=== PATIENT | male | born 1945 | race Caucasian/White ===

== ENCOUNTER 2017-09-02 10:06 | Observation (INO) | payer MEDICARE, OTHER ==
[2017-09-02] MEDS ORDERED: Ondansetron 4 MG/2 ML SDV IVPUSH ONE (10:36)
[2017-09-02] MEDS ORDERED: Sodium Chloride 0.9% 1,000 ML IV STA (10:36)
--- NOTE | 2017-09-02 10:42 | EDM.PDOC ---
ED HPI GENERAL MEDICAL PROBLEM - General Chief Complaint: General Stated Complaint: FEVER AND DIZZINESS Time Seen by Provider: 09/02/17 10:10 Source of Information: Reports: Patient History Limitations: Reports: No Limitations - History of Present Illness INITIAL COMMENTS - FREE TEXT/NARRATIVE: HISTORY AND PHYSICAL: History of present illness: Patient is a 72-year-old male who presents to the emergency room with complaints of dizziness, nausea, sweats. Reports last night he started to feel nauseous and had an episode of emesis. Woke up this morning and started to feel "cold sweats" and vomited again and then became dizzy. Describes the dizziness as the room spinning when he is moving his head. When he is sitting still the dizziness subsides. Patient is alert and orientated and neurologically intact. Patient reports that he went to [employer] yesterday for sinus congestion. He was prescribed Augmentin and Phenergan with codeine which she started yesterday. Patient denies any chest pain, shortness of breath, headache, blurred vision, or abdominal pain. Denies any recent head injury, falls, or trauma. Denies any near syncopal events. Has a past medical history of diabetes type 2 which he states is well- controlled and hypertension. Review of systems: As per history of present illness and below otherwise all systems reviewed and negative. Past medical history: As per history of present illness and as reviewed below otherwise noncontributory. Surgical history: As per history of present illness and as reviewed below otherwise noncontributory. Social history: No reported history of drug or alcohol abuse. Family history: As per history of present illness and as reviewed below otherwise noncontributory. Physical exam: General: On toxic-appearing 72-year-old male. Able to speak in full sentences without shortness of breath. Alert and oriented. HEENT: Atraumatic, normocephalic, pupils reactive, negative for conjunctival pallor or scleral icterus, tympanic membranes normal bilaterally, mucous membranes moist, throat clear, neck supple, nontender, trachea midline. No lymphadenopathy. Lungs: Faint expiratory wheezing noted to posterior lower lobes otherwise clear , breath sounds equal bilaterally, chest nontender. Heart: S1S2, regular rate and rhythm. Abdomen: Soft, obese, nondistended, nontender. Negative for masses. Negative for costovertebral tenderness. Pelvis: Stable nontender. Genitourinary: Deferred. Rectal: Deferred. Extremities: Atraumatic, moves all per self, steady on his feet, negative for cords or calf pain. Neurovascular unremarkable. Neuro: Awake, alert, oriented. Cranial nerves II through XII unremarkable. Cerebellum unremarkable. Motor and sensory unremarkable throughout. Exam nonfocal. 1040: Current blood pressure is 200/106, patient is currently taking Lostartan which he states he is compliant with. Due to patient complaints and elevated blood pressure and will obtain a head CT at this time. All other vital signs were reviewed by me. 1152: Current blood pressure is 169/82. Patient reports that he feels "somewhat better". Currently awaiting on head CT and chest x-ray results. 1210: Patient is asleep and oxygen saturation is 88% on room air. When he is awoken he will bring his O2 up to 92-94%. Patient states he still does not feel well. Dr. chi was consult at on this case. He is agreeable to admit this patient. Patient is aware and is agreeable to plan of care. Denies any further questions at this time. Diagnostics: CBC, CMP, troponin, EKG, head CT without contrast, 1 view chest, orthostatic vital signs Therapeutics: IV fluid, Zofran Rocephin and azithromycin Impression: Hypoxia with infiltrate Plan: Observation admission Definitive disposition and diagnosis as appropriate pending reevaluation and review of above. Onset: Today Location: Reports: Head - Related Data Allergies Allergy/AdvReac Type Severity Reaction Status Date / Time No Known Allergies Allergy Verified 09/02/17 10:28 Home Meds: Home Meds Fish Oil/Borage/Flax/Om3,6,9#1 [[place] 3-6-9 1,200 mg Softgel] 2 cap PO BID 03/28 [History] RX: Losartan Potassium 1 tab PO DAILY 03/28/16 [History] metFORMIN HCl [Metformin HCl] 1 tab PO BID 03/28/16 [History] Amoxicillin/Clavulanate K [Augmentin 875 MG/125 MG] 1 tab PO Q12HR 09/02/17 [ History] Past Medical History - Past Health History Medical/Surgical History: Denies Medical/Surgical History HEENT History: Reports: Impaired Vision Cardiovascular History: Reports: Hypertension Genitourinary History: Reports: Prostate Disorder Endocrine/Metabolic History: Reports: Diabetes, Type II Oncologic (Cancer) History: Reports: Prostate - Infectious Disease History Infectious Disease History: Reports: None - Past Surgical History Cardiovascular Surgical History: Reports: None Male Surgical History: Reports: Prostatectomy Social & Family History - Family History Family Medical History: Noncontributory - Tobacco Use Smoking Status *Q: Never Smoker Second Hand Smoke Exposure: Yes - Caffeine Use Caffeine Use: Reports: Coffee Caffeine Use Comment: 2 cups daily - Alcohol Use Days Per Week of Alcohol Use: 0 - Recreational Drug Use Recreational Drug Use: No ED ROS GENERAL - Review of Systems Review Of Systems: ROS reveals no pertinent complaints other than HPI. ED EXAM, GENERAL - Physical Exam Exam: See Below (See dictation) EKG INTERPRETATION EKG Date: 09/02/17 Time: 11:31 Rhythm: NSR Rate (Beats/Min): 66 Comparison: NA - No Prior EKG EKG Interpretation Comments: EKG reviewed by me and Dr. Luong Course - Vital Signs Last Recorded V/S: Last Vital Signs Temp 36.2 C 09/02/17 12:59 Pulse 92 09/02/17 13:01 Resp 15 09/02/17 13:01 BP 169/87 H 09/02/17 13:01 Pulse Ox 73 L 09/02/17 13:01 Orthostatic Blood Pressure [ 177/83 Standing] Orthostatic Blood Pressure [ 183/86 Sitting] Orthostatic Blood Pressure [ 191/83 Supine] - Orders/Labs/Meds Orders: Active Orders 24 hr Category Date Time Status EKG Documentation Completion [RC] STAT Care 09/02/17 10:36 Active Orthostatic Vital Signs [RC] ASDIRECTED Care 09/02/17 12:08 Active RT Aerosol Therapy [RC] ASDIRECTED Care 09/02/17 12:23 Active Chest 1V Frontal [CR] Stat Exams 09/02/17 10:36 Taken Head wo Cont [CT] Stat Exams 09/02/17 10:36 Taken Medication Orders Acetaminophen (Tylenol) 650 mg PO Q4H PRN PRN Reason: Pain (Mild 1-3)/fever Enoxaparin Sodium (Lovenox) 40 mg SUBCUT DAILY CANDICE Sodium Chloride (Normal Saline) 1,000 mls @ 100 mls/hr IV ASDIRECTED CANDICE Last Admin: 09/02/17 16:05 Dose: 100 mls/hr Losartan Potassium (Cozaar) 100 mg PO DAILY CANDICE Ondansetron HCl (Zofran) 4 mg IVPUSH Q4H PRN PRN Reason: Nausea Labs: Laboratory Tests 09/02/17 09/02/17 09/02/17 Range/Units 11:07 11:07 11:07 WBC 12.48 H (4.0-11.0) K/uL RBC 4.90 (4.50-5.90) M/uL Hgb 14.4 (13.0-17.0) g/dL Hct 43.1 (38.0-50.0) % MCV 88.0 (80.0-98.0) fL MCH 29.4 (27.0-32.0) pg MCHC 33.4 (31.0-37.0) g/dL RDW Std Deviation 44.9 (28.0-62.0) fl RDW Coeff of Isael 14 (11.0-15.0) % Plt Count 315 (150-400) K/uL MPV 9.40 (7.40-12.00) fL Neut % (Auto) 85.2 H (48.0-80.0) % Lymph % (Auto) 9.8 L (16.0-40.0) % [place] % (Auto) 3.7 (0.0-15.0) % Eos % (Auto) 1.1 (0.0-7.0) % Baso % (Auto) 0.2 (0.0-1.5) % Neut # (Auto) 10.6 H (1.4-5.7) K/uL Lymph # (Auto) 1.2 (0.6-2.4) K/uL [place] # (Auto) 0.5 (0.0-0.8) K/uL Eos # (Auto) 0.1 (0.0-0.7) K/uL Baso # (Auto) 0.0 (0.0-0.1) K/uL Nucleated RBC % 0.0 /100WBC Nucleated RBCs # 0 K/uL Sodium 141 (136-146) mmol/L Potassium 3.8 (3.5-5.1) mmol/L Chloride 107 (98-110) mmol/L Carbon Dioxide 22 (21-31) mmol/L BUN 18 (6.0-23.0) mg/dL Creatinine 0.9 (0.6-1.5) mg/dL Est Cr Clr Drug Dosing TNP Estimated GFR (MDRD) > 60.0 ml/min Glucose 159 H (60-110) mg/dL Calcium 9.1 (8.8-10.8) mg/dL Total Bilirubin 0.4 (0.1-1.5) mg/dL AST 22 (5-40) IU/L ALT 29 (8-54) IU/L Alkaline Phosphatase 46 (40-150) Troponin I < 0.10 (0.0-0.29) NG/ML Total Protein 7.1 (6.0-8.0) g/dL Albumin 4.0 (3.4-4.8) g/dL Globulin 3.1 (2.0-3.5) g/dL Albumin/Globulin Ratio 1.3 (1.3-2.8) Meds: Medications Generic Name Dose Route Start Last Admin Trade Name Freq PRN Reason Stop Dose Admin Acetaminophen 650 mg 09/02/17 15:39 Tylenol PO Q4H PRN Pain (Mild 1-3)/fever Enoxaparin Sodium 40 mg 09/03/17 09:00 Lovenox SUBCUT DAILY CANDICE Sodium Chloride 1,000 mls @ 100 mls/hr 09/02/17 16:00 09/02/17 16:05 Normal Saline IV 100 mls/hr ASDIRECTED CANDICE Administration Losartan Potassium 100 mg 09/03/17 09:00 Cozaar PO DAILY CANDICE Ondansetron HCl 4 mg 09/02/17 15:39 Zofran IVPUSH Q4H PRN Nausea Discontinued Medications Generic Name Dose Route Start Last Admin Trade Name Freq PRN Reason Stop Dose Admin Albuterol/Ipratropium 3 ml 09/02/17 12:22 09/02/17 12:43 Duoneb 3.0-0.5 Mg/3 Ml NEB 09/02/17 12:23 3 ml ONETIME ONE Administration Azithromycin 500 mg 09/02/17 12:28 09/02/17 12:49 Zithromax PO 09/02/17 12:29 500 mg ONETIME ONE Administration Azithromycin 250 mg 09/03/17 15:45 Zithromax PO Q24H CANDICE Sodium Chloride 1,000 mls @ 999 mls/hr 09/02/17 10:36 09/02/17 11:05 Normal Saline IV 09/02/17 11:36 999 mls/hr NOW STA Administration Sodium Chloride 1,000 mls @ 150 mls/hr 09/02/17 12:00 09/02/17 11:58 Normal Saline IV 150 mls/hr ASDIRECTED CANDICE Administration Ceftriaxone Sodium/Dextrose 1 50 mls @ 100 mls/hr 09/02/17 12:28 09/02/17 12: 49 gm/ Premix IV 09/02/17 12:57 100 mls/hr ONETIME ONE Administration Meclizine HCl 25 mg 09/02/17 11:51 09/02/17 11:57 Antivert PO 09/02/17 11:52 25 mg ONETIME ONE Administration Methylprednisolone Sodium Succinate 125 mg 09/02/17 12:22 09/02/17 12:50 Solu-Medrol IVPUSH 09/02/17 12:23 125 mg ONETIME ONE Administration Ondansetron HCl 4 mg 09/02/17 10:36 09/02/17 11:02 Zofran IVPUSH 09/02/17 10:37 4 mg ONETIME ONE Administration Departure - Departure Time of Disposition: 16:10 Disposition: Refer to Observation Clinical Impression: Hypoxia - Discharge Information - My Orders Last 24 Hours: My Active Orders 09/02/17 10:36 EKG Documentation Completion [RC] STAT Chest 1V Frontal [CR] Stat Head wo Cont [CT] Stat 09/02/17 12:08 Orthostatic Vital Signs [RC] ASDIRECTED 09/02/17 12:23 RT Aerosol Therapy [RC] ASDIRECTED - Assessment/Plan Last 24 Hours: My Active Orders 09/02/17 10:36 EKG Documentation Completion [RC] STAT Chest 1V Frontal [CR] Stat Head wo Cont [CT] Stat 09/02/17 12:08 Orthostatic Vital Signs [RC] ASDIRECTED 09/02/17 12:23 RT Aerosol Therapy [RC] ASDIRECTED
[2017-09-02 11:37] LABS: CHLORIDE,CL 107 mmol/L (98-110); SODIUM,NA 141 mmol/L (136-146)
[2017-09-02] MEDS ORDERED: Meclizine 25 MG Tab PO ONE (11:51)
[2017-09-02] MEDS ORDERED: Sodium Chloride 0.9% 1,000 ML IV SCH (12:00)
[2017-09-02] MEDS ORDERED: methylPREDNISolone Sodium Succinate 125 MG/2 ML SDV IVPUSH ONE (12:22)
[2017-09-02] MEDS ORDERED: Albuterol/Ipratropium 3.0-0.5 MG/3 ML Neb Soln NEB ONE (12:22)
[2017-09-02] MEDS ORDERED: cefTRIAXone 1 GM in Premix Bag 1 BAG IV ONE (12:28)
[2017-09-02] MEDS ORDERED: Azithromycin 250 MG Tab PO ONE (12:28)
--- NOTE | 2017-09-02 15:24 | PCM.HP ---
<Baluch,Ridge - Last Filed: 09/02/17 15:47> H&P History of Present Illness - General Date of Service: 09/02/17 Admit Problem/Dx: Admission Diagnosis/Problem Admission Diagnosis/Problem Hypoxia Source of Information: Patient History Limitations: Reports: No Limitations - History of Present Illness Initial Comments - Free Text/Narative: 72 year old male admitted for Dizziness & CAP. He states that he has been coughing for about 5-6 days now. Cough is productive with yellow colored spuutum. He went to [employer] [facility] yesterday and was prescribed amoxicillin 875 mg yesterday. He took the first dose in the morning. Then at night he started feeling nauseous and vomited. He vomited the second tab of amoxicillin. This morning the nausea continued. He took his amoxicillin and vomited it out. He then developed dizziness and decide to come to the ED. In the ED he was found to be hypoxic with BP 200/106. He was given O2, started on fluids and dizziness improved. He states now he is still feeling dizzy but it is much improved. His hypoxia has resolved. He denies any fever, chills, sob, rader, chest pain, vision change, numbness, tingling. He is not a smoker and does not have any history of COPD. He takes Losartan for HTN and Metformin for DM. ED Course: -CBC, CMP, troponin, EKG, head CT without contrast, 1 view chest, orthostatic vital signs -IV fluid, Zofran - Related Data Allergies/Adverse Reactions: Allergies Allergy/AdvReac Type Severity Reaction Status Date / Time No Known Allergies Allergy Verified 09/02/17 10:28 Home Medications: Home Meds Fish Oil/Borage/Flax/Om3,6,9#1 [[place] 3-6-9 1,200 mg Softgel] 2 cap PO BID 03/28 [History] Losartan Potassium 1 tab PO DAILY 03/28/16 [History] metFORMIN HCl [Metformin HCl] 1 tab PO BID 03/28/16 [History] Amoxicillin/Clavulanate K [Augmentin 875 MG/125 MG] 1 tab PO Q12HR 09/02/17 [ History] Past Medical History - Past Health History Medical/Surgical History: Denies Medical/Surgical History HEENT History: Reports: Impaired Vision Cardiovascular History: Reports: Hypertension Genitourinary History: Reports: Prostate Disorder Endocrine/Metabolic History: Reports: Diabetes, Type II Oncologic (Cancer) History: Reports: Prostate - Infectious Disease History Infectious Disease History: Reports: None - Past Surgical History HEENT Surgical History: Reports: None Cardiovascular Surgical History: Reports: None Male Surgical History: Reports: Prostatectomy Social & Family History - Family History Family Medical History: Noncontributory Cardiac: Reports: Hypertension Endocrine/Metabolic: Reports: Diabetes, type II - Tobacco Use Smoking Status *Q: Never Smoker Second Hand Smoke Exposure: No - Caffeine Use Caffeine Use: Reports: Coffee Caffeine Use Comment: 2 cups daily - Alcohol Use Days Per Week of Alcohol Use: 0 - Recreational Drug Use Recreational Drug Use: No H&P Review of Systems - Review of Systems: Review Of Systems: See Below General: Reports: No Symptoms HEENT: Reports: No Symptoms Pulmonary: Reports: No Symptoms Cardiovascular: Reports: No Symptoms Gastrointestinal: Reports: No Symptoms Genitourinary: Reports: No Symptoms Musculoskeletal: Reports: No Symptoms Skin: Reports: No Symptoms Psychiatric: Reports: No Symptoms Neurological: Reports: Dizziness Hematologic/Lymphatic: Reports: No Symptoms Immunologic: Reports: No Symptoms Exam - Exam Exam: See Below - Vital Signs Vital Signs: Last Vital Signs Temp 36.2 C 09/02/17 12:59 Pulse 92 09/02/17 13:01 Resp 15 09/02/17 13:01 BP 169/87 H 09/02/17 13:01 Pulse Ox 73 L 09/02/17 13:01 Weight: 130 kg - Exam General: Alert, Oriented, Cooperative HEENT: Conjunctiva Clear, EACs Clear, EOMI, Mucosa Moist & Ernest, Nares Patent, Normal Nasal Septum, Posterior Pharynx Clear, Pupils Equal, Pupils Reactive Neck: Supple, Trachea Midline Lungs: Normal Respiratory Effort, Other (mildly diminished breath sounds at right mid lung and right base ). No: Crackles, Rales, Rhonchi, Wheezing Cardiovascular: Regular Rate, Regular Rhythm GI/Abdominal Exam: Soft, Non-Tender Extremities: Normal Inspection, Non-Tender, No Pedal Edema, Normal Capillary Refill Peripheral Pulses: 2+: Radial (L), Radial (R) Skin: Warm, Dry, Intact Neurological: Cranial Nerves Intact, Reflexes Equal Bilateral Neuro Extensive - Mental Status: Alert, Oriented x3 Psychiatric: Alert, Normal Affect, Normal Mood - Patient Data Result Diagrams: 09/02/17 11:07 09/02/17 11:07 *Q Meaningful Use (ADM) - VTE *Q VTE Criteria *Q: - Stroke *Q Stroke Criteria *Q: - AMI *Q AMI Criteria *Q: Problem List Initiated/Reviewed/Updated: Yes Orders Last 24hrs: Medication Orders Sodium Chloride (Normal Saline) 1,000 mls @ 150 mls/hr IV ASDIRECTED [facility] Last Admin: 09/02/17 11:58 Dose: 150 mls/hr Assessment/Plan Comment:: Assessment: 72 yo male with history of DM and HTN admitted for CAP and Dizziness. He was hypoxic but is breathing comfortably on RA now. He will be admitted to observation. CAP: Start Ceftriaxone IV and Azithromycin PO. Obtain sputum & blood cultures if fever develops. Leukocytosis: as per above. monitor Dizziness: likely secondary to dehydration. start IV NS. Nausea and Vomiting: start Zofran 4mg IV PRN DM: hold home metformin for today. monitor glucose HTN: resume home Losartan <Duke Bajwa - Last Filed: 09/02/17 16:57> H&P History of Present Illness - General Admit Problem/Dx: Admission Diagnosis/Problem Admission Diagnosis/Problem Hypoxia Exam - Vital Signs Vital Signs: Last Vital Signs Temp 36.2 C 09/02/17 12:59 Pulse 92 09/02/17 13:01 Resp 15 09/02/17 13:01 BP 169/87 H 09/02/17 13:01 Pulse Ox 73 L 09/02/17 13:01 - Patient Data Lab Results Last 24 hrs: Laboratory Results - last 24 hr 09/02/17 Range/Units 15:58 POC Glucose 170 H (60-110) mg/dL Result Diagrams: 09/02/17 11:07 09/02/17 11:07 *Q Meaningful Use (ADM) - VTE *Q VTE Criteria *Q: - Stroke *Q Stroke Criteria *Q: - AMI *Q AMI Criteria *Q: Orders Last 24hrs: Active Orders 24 hr Category Date Time Status Patient Status [ADT] Routine ADT 09/02/17 15:39 Active Antiembolic Devices [RC] PER UNIT ROUTINE Care 09/02/17 15:43 Active Blood Glucose Check, Bedside [RC] BIDMEALS Care 09/02/17 15:39 Active May Shower [RC] ASDIRECTED Care 09/02/17 15:39 Active Oxygen Therapy [RC] PRN Care 09/02/17 15:39 Active Up With Assistance [RC] ASDIRECTED Care 09/02/17 15:39 Active VTE/DVT Education [RC] PER UNIT ROUTINE Care 09/02/17 15:39 Active Vital Signs [RC] Q4H Care 09/02/17 15:39 Active [place] [employer] Diet [DIET] Diet 09/02/17 Dinner Active BASIC METABOLIC PANEL,BMP [CHEM] AM Lab 09/03/17 05:11 Ordered BASIC METABOLIC PANEL,BMP [CHEM] AM Lab 09/04/17 05:11 Ordered BASIC METABOLIC PANEL,BMP [CHEM] AM Lab 09/05/17 05:11 Ordered CBC WITH AUTO DIFF [HEME] AM Lab 09/03/17 05:11 Ordered CBC WITH AUTO DIFF [HEME] AM Lab 09/04/17 05:11 Ordered CBC WITH AUTO DIFF [HEME] AM Lab 09/05/17 05:11 Ordered Acetaminophen [Tylenol] Med 09/02/17 15:39 Active 650 mg PO Q4H PRN Enoxaparin [Lovenox] Med 09/03/17 09:00 Active 40 mg SUBCUT DAILY Losartan [Cozaar] Med 09/03/17 09:00 Active 100 mg PO DAILY Ondansetron [Zofran] Med 09/02/17 15:39 Active 4 mg IVPUSH Q4H PRN Sodium Chloride 0.9% [Normal Saline] 1,000 ml Med 09/02/17 16:00 Active IV ASDIRECTED Sequential Compression Device [OM.PC] Per Unit Routine Oth 09/02/17 15:42 Ordered Resuscitation Status Routine Resus Stat 09/02/17 15:39 Ordered Medication Orders Acetaminophen (Tylenol) 650 mg PO Q4H PRN PRN Reason: Pain (Mild 1-3)/fever Enoxaparin Sodium (Lovenox) 40 mg SUBCUT DAILY CANDICE Sodium Chloride (Normal Saline) 1,000 mls @ 100 mls/hr IV ASDIRECTED CANDICE Last Admin: 09/02/17 16:05 Dose: 100 mls/hr Losartan Potassium (Cozaar) 100 mg PO DAILY CANDICE Ondansetron HCl (Zofran) 4 mg IVPUSH Q4H PRN PRN Reason: Nausea - Free Text/Narrative Note: I have interviewed, and examined this patient and his data. I have discussed his care with Dr. Horton and I agree with his plans.
[2017-09-02] MEDS ORDERED: Ondansetron 4 MG/2 ML SDV IVPUSH PRN (15:39)
[2017-09-02] MEDS ORDERED: Acetaminophen 325 MG Tab PO PRN (15:39)
[2017-09-02] MEDS: Sodium Chloride 0.9% 1,000 ML IV SCH ×2 (16:05→20:00)
[2017-09-03] MEDS: Sodium Chloride 0.9% 1,000 ML IV SCH (05:25)
[2017-09-03 06:40] LABS: CHLORIDE,CL 109 mmol/L (98-110); SODIUM,NA 139 mmol/L (136-146)
[2017-09-03 08:47] VITALS: BP 147/66
[2017-09-03] MEDS ORDERED: Losartan 50 MG Tab PO SCH (09:00)
[2017-09-03] MEDS ORDERED: Enoxaparin 40 MG/0.4 ML Syringe SUBCUT SCH (09:00)
[2017-09-03] MEDS ORDERED: Benzonatate 100 MG Cap PO ONE (10:32)
[2017-09-03] MEDS ORDERED: Levofloxacin 250 MG Tab PO ONE (10:33)
--- NOTE | 2017-09-03 10:35 | PCM.DCSUM1 ---
<Baluch,Ridge - Last Filed: 09/03/17 11:14> Discharge Summary - Hospital Course Free Text/Narrative:: 72 yo male admitted 09/02/17 due to dizziness and CAP. He was apparently also hypoxic in the ED but did not require any oxygen on the floor. He denied any fever, chills or sob. His adam was CTAB. He was started on IVF in the ED. On the floor his dizziness improved. He was treated with Ceftriaxone IV and Azithromycin PO. The following day his dizziness resolved. He was discharged home 09/03. He was given Levaquin 750 mg PO single dose prior to discharge. He had prescription for Levaquin 750 mg PO QD to start the following day and it was sent to [facility]. He is patient of Dr. Swift and f/u will be arranged with him. - Discharge Data Discharge Date: 09/03/17 Discharge Disposition: Home, Self-Care 01 Condition: Good - Patient Instructions Diet: Usual Diet as Tolerated Activity: As Tolerated, Rest and Relax Today Notify Provider of: Fever (only if it is not controlled with Tylenol ), Increased Pain, Swelling and Redness, Drainage, Nausea and/or Vomiting Other/Special Instructions: 1. Your antibiotics were sent to [facility]. You should start taking them tomorrow 09/04/17. 2. Please call Dr. Swift's office tomorrow morning to schedule yourself a follow-up appointment. 3. Keep youself hydrating by drinking lots of fluids - Discharge Plan Prescriptions/Med Rec: Benzonatate [Tessalon Perles] 100 mg PO TID PRN #30 cap PRN Reason: cough Levofloxacin [Levaquin] 750 mg PO DAILY 4 Days #4 tablet Home Medications: Home Meds Fish Oil/Borage/Flax/Om3,6,9#1 [Waves 3-6-9 1,200 mg Softgel] 2 cap PO BID 03/28 [History] Losartan Potassium 1 tab PO DAILY 03/28/16 [History] metFORMIN HCl [Metformin HCl] 1 tab PO BID 03/28/16 [History] Benzonatate [Tessalon Perles] 100 mg PO TID PRN #30 cap 09/03/17 [Rx] Levofloxacin [Levaquin] 750 mg PO DAILY 4 Days #4 tablet 09/03/17 [Rx] Patient Handouts: Levofloxacin tablets, Benzonatate capsules, Community- Acquired Pneumonia, Adult, [id number] Referrals: Jesús Swift DO [Primary Care Provider] - - Patient Data Vitals - Most Recent: Last Vital Signs Temp 36.9 C 09/03/17 08:00 Pulse 72 09/03/17 08:00 Resp 18 09/03/17 08:00 BP 147/66 H 09/03/17 08:49 Pulse Ox 97 09/03/17 08:00 Weight - Most Recent: 130 kg I&O - Last 24 hours: Intake & Output 09/02/17 09/03/17 09/03/17 22:59 06:59 14:59 Intake Total 240 2132 Output Total 300 1500 Balance -60 632 Lab Results - Last 24 hrs: Laboratory Results - last 24 hr 09/02/17 09/03/17 09/03/17 Range/Units 15:58 05:50 05:50 WBC 21.57 H (4.0-11.0) K/uL RBC 4.59 (4.50-5.90) M/uL Hgb 13.6 (13.0-17.0) g/dL Hct 40.6 (38.0-50.0) % MCV 88.5 (80.0-98.0) fL MCH 29.6 (27.0-32.0) pg MCHC 33.5 (31.0-37.0) g/dL RDW Std Deviation 42.6 (28.0-62.0) fl RDW Coeff of Isael 14 (11.0-15.0) % Plt Count 376 (150-400) K/uL MPV 9.90 (7.40-12.00) fL Neut % (Auto) 90.7 H (48.0-80.0) % Lymph % (Auto) 5.2 L (16.0-40.0) % Meagher % (Auto) 3.7 (0.0-15.0) % Eos % (Auto) 0.0 (0.0-7.0) % Baso % (Auto) 0.4 (0.0-1.5) % Neut # (Auto) 19.6 H (1.4-5.7) K/uL Lymph # (Auto) 1.1 (0.6-2.4) K/uL Meagher # (Auto) 0.8 (0.0-0.8) K/uL Eos # (Auto) 0.0 (0.0-0.7) K/uL Baso # (Auto) 0.1 (0.0-0.1) K/uL Sodium 139 (136-146) mmol/L Potassium 4.7 (3.5-5.1) mmol/L Chloride 109 (98-110) mmol/L Carbon Dioxide 18 L (21-31) mmol/L BUN 21 (6.0-23.0) mg/dL Creatinine 0.9 (0.6-1.5) mg/dL Est Cr Clr Drug Dosing 80.18 mL/min Estimated GFR (MDRD) > 60.0 ml/min Glucose 185 H (60-110) mg/dL POC Glucose 170 H (60-110) mg/dL Calcium 8.6 L (8.8-10.8) mg/dL // Range/Units 06:10 WBC (4.0-11.0) K/uL RBC (4.50-5.90) M/uL Hgb (13.0-17.0) g/dL Hct (38.0-50.0) % MCV (80.0-98.0) fL MCH (27.0-32.0) pg MCHC (31.0-37.0) g/dL RDW Std Deviation (28.0-62.0) fl RDW Coeff of Isael (11.0-15.0) % Plt Count (150-400) K/uL MPV (7.40-12.00) fL Neut % (Auto) (48.0-80.0) % Lymph % (Auto) (16.0-40.0) % Meagher % (Auto) (0.0-15.0) % Eos % (Auto) (0.0-7.0) % Baso % (Auto) (0.0-1.5) % Neut # (Auto) (1.4-5.7) K/uL Lymph # (Auto) (0.6-2.4) K/uL Meagher # (Auto) (0.0-0.8) K/uL Eos # (Auto) (0.0-0.7) K/uL Baso # (Auto) (0.0-0.1) K/uL Sodium (136-146) mmol/L Potassium (3.5-5.1) mmol/L Chloride (98-110) mmol/L Carbon Dioxide (21-31) mmol/L BUN (6.0-23.0) mg/dL Creatinine (0.6-1.5) mg/dL Est Cr Clr Drug Dosing mL/min Estimated GFR (MDRD) ml/min Glucose (60-110) mg/dL POC Glucose 159 H (60-110) mg/dL Calcium (8.8-10.8) mg/dL Med Orders - Current: Current Medications Acetaminophen (Tylenol) 650 mg PO Q4H PRN PRN Reason: Pain (Mild 1-3)/fever Last Admin: 09/02/17 20:13 Dose: 650 mg Benzonatate (Tessalon Perles) 100 mg PO ONETIME ONE Stop: 09/03/17 10:33 Enoxaparin Sodium (Lovenox) 40 mg SUBCUT DAILY [facility] Last Admin: 09/03/17 08:48 Dose: 40 mg Sodium Chloride (Normal Saline) 1,000 mls @ 100 mls/hr IV ASDIRECTED [facility] Last Admin: 09/03/17 05:25 Dose: 100 mls/hr Levofloxacin (Levaquin) 750 mg PO ONETIME ONE Stop: 09/03/17 10:34 Losartan Potassium (Cozaar) 100 mg PO DAILY [facility] Last Admin: 09/03/17 08:49 Dose: 100 mg Ondansetron HCl (Zofran) 4 mg IVPUSH Q4H PRN PRN Reason: Nausea Discontinued Medications Albuterol/Ipratropium (Duoneb 3.0-0.5 Mg/3 Ml) 3 ml NEB ONETIME ONE Stop: 09/02/17 12:23 Last Admin: 09/02/17 12:43 Dose: 3 ml Azithromycin (Zithromax) 500 mg PO ONETIME ONE Stop: 09/02/17 12:29 Last Admin: 09/02/17 12:49 Dose: 500 mg Azithromycin (Zithromax) 250 mg PO Q24H [facility] Sodium Chloride (Normal Saline) 1,000 mls @ 999 mls/hr IV NOW STA Stop: 09/02/17 11:36 Last Admin: 09/02/17 11:05 Dose: 999 mls/hr Sodium Chloride (Normal Saline) 1,000 mls @ 150 mls/hr IV ASDIRECTED [facility] Last Admin: 09/02/17 11:58 Dose: 150 mls/hr Ceftriaxone Sodium/Dextrose 1 (gm/ Premix) 50 mls @ 100 mls/hr IV ONETIME ONE Stop: 09/02/17 12:57 Last Admin: 09/02/17 12:49 Dose: 100 mls/hr Meclizine HCl (Antivert) 25 mg PO ONETIME ONE Stop: 09/02/17 11:52 Last Admin: 09/02/17 11:57 Dose: 25 mg Methylprednisolone Sodium Succinate (Solu-Medrol) 125 mg IVPUSH ONETIME ONE Stop: 09/02/17 12:23 Last Admin: 09/02/17 12:50 Dose: 125 mg Ondansetron HCl (Zofran) 4 mg IVPUSH ONETIME ONE Stop: 09/02/17 10:37 Last Admin: 09/02/17 11:02 Dose: 4 mg *Q Meaningful Use (DIS) - VTE *Q VTE Criteria *Q: - Stroke *Q Stroke Criteria *Q: - AMI *Q AMI Criteria *Q: <Duke Bajwa - Last Filed: 09/03/17 12:33> - Patient Data Vitals - Most Recent: Last Vital Signs Temp 36.9 C 09/03/17 08:00 Pulse 72 09/03/17 08:00 Resp 18 09/03/17 08:00 BP 147/66 H 09/03/17 08:49 Pulse Ox 97 09/03/17 08:00 I&O - Last 24 hours: Intake & Output 09/02/17 09/03/17 09/03/17 22:59 06:59 14:59 Intake Total 240 2132 1440 Output Total 300 1500 950 Balance -60 632 490 Lab Results - Last 24 hrs: Laboratory Results - last 24 hr 09/02/17 09/03/17 09/03/17 Range/Units 15:58 05:50 05:50 WBC 21.57 H (4.0-11.0) K/uL RBC 4.59 (4.50-5.90) M/uL Hgb 13.6 (13.0-17.0) g/dL Hct 40.6 (38.0-50.0) % MCV 88.5 (80.0-98.0) fL MCH 29.6 (27.0-32.0) pg MCHC 33.5 (31.0-37.0) g/dL RDW Std Deviation 42.6 (28.0-62.0) fl RDW Coeff of Isael 14 (11.0-15.0) % Plt Count 376 (150-400) K/uL MPV 9.90 (7.40-12.00) fL Neut % (Auto) 90.7 H (48.0-80.0) % Lymph % (Auto) 5.2 L (16.0-40.0) % Meagher % (Auto) 3.7 (0.0-15.0) % Eos % (Auto) 0.0 (0.0-7.0) % Baso % (Auto) 0.4 (0.0-1.5) % Neut # (Auto) 19.6 H (1.4-5.7) K/uL Lymph # (Auto) 1.1 (0.6-2.4) K/uL Meagher # (Auto) 0.8 (0.0-0.8) K/uL Eos # (Auto) 0.0 (0.0-0.7) K/uL Baso # (Auto) 0.1 (0.0-0.1) K/uL Sodium 139 (136-146) mmol/L Potassium 4.7 (3.5-5.1) mmol/L Chloride 109 (98-110) mmol/L Carbon Dioxide 18 L (21-31) mmol/L BUN 21 (6.0-23.0) mg/dL Creatinine 0.9 (0.6-1.5) mg/dL Est Cr Clr Drug Dosing 80.18 mL/min Estimated GFR (MDRD) > 60.0 ml/min Glucose 185 H (60-110) mg/dL POC Glucose 170 H (60-110) mg/dL Calcium 8.6 L (8.8-10.8) mg/dL 09/03/17 Range/Units 06:10 WBC (4.0-11.0) K/uL RBC (4.50-5.90) M/uL Hgb (13.0-17.0) g/dL Hct (38.0-50.0) % MCV (80.0-98.0) fL MCH (27.0-32.0) pg MCHC (31.0-37.0) g/dL RDW Std Deviation (28.0-62.0) fl RDW Coeff of Isael (11.0-15.0) % Plt Count (150-400) K/uL MPV (7.40-12.00) fL Neut % (Auto) (48.0-80.0) % Lymph % (Auto) (16.0-40.0) % Meagher % (Auto) (0.0-15.0) % Eos % (Auto) (0.0-7.0) % Baso % (Auto) (0.0-1.5) % Neut # (Auto) (1.4-5.7) K/uL Lymph # (Auto) (0.6-2.4) K/uL Meagher # (Auto) (0.0-0.8) K/uL Eos # (Auto) (0.0-0.7) K/uL Baso # (Auto) (0.0-0.1) K/uL Sodium (136-146) mmol/L Potassium (3.5-5.1) mmol/L Chloride (98-110) mmol/L Carbon Dioxide (21-31) mmol/L BUN (6.0-23.0) mg/dL Creatinine (0.6-1.5) mg/dL Est Cr Clr Drug Dosing mL/min Estimated GFR (MDRD) ml/min Glucose (60-110) mg/dL POC Glucose 159 H (60-110) mg/dL Calcium (8.8-10.8) mg/dL Med Orders - Current: Current Medications Acetaminophen (Tylenol) 650 mg PO Q4H PRN PRN Reason: Pain (Mild 1-3)/fever Last Admin: 09/02/17 20:13 Dose: 650 mg Enoxaparin Sodium (Lovenox) 40 mg SUBCUT DAILY [facility] Last Admin: 09/03/17 08:48 Dose: 40 mg Sodium Chloride (Normal Saline) 1,000 mls @ 100 mls/hr IV ASDIRECTED [facility] Last Admin: 09/03/17 05:25 Dose: 100 mls/hr Losartan Potassium (Cozaar) 100 mg PO DAILY [facility] Last Admin: 09/03/17 08:49 Dose: 100 mg Ondansetron HCl (Zofran) 4 mg IVPUSH Q4H PRN PRN Reason: Nausea Discontinued Medications Albuterol/Ipratropium (Duoneb 3.0-0.5 Mg/3 Ml) 3 ml NEB ONETIME ONE Stop: 09/02/17 12:23 Last Admin: 09/02/17 12:43 Dose: 3 ml Azithromycin (Zithromax) 500 mg PO ONETIME ONE Stop: 09/02/17 12:29 Last Admin: 09/02/17 12:49 Dose: 500 mg Azithromycin (Zithromax) 250 mg PO Q24H [facility] Benzonatate (Tessalon Perles) 100 mg PO ONETIME ONE Stop: 09/03/17 10:33 Last Admin: 09/03/17 10:58 Dose: 100 mg Sodium Chloride (Normal Saline) 1,000 mls @ 999 mls/hr IV NOW STA Stop: 09/02/17 11:36 Last Admin: 09/02/17 11:05 Dose: 999 mls/hr Sodium Chloride (Normal Saline) 1,000 mls @ 150 mls/hr IV ASDIRECTED [facility] Last Admin: 09/02/17 11:58 Dose: 150 mls/hr Ceftriaxone Sodium/Dextrose 1 (gm/ Premix) 50 mls @ 100 mls/hr IV ONETIME ONE Stop: 09/02/17 12:57 Last Admin: 09/02/17 12:49 Dose: 100 mls/hr Levofloxacin (Levaquin) 750 mg PO ONETIME ONE Stop: 09/03/17 10:34 Last Admin: 09/03/17 10:58 Dose: 750 mg Meclizine HCl (Antivert) 25 mg PO ONETIME ONE Stop: 09/02/17 11:52 Last Admin: 09/02/17 11:57 Dose: 25 mg Methylprednisolone Sodium Succinate (Solu-Medrol) 125 mg IVPUSH ONETIME ONE Stop: 09/02/17 12:23 Last Admin: 09/02/17 12:50 Dose: 125 mg Ondansetron HCl (Zofran) 4 mg IVPUSH ONETIME ONE Stop: 09/02/17 10:37 Last Admin: 09/02/17 11:02 Dose: 4 mg *Q Meaningful Use (DIS) - VTE *Q VTE Criteria *Q: - Stroke *Q Stroke Criteria *Q: - AMI *Q AMI Criteria *Q: - Free Text/Narrative Note: Dr. Bajwa writes: I have examined this patient this morning and he feels greatly improved and desires to be discharged. I have discussed him with Dr. Horton and I agree with Dr. Horton's note, assessments and plan.
[2017-09-03] MEDS ORDERED: Azithromycin 250 MG Tab PO SCH (15:45)
--- NOTE | 2017-09-04 11:05 | CR ---
EXAM DATE: 09/02/17 PATIENT'S AGE: 72 Patient: MISHA MAHAN Facility: [place], [place] Site . Site : 1945 Study: XRay Chest [id number] 11:19:35 AM Ordering Physician: Doctor Hill Final Report: INDICATION: Dizziness. Technique: AP portable chest x-ray. Comparison: 04/05/2014. Findings: Heart size normal. Mediastinum mildly prominent which may be related to tortuous or ectatic thoracic aorta. No focal infiltrate or consolidation either lung. Minimal atelectasis left lung base. Pulmonary vascularity in the central right lung and perihilar region is mildly increased and this is stable. Chest otherwise unremarkable. Dictated by Patel Pulido MD @ Sep 02 2017 11:49AM (Electronic Signature) Report Signed by Proxy. GLENDA
--- NOTE | 2017-09-04 11:06 | CT ---
EXAM DATE: 09/02/17 PATIENT'S AGE: 72 Patient: MISHA MAHAN Facility: [place], [place] Site Site : 47 Study: CT Head [id number] 11:34:59 AM Ordering Physician: MIKE OLIVEIRA Final Report: INDICATION: Dizziness. Nausea, vomiting, and cough. Technique: CT head without IV contrast. Findings: No intracranial hemorrhage, edema, or mass effect. Mild cerebral and cerebellar atrophy. Remainder negative. Impression: No acute intracranial disease. Findings as above. Please note that all CT scans at this facility use dose modulation, iterative reconstruction, and/or weight-based dosing when appropriate to reduce radiation dose to as low as reasonably achievable. Dictated by Patel Pulido MD @ Sep 02 2017 11:52AM (Electronic Signature) Report Signed by Proxy. MTDD
== END 2017-09-03 11:20 | disposition home or self-care (01) ==
LOC: MW.ED 10:06 → MW.MS 12:25
PROVIDERS: ADMIT Family Medicine; ATTEND Family Medicine
DX: J18.9 Pneumonia, unspecified organism (principal); R09.02 Hypoxemia; R42 Dizziness and giddiness; I10 Essential (primary) hypertension; E11.9 Type 2 diabetes mellitus without complications; Z85.46 Personal history of malignant neoplasm of prostate; Z79.84 Long term (current) use of oral hypoglycemic drugs; Z79.899 Other long term (current) drug therapy; Z90.79 Acquired absence of other genital organ(s)
CPT/HCPCS: 36415; 70450; 71010; 80048; 80053; 82962; 84484; 85025; 93005; 94640; 96361; 96365; 96372; 96375; 99285; A9270; G0378; J0696; J1650; J2405; J2930; J7040; 99284

== ENCOUNTER 2017-10-31 13:38 | Observation (INO) | payer MEDICARE, OTHER ==
--- NOTE | 2017-10-31 13:46 | EDM.PDOC ---
ED HPI GENERAL MEDICAL PROBLEM - General Stated Complaint: CHEST PAIN Time Seen by Provider: 10/31/17 13:41 Source of Information: Reports: Patient History Limitations: Reports: No Limitations - History of Present Illness INITIAL COMMENTS - FREE TEXT/NARRATIVE: HISTORY AND PHYSICAL: Chest pain History of present illness: Patient is a 72-year-old male who presents to the emergency room today with complaints of left-sided chest pain since yesterday afternoon. He states that he was resting when the pain started, and does not radiate anywhere such as the jaw, shoulder or down the arm. He did report some intermittent nausea which since has resolved. Resting makes it better. Physical activity makes the pain worse. It is not reproducible with palpation. Reports he checks his blood pressure at home and was concerned as his readings have been 200/100, has been taking his medications appropriately. Current blood pressure is 200/93. Does take antihypertensive daily. Denies any shortness of breath, diaphoresis, headache, change in vision, abdominal pain, or diarrhea. No previous history of smoking. Patient has a history of diabetes type 2, hypertension, prostatectomy. Was recently admitted on 09/02/2017 for dizziness and community-acquired pneumonia and was discharged with antibiotics. Review of systems: As per history of present illness and below otherwise all systems reviewed and negative. Past medical history: As per history of present illness and as reviewed below otherwise noncontributory. Surgical history: As per history of present illness and as reviewed below otherwise noncontributory. Social history: No reported history of drug or alcohol abuse. Family history: As per history of present illness and as reviewed below otherwise noncontributory. Physical exam: Gen.: Nontoxic appearing 72-year-old male. Alert and oriented. Able to speak in full sentences without shortness of breath. HEENT: Atraumatic, normocephalic, pupils reactive, negative for conjunctival pallor or scleral icterus, mucous membranes moist, throat clear, neck supple, no lymphadenopathy, nontender, trachea midline. Lungs: Clear to auscultation, breath sounds equal bilaterally, chest nontender. Heart: S1S2, regular rate and rhythm with no overt murmurs. Abdomen: Soft, obese, nondistended, nontender. Negative for masses or hepatosplenomegaly. Negative for costovertebral tenderness. Pelvis: Stable nontender. Genitourinary: Deferred. Rectal: Deferred. Extremities: Atraumatic, moves all extremities per self, negative for cords or calf pain. Neurovascular unremarkable. Neuro: Awake, alert, oriented. Cranial nerves II through XII unremarkable. Cerebellum unremarkable. Motor and sensory unremarkable throughout. Exam nonfocal. Upon arrival the patient's chest pain was 8 out of 10, which now has come down to 5 out of 10 since being triaged. I discussed the diagnostics that would be performed while he is here in the emergency room. I did inform the patient to expect to be offered admission if all his labs return normal. Patient voices understanding and is agreeable to plan of care. 1400- patient received 2 out of the 3 doses of nitroglycerin. Currently chest pain-free. Blood pressure has improved somewhat, still being monitored. 1435- chest x-ray is within normal limits, no evidence of a pneumonia. 1445- lab results are all within normal limits. Dr. Guevara paged at this time. 1450- Dr. Guevara agreed to keep the patient for observation for chest pain rule out PR. He requested metoprolol orally to be given in the emergency room. Diagnostics: CBC, CMP, troponin, EKG, one view chest x-ray Therapeutics: patient monitor, aspirin Impression: Chest pain rule out PR Plan: Observation admission to [facility] on telemetry Definitive disposition and diagnosis as appropriate pending reevaluation and review of above. Onset Date: 10/30/17 Location: Reports: Chest Improves with: Reports: Rest chest Pain Score (Numeric/FACES): 8 - Related Data Allergies Allergy/AdvReac Type Severity Reaction Status Date / Time No Known Allergies Allergy Verified 10/31/17 13:47 Home Meds: Home Meds Losartan Potassium 1 tab PO DAILY 03/28/16 [History] metFORMIN HCl [Metformin HCl] 1 tab PO BID 03/28/16 [History] Past Medical History - Past Health History Medical/Surgical History: Denies Medical/Surgical History HEENT History: Reports: Impaired Vision Cardiovascular History: Reports: Hypertension Genitourinary History: Reports: Prostate Disorder Endocrine/Metabolic History: Reports: Diabetes, Type II Oncologic (Cancer) History: Reports: Prostate - Infectious Disease History Infectious Disease History: Reports: None - Past Surgical History Cardiovascular Surgical History: Reports: None Male Surgical History: Reports: Prostatectomy Social & Family History - Family History Family Medical History: Noncontributory Cardiac: Reports: Hypertension Endocrine/Metabolic: Reports: Diabetes, type II - Tobacco Use Smoking Status *Q: Never Smoker Second Hand Smoke Exposure: Yes - Caffeine Use Caffeine Use: Reports: Coffee Caffeine Use Comment: 2 cups daily - Alcohol Use Days Per Week of Alcohol Use: 0 - Recreational Drug Use Recreational Drug Use: No ED ROS GENERAL - Review of Systems Review Of Systems: ROS reveals no pertinent complaints other than HPI. ED EXAM, GENERAL - Physical Exam Exam: See Below (See Dictation) Course - Vital Signs Last Recorded V/S: Last Vital Signs Temp 97.6 F 10/31/17 13:38 Pulse 92 10/31/17 14:20 Resp 20 10/31/17 14:11 BP 173/106 H 10/31/17 14:20 Pulse Ox 94 L 10/31/17 14:11 - Orders/Labs/Meds Orders: Active Orders 24 hr Category Date Time Status Admission Status [Patient Status] [ADT] Stat ADT 10/31/17 14:53 Active EKG Documentation Completion [RC] STAT Care 10/31/17 13:42 Active Nitroglycerin [Nitrostat] Med 10/31/17 13:53 Active 0.4 mg SL Q5M PRN Sodium Chloride 0.9% [Saline Flush] Med 10/31/17 13:54 Active 10 ml FLUSH ASDIRECTED PRN Sodium Chloride 0.9% [Saline Flush] Med 10/31/17 13:54 Active 2.5 ml FLUSH ASDIRECTED PRN Saline Lock Insert [OM.PC] Stat Oth 10/31/17 13:54 Ordered Medication Orders Nitroglycerin (Nitrostat) 0.4 mg SL Q5M PRN PRN Reason: Chest Pain Last Admin: 10/31/17 14:06 Dose: 0.4 mg Admin: 10/31/17 13:58 Dose: 0.4 mg Sodium Chloride (Saline Flush) 10 ml FLUSH ASDIRECTED PRN PRN Reason: Keep Vein Open Sodium Chloride (Saline Flush) 2.5 ml FLUSH ASDIRECTED PRN PRN Reason: Keep Vein Open Labs: Laboratory Tests 10/31/17 10/31/17 Range/Units 13:57 13:57 WBC 12.36 H (4.0-11.0) K/uL RBC 4.78 (4.50-5.90) M/uL Hgb 14.2 (13.0-17.0) g/dL Hct 42.4 (38.0-50.0) % MCV 88.7 (80.0-98.0) fL MCH 29.7 (27.0-32.0) pg MCHC 33.5 (31.0-37.0) g/dL RDW Std Deviation 46.2 (28.0-62.0) fl RDW Coeff of Isael 14 (11.0-15.0) % Plt Count 353 (150-400) K/uL MPV 9.30 (7.40-12.00) fL Neut % (Auto) 77.0 (48.0-80.0) % Lymph % (Auto) 14.4 L (16.0-40.0) % [place] % (Auto) 6.6 (0.0-15.0) % Eos % (Auto) 1.8 (0.0-7.0) % Baso % (Auto) 0.2 (0.0-1.5) % Neut # (Auto) 9.5 H (1.4-5.7) K/uL Lymph # (Auto) 1.8 (0.6-2.4) K/uL [place] # (Auto) 0.8 (0.0-0.8) K/uL Eos # (Auto) 0.2 (0.0-0.7) K/uL Baso # (Auto) 0.0 (0.0-0.1) K/uL Nucleated RBC % 0.0 /100WBC Nucleated RBCs # 0 K/uL Sodium 140 (136-146) mmol/L Potassium 3.7 (3.5-5.1) mmol/L Chloride 106 (98-110) mmol/L Carbon Dioxide 22 (21-31) mmol/L BUN 17 (6.0-23.0) mg/dL Creatinine 0.9 (0.6-1.5) mg/dL Est Cr Clr Drug Dosing 80.18 mL/min Estimated GFR (MDRD) > 60.0 ml/min Glucose 125 H (60-110) mg/dL Calcium 9.5 (8.8-10.8) mg/dL Total Bilirubin 0.4 (0.1-1.5) mg/dL AST 23 (5-40) IU/L ALT 33 (8-54) IU/L Alkaline Phosphatase 49 (40-150) Troponin I < 0.10 (0.0-0.29) NG/ML Total Protein 7.3 (6.0-8.0) g/dL Albumin 4.1 (3.4-4.8) g/dL Globulin 3.2 (2.0-3.5) g/dL Albumin/Globulin Ratio 1.3 (1.3-2.8) Meds: Medications Generic Name Dose Route Start Last Admin Trade Name Freq PRN Reason Stop Dose Admin Nitroglycerin 0.4 mg 10/31/17 13:53 10/31/17 14:06 Nitrostat SL 0.4 mg Q5M PRN Administration Chest Pain Sodium Chloride 10 ml 10/31/17 13:54 Saline Flush FLUSH ASDIRECTED PRN Keep Vein Open Sodium Chloride 2.5 ml 10/31/17 13:54 Saline Flush FLUSH ASDIRECTED PRN Keep Vein Open Discontinued Medications Generic Name Dose Route Start Last Admin Trade Name Freq PRN Reason Stop Dose Admin Aspirin 324 mg 10/31/17 13:53 10/31/17 13:56 Aspirin PO 10/31/17 13:54 324 mg ONETIME ONE Administration Aspirin Confirm 10/31/17 13:54 10/31/17 14:06 Aspirin Administered 10/31/17 13:55 Not Given Dose 324 mg .ROUTE .STK-MED ONE Metoprolol Succinate 50 mg 10/31/17 14:52 Toprol Xl PO 10/31/17 14:53 ONETIME ONE Nitroglycerin Confirm 10/31/17 13:55 10/31/17 14:07 Nitrostat Administered 10/31/17 13:56 Not Given Dose 0.4 mg .ROUTE .STK-MED ONE Departure - Departure Time of Disposition: 14:53 Disposition: Refer to Observation Clinical Impression: Chest pain, rule out acute myocardial infarction Referrals: Jesús Swift DO [Primary Care Provider] - - My Orders Last 24 Hours: My Active Orders 10/31/17 13:42 EKG Documentation Completion [RC] STAT 10/31/17 13:53 Nitroglycerin [Nitrostat] 0.4 mg SL Q5M PRN 10/31/17 13:54 Sodium Chloride 0.9% [Saline Flush] 10 ml FLUSH ASDIRECTED PRN Sodium Chloride 0.9% [Saline Flush] 2.5 ml FLUSH ASDIRECTED PRN Saline Lock Insert [OM.PC] Stat 10/31/17 14:53 Admission Status [Patient Status] [ADT] Stat - Assessment/Plan Last 24 Hours: My Active Orders 10/31/17 13:42 EKG Documentation Completion [RC] STAT 10/31/17 13:53 Nitroglycerin [Nitrostat] 0.4 mg SL Q5M PRN 10/31/17 13:54 Sodium Chloride 0.9% [Saline Flush] 10 ml FLUSH ASDIRECTED PRN Sodium Chloride 0.9% [Saline Flush] 2.5 ml FLUSH ASDIRECTED PRN Saline Lock Insert [OM.PC] Stat 10/31/17 14:53 Admission Status [Patient Status] [ADT] Stat
[2017-10-31] MEDS ORDERED: Aspirin 81 MG Tab.Chew PO ONE (13:53)
[2017-10-31] MEDS ORDERED: Sodium Chloride 0.9% 2.5 ML Syringe FLUSH PRN (13:54)
[2017-10-31] MEDS ORDERED: Aspirin 81 MG Tab.Chew ONE (13:54)
[2017-10-31] MEDS ORDERED: Sodium Chloride 0.9% 10 ML Syringe FLUSH PRN (13:54)
[2017-10-31] MEDS ORDERED: Nitroglycerin 0.4 MG Tab.SL ONE (13:55)
[2017-10-31] MEDS: Nitroglycerin 0.4 MG Tab.SL SL PRN ×2 (13:58→14:06)
--- NOTE | 2017-10-31 14:23 | CR ---
EXAMINATION: Portable chest radiograph. HISTORY: Chest pain. FINDINGS: The trachea is midline. The cardiomediastinal silhouette is within normal limits. No pulmonary infilt rates, effusions or pneumothorax. Osseous structures appear unremarkable. IMPRESSION: No acute cardiopulmonary process.
[2017-10-31 14:30] LABS: CHLORIDE,CL 106 mmol/L (98-110); SODIUM,NA 140 mmol/L (136-146)
[2017-10-31] MEDS ORDERED: Metoprolol Succinate 50 MG Tab.ER PO ONE (14:52)
[2017-10-31] MEDS: Insulin Aspart 100 Units/ML 3 ML Pen SUBCUT SCH (17:58)
--- NOTE | 2017-10-31 21:04 | PCM.HP ---
H&P History of Present Illness - History of Present Illness Initial Comments - Free Text/Narative: 72 yo male with pmh of hyertenison and diabetes who presents with several day history of chest pain. He reports the chest pain as substernal. It is not associated with dizziness, shortness of breath or diaphoresis. Resting improves his chest pain. He has been taking losartan for his hypertenison but he has noted his blood pressure in the 200s/100s at home. He has been taking aspirin twice daily at home. IN the ED he was note to have a no signs of ischemia on EKG and negative troponin. His chest pain largely resolved with taking Rolaids prior to presentation and his chest pain disappeared after received nitro. He was also given metoprol 50mg oral for his high blood pressure. chest Pain Score (Numeric/FACES): 8 - Related Data Allergies/Adverse Reactions: Allergies Allergy/AdvReac Type Severity Reaction Status Date / Time No Known Allergies Allergy Verified 10/31/17 13:47 Home Medications: Home Meds Losartan Potassium 100 mg PO DAILY 03/28/16 [History] metFORMIN HCl [Metformin HCl] 1 tab PO BID 03/28/16 [History] Aspirin [Halfprin] 81 mg PO DAILY #30 tab.ec 11/01/17 [Rx] Metoprolol Succinate 50 mg PO DAILY #30 tab.er.24h 11/01/17 [Rx] Nitroglycerin [IJP: Nitroglycerin] 0.4 mg SL Q5M PRN #6 tablet, sublingual 11/01 [Rx] Pravastatin [Pravachol] 20 mg PO BEDTIME #30 tablet 11/01/17 [Rx] Past Medical History - Past Health History Medical/Surgical History: Denies Medical/Surgical History HEENT History: Reports: Impaired Vision Cardiovascular History: Reports: Hypertension Genitourinary History: Reports: Prostate Disorder Endocrine/Metabolic History: Reports: Diabetes, Type II Oncologic (Cancer) History: Reports: Prostate - Infectious Disease History Infectious Disease History: Reports: None - Past Surgical History Cardiovascular Surgical History: Reports: None Male Surgical History: Reports: Prostatectomy Social & Family History - Family History Family Medical History: Noncontributory Cardiac: Reports: Hypertension Endocrine/Metabolic: Reports: Diabetes, type II - Tobacco Use Smoking Status *Q: Never Smoker Second Hand Smoke Exposure: No - Caffeine Use Caffeine Use: Reports: Coffee Caffeine Use Comment: 2 cups daily - Alcohol Use Days Per Week of Alcohol Use: 0 - Recreational Drug Use Recreational Drug Use: No H&P Review of Systems - Review of Systems: Review Of Systems: ROS reveals no pertinent complaints other than HPI. Exam - Exam Exam: See Below - Vital Signs Vital Signs: Last Vital Signs Temp 36.2 C 10/31/17 16:39 Pulse 62 10/31/17 16:39 Resp 16 10/31/17 16:39 BP 166/71 H 10/31/17 16:39 Pulse Ox 97 10/31/17 16:39 Weight: 133.356 kg - Exam General: Alert, Oriented HEENT: Mucosa Moist & [place] Lungs: Clear to Auscultation, Normal Respiratory Effort Cardiovascular: Regular Rate, Regular Rhythm GI/Abdominal Exam: Normal Bowel Sounds, Soft, Non-Tender Extremities: Non-Tender, No Pedal Edema Skin: Warm, Dry, Intact - Patient Data Lab Results Last 24 hrs: Laboratory Results - last 24 hr 10/31/17 Range/Units 17:14 POC Glucose 101 (60-110) mg/dL Result Diagrams: 11/01/17 02:03 11/01/17 02:03 *Q Meaningful Use (ADM) - VTE *Q VTE Criteria *Q: - Stroke *Q Stroke Criteria *Q: - AMI *Q AMI Criteria *Q: Problem List Initiated/Reviewed/Updated: Yes Orders Last 24hrs: Active Orders 24 hr Category Date Time Status Telemetry Monitoring [Cardiac Monitoring] [RC] . Care 10/31/17 15:32 Active DIRECTED [employer] [employer] Diet [DIET] Diet 10/31/17 Dinner Active TROPONIN I [CHEM] Q6H Lab 10/31/17 20:34 Received TROPONIN I [CHEM] Q6H Lab 11/01/17 01:57 Ordered Insulin Aspart [NovoLOG] Med 10/31/17 17:00 Active See Protocol SUBCUT TIDAC Losartan [Cozaar] Med 11/01/17 09:00 Active 100 mg PO DAILY Medication Orders Insulin Aspart (Novolog) 0 unit SUBCUT TIDAC [facility] PRN Reason: Protocol Last Admin: 10/31/17 17:58 Dose: Not Given Losartan Potassium (Cozaar) 100 mg PO DAILY [facility] Nitroglycerin (Nitrostat) 0.4 mg SL Q5M PRN PRN Reason: Chest Pain Last Admin: 10/31/17 14:06 Dose: 0.4 mg Admin: 10/31/17 13:58 Dose: 0.4 mg Sodium Chloride (Saline Flush) 10 ml FLUSH ASDIRECTED PRN PRN Reason: Keep Vein Open Last Admin: 10/31/17 14:19 Dose: 10 ml Sodium Chloride (Saline Flush) 2.5 ml FLUSH ASDIRECTED PRN PRN Reason: Keep Vein Open Last Admin: 10/31/17 14:20 Dose: 2.5 ml Assessment/Plan Comment:: 72 yo male who presented with chest pain.
[2017-11-01] MEDS: Insulin Aspart 100 Units/ML 3 ML Pen SUBCUT SCH (06:47)
[2017-11-01 08:43] LABS: CHLORIDE,CL 103 mmol/L (98-110); SODIUM,NA 141 mmol/L (136-146)
[2017-11-01] MEDS ORDERED: Losartan 50 MG Tab PO SCH (09:00)
[2017-11-01] MEDS ORDERED: Metoprolol Succinate 25 MG Tab.ER PO SCH (09:00)
[2017-11-01] MEDS ORDERED: Aspirin 81 MG Tab.EC PO SCH (09:00)
[2017-11-01 09:13] VITALS: BP 178/85
--- NOTE | 2017-11-01 10:34 | PCM.DCSUM1 ---
<Sachi Sow - Last Filed: 11/03/17 09:38> Discharge Summary - Hospital Course Free Text/Narrative:: 72 yo male with history of DM, HTN, hyperlipidemia admitted for rule out ACS. He was compliaining of left sided chest pain that is persistent for past 3 days. He states he overate over the weekend which exacerbated his chest pain. He did have cadiac stress stress test in [place] 3-4 years ago which was normal. He stropped taking crestor due to mylagias for a few months. EKG did not reveal any acute ST changes. CXR negative. His troponins x 3 negative. His cbc, bmp unremarkable. He was placed on nitro patch. His chest pain resolved. His lipid panel revealed TG 231, CH 292, LDL 210, HDL 36. He was discharged in stable condition with aspirin 81 mg po qd, continue metoprolol succinate 50 mg QD, nitro s/l prn for chest pain, metformin 1000 bid.. I added pravastatin 20 mg qd which would least likely cause mylagia. He is to establish PCP and script for cardiac stress test given as outpatient. He is also to follow up with our moderate needs teacher Dr. Rogers. He had agreed since he is going to be living her and visiting [place] as needed. - Discharge Data Discharge Date: 11/01/17 Discharge Disposition: Home, Self-Care 01 Condition: Good - Patient Instructions Diet: Heart Healthy Diet, Diabetic Diet Activity: As Tolerated Driving: Do Not Drive Notify Provider of: Fever, Increased Pain, Swelling and Redness, Drainage, Nausea and/or Vomiting - Discharge Plan Prescriptions/Med Rec: Aspirin [Halfprin] 81 mg PO DAILY #30 tab.ec Metoprolol Succinate 50 mg PO DAILY #30 tab.er.24h Nitroglycerin [IJP: Nitroglycerin] 0.4 mg SL Q5M PRN #6 tablet, sublingual PRN Reason: Chest Pain Pravastatin [Pravachol] 20 mg PO BEDTIME #30 tablet Home Medications: Home Meds Losartan Potassium 100 mg PO DAILY 03/28/16 [History] metFORMIN HCl [Metformin HCl] 1 tab PO BID 03/28/16 [History] Aspirin [Halfprin] 81 mg PO DAILY #30 tab.ec 11/01/17 [Rx] Metoprolol Succinate 50 mg PO DAILY #30 tab.er.24h 11/01/17 [Rx] Nitroglycerin [IJP: Nitroglycerin] 0.4 mg SL Q5M PRN #6 tablet, sublingual 11/01 [Rx] Pravastatin [Pravachol] 20 mg PO BEDTIME #30 tablet 11/01/17 [Rx] Patient Handouts: Pravastatin tablets, Metoprolol extended-release tablets, Nonspecific Chest Pain, [id number], Nitroglycerin sublingual tablets, Aspirin , ASA oral tablets Referrals: Jesús Swift DO [Primary Care Provider] - 11/07/17 11:30 am Haim Ramirez MD [Physician] - 11/07/17 3:30 pm - General Info Date of Service: 11/01/17 Functional Status: Reports: Pain Controlled, Tolerating Diet, Ambulating, Urinating - Review of Systems General: Reports: No Symptoms HEENT: Reports: No Symptoms Pulmonary: Reports: No Symptoms Cardiovascular: Reports: No Symptoms Gastrointestinal: Reports: No Symptoms Genitourinary: Reports: No Symptoms Musculoskeletal: Reports: No Symptoms Skin: Reports: No Symptoms Neurological: Reports: No Symptoms Psychiatric: Reports: No Symptoms - Patient Data Vitals - Most Recent: Last Vital Signs Temp 97.3 F 11/01/17 08:00 Pulse 66 11/01/17 09:00 Resp 16 11/01/17 08:00 BP 178/85 H 11/01/17 09:00 Pulse Ox 93 L 11/01/17 09:00 Weight - Most Recent: 133.356 kg I&O - Last 24 hours: Intake & Output 10/31/17 11/01/17 11/01/17 22:59 06:59 14:59 Intake Total 500 Output Total 975 Balance -475 Lab Results - Last 24 hrs: Laboratory Results - last 24 hr 10/31/17 10/31/17 10/31/17 Range/Units 17:14 20:34 20:55 WBC (4.0-11.0) K/uL RBC (4.50-5.90) M/uL Hgb (13.0-17.0) g/dL Hct (38.0-50.0) % MCV (80.0-98.0) fL MCH (27.0-32.0) pg MCHC (31.0-37.0) g/dL RDW Std Deviation (28.0-62.0) fl RDW Coeff of Isael (11.0-15.0) % Plt Count (150-400) K/uL MPV (7.40-12.00) fL Neut % (Auto) (48.0-80.0) % Lymph % (Auto) (16.0-40.0) % Burt % (Auto) (0.0-15.0) % Eos % (Auto) (0.0-7.0) % Baso % (Auto) (0.0-1.5) % Neut # (Auto) (1.4-5.7) K/uL Lymph # (Auto) (0.6-2.4) K/uL Burt # (Auto) (0.0-0.8) K/uL Eos # (Auto) (0.0-0.7) K/uL Baso # (Auto) (0.0-0.1) K/uL Nucleated RBC % /100WBC Nucleated RBCs # K/uL Sodium (136-146) mmol/L Potassium (3.5-5.1) mmol/L Chloride (98-110) mmol/L Carbon Dioxide (21-31) mmol/L BUN (6.0-23.0) mg/dL Creatinine (0.6-1.5) mg/dL Est Cr Clr Drug Dosing mL/min Estimated GFR (MDRD) ml/min Glucose (60-110) mg/dL POC Glucose 101 124 H (60-110) mg/dL Calcium (8.8-10.8) mg/dL Magnesium (1.5-2.3) mEq/L Troponin I 0.14 (0.0-0.29) NG/ML Triglycerides (10-190) mg/dL Cholesterol (131-240) mg/dL LDL Cholesterol, Calc (60-180) mg/dL VLDL Cholesterol (5-55) mg/dL HDL Cholesterol (40-80) mg/dL Cholesterol/HDL Ratio (3.3-6.0) 11/01/17 11/01/17 11/01/17 Range/Units 02:03 02:03 02:03 WBC 10.82 (4.0-11.0) K/uL RBC 4.59 (4.50-5.90) M/uL Hgb 13.7 (13.0-17.0) g/dL Hct 41.1 (38.0-50.0) % MCV 89.5 (80.0-98.0) fL MCH 29.8 (27.0-32.0) pg MCHC 33.3 (31.0-37.0) g/dL RDW Std Deviation 46.1 (28.0-62.0) fl RDW Coeff of Isael 14 (11.0-15.0) % Plt Count 351 (150-400) K/uL MPV 9.60 (7.40-12.00) fL Neut % (Auto) 70.7 (48.0-80.0) % Lymph % (Auto) 18.0 (16.0-40.0) % Burt % (Auto) 8.4 (0.0-15.0) % Eos % (Auto) 2.5 (0.0-7.0) % Baso % (Auto) 0.4 (0.0-1.5) % Neut # (Auto) 7.7 H (1.4-5.7) K/uL Lymph # (Auto) 2.0 (0.6-2.4) K/uL Burt # (Auto) 0.9 H (0.0-0.8) K/uL Eos # (Auto) 0.3 (0.0-0.7) K/uL Baso # (Auto) 0.0 (0.0-0.1) K/uL Nucleated RBC % 0.0 /100WBC Nucleated RBCs # 0 K/uL Sodium 141 (136-146) mmol/L Potassium 3.9 (3.5-5.1) mmol/L Chloride 103 (98-110) mmol/L Carbon Dioxide 28 (21-31) mmol/L BUN 18 (6.0-23.0) mg/dL Creatinine 1.0 (0.6-1.5) mg/dL Est Cr Clr Drug Dosing 71.87 mL/min Estimated GFR (MDRD) > 60.0 ml/min Glucose 139 H (60-110) mg/dL POC Glucose (60-110) mg/dL Calcium 9.6 (8.8-10.8) mg/dL Magnesium 1.7 (1.5-2.3) mEq/L Troponin I 0.12 (0.0-0.29) NG/ML Triglycerides (10-190) mg/dL Cholesterol (131-240) mg/dL LDL Cholesterol, Calc (60-180) mg/dL VLDL Cholesterol (5-55) mg/dL HDL Cholesterol (40-80) mg/dL Cholesterol/HDL Ratio (3.3-6.0) 11/01/17 Range/Units 02:03 WBC (4.0-11.0) K/uL RBC (4.50-5.90) M/uL Hgb (13.0-17.0) g/dL Hct (38.0-50.0) % MCV (80.0-98.0) fL MCH (27.0-32.0) pg MCHC (31.0-37.0) g/dL RDW Std Deviation (28.0-62.0) fl RDW Coeff of Isael (11.0-15.0) % Plt Count (150-400) K/uL MPV (7.40-12.00) fL Neut % (Auto) (48.0-80.0) % Lymph % (Auto) (16.0-40.0) % Burt % (Auto) (0.0-15.0) % Eos % (Auto) (0.0-7.0) % Baso % (Auto) (0.0-1.5) % Neut # (Auto) (1.4-5.7) K/uL Lymph # (Auto) (0.6-2.4) K/uL Burt # (Auto) (0.0-0.8) K/uL Eos # (Auto) (0.0-0.7) K/uL Baso # (Auto) (0.0-0.1) K/uL Nucleated RBC % /100WBC Nucleated RBCs # K/uL Sodium (136-146) mmol/L Potassium (3.5-5.1) mmol/L Chloride (98-110) mmol/L Carbon Dioxide (21-31) mmol/L BUN (6.0-23.0) mg/dL Creatinine (0.6-1.5) mg/dL Est Cr Clr Drug Dosing mL/min Estimated GFR (MDRD) ml/min Glucose (60-110) mg/dL POC Glucose (60-110) mg/dL Calcium (8.8-10.8) mg/dL Magnesium (1.5-2.3) mEq/L Troponin I (0.0-0.29) NG/ML Triglycerides 231 H (10-190) mg/dL Cholesterol 292 H (131-240) mg/dL LDL Cholesterol, Calc 210 H (60-180) mg/dL VLDL Cholesterol 46 (5-55) mg/dL HDL Cholesterol 36 L (40-80) mg/dL Cholesterol/HDL Ratio 8.1 H (3.3-6.0) Med Orders - Current: Current Medications Aspirin (Halfprin) 81 mg PO DAILY [facility] Last Admin: 11/01/17 08:41 Dose: 81 mg Insulin Aspart (Novolog) 0 unit SUBCUT TIDAC [facility] PRN Reason: Protocol Last Admin: 11/01/17 06:47 Dose: Not Given Losartan Potassium (Cozaar) 100 mg PO DAILY [facility] Last Admin: 11/01/17 08:08 Dose: 100 mg Nitroglycerin (Nitrostat) 0.4 mg SL Q5M PRN PRN Reason: Chest Pain Last Admin: 10/31/17 14:06 Dose: 0.4 mg Sodium Chloride (Saline Flush) 10 ml FLUSH ASDIRECTED PRN PRN Reason: Keep Vein Open Last Admin: 10/31/17 14:19 Dose: 10 ml Sodium Chloride (Saline Flush) 2.5 ml FLUSH ASDIRECTED PRN PRN Reason: Keep Vein Open Last Admin: 10/31/17 14:20 Dose: 2.5 ml Discontinued Medications Aspirin (Aspirin) 324 mg PO ONETIME ONE Stop: 10/31/17 13:54 Last Admin: 10/31/17 13:56 Dose: 324 mg Aspirin (Aspirin) Confirm Administered Dose 324 mg .ROUTE .STK-MED ONE Stop: 10/31/17 13:55 Last Admin: 10/31/17 14:06 Dose: Not Given Metoprolol Succinate (Toprol Xl) 50 mg PO ONETIME ONE Stop: 10/31/17 14:53 Last Admin: 10/31/17 15:23 Dose: 50 mg Metoprolol Succinate (Toprol Xl) 25 mg PO DAILY [facility] Nitroglycerin (Nitrostat) Confirm Administered Dose 0.4 mg .ROUTE .STK-MED ONE Stop: 10/31/17 13:56 Last Admin: 10/31/17 14:07 Dose: Not Given - Exam General: Reports: Alert, Oriented HEENT: Reports: Pupils Equal, EOMI Neck: Reports: Supple, Trachea Midline Lungs: Reports: Clear to Auscultation, Normal Respiratory Effort Cardiovascular: Reports: Regular Rate, Regular Rhythm GI/Abdominal Exam: Normal Bowel Sounds, Soft Back Exam: Reports: Normal Inspection, Full Range of Motion Extremities: Normal Inspection Skin: Reports: Warm, Dry, Intact Neurological: Reports: No New Focal Deficit Psy/Mental Status: Reports: Alert, Normal Affect, Normal Mood *Q Meaningful Use (DIS) - VTE *Q VTE Criteria *Q: - Stroke *Q Stroke Criteria *Q: - AMI *Q AMI Criteria *Q: <Carlos Guevara - Last Filed: 11/07/17 16:29> - Patient Data Vitals - Most Recent: Last Vital Signs Temp 36.3 C 11/01/17 08:00 Pulse 66 11/01/17 09:00 Resp 16 11/01/17 08:00 BP 178/85 H 11/01/17 09:00 Pulse Ox 93 L 11/01/17 09:00 Med Orders - Current: Current Medications Discontinued Medications Aspirin (Aspirin) 324 mg PO ONETIME ONE Stop: 10/31/17 13:54 Last Admin: 10/31/17 13:56 Dose: 324 mg Aspirin (Aspirin) Confirm Administered Dose 324 mg .ROUTE .STK-MED ONE Stop: 10/31/17 13:55 Last Admin: 10/31/17 14:06 Dose: Not Given Aspirin (Halfprin) 81 mg PO DAILY [facility] Last Admin: 11/01/17 08:41 Dose: 81 mg Insulin Aspart (Novolog) 0 unit SUBCUT TIDAC [facility] PRN Reason: Protocol Last Admin: 11/01/17 06:47 Dose: Not Given Losartan Potassium (Cozaar) 100 mg PO DAILY [facility] Last Admin: 11/01/17 08:08 Dose: 100 mg Metoprolol Succinate (Toprol Xl) 50 mg PO ONETIME ONE Stop: 10/31/17 14:53 Last Admin: 10/31/17 15:23 Dose: 50 mg Metoprolol Succinate (Toprol Xl) 25 mg PO DAILY [facility] Nitroglycerin (Nitrostat) 0.4 mg SL Q5M PRN PRN Reason: Chest Pain Last Admin: 10/31/17 14:06 Dose: 0.4 mg Nitroglycerin (Nitrostat) Confirm Administered Dose 0.4 mg .ROUTE .STK-MED ONE Stop: 10/31/17 13:56 Last Admin: 10/31/17 14:07 Dose: Not Given Sodium Chloride (Saline Flush) 10 ml FLUSH ASDIRECTED PRN PRN Reason: Keep Vein Open Last Admin: 10/31/17 14:19 Dose: 10 ml Sodium Chloride (Saline Flush) 2.5 ml FLUSH ASDIRECTED PRN PRN Reason: Keep Vein Open Last Admin: 10/31/17 14:20 Dose: 2.5 ml *Q Meaningful Use (DIS) - VTE *Q VTE Criteria *Q: - Stroke *Q Stroke Criteria *Q: - AMI *Q AMI Criteria *Q: - Free Text/Narrative Note: I have examined the patient. I have discussed treatment plan with the resident. I agree with the assessment and plan in the following resident's note.
== END 2017-11-01 12:45 | disposition home or self-care (01) ==
LOC: MW.ED 13:38 → MW.MS 15:13
PROVIDERS: ADMIT Internal Medicine; ATTEND Internal Medicine
DX: R07.9 Chest pain, unspecified (principal); E11.9 Type 2 diabetes mellitus without complications; I10 Essential (primary) hypertension; Z79.899 Other long term (current) drug therapy; Z79.84 Long term (current) use of oral hypoglycemic drugs; Z79.82 Long term (current) use of aspirin
CPT/HCPCS: 36415; 71010; 80048; 80053; 80061; 82962; 83735; 84484; 85025; 93005; 99285; A9270; G0378

== ENCOUNTER 2017-12-09 05:39 | Observation (INO) | payer MEDICARE, OTHER ==
[2017-12-09] MEDS ORDERED: Morphine 2 MG/ML Syringe IVPUSH ONE (05:57)
[2017-12-09] MEDS ORDERED: Pantoprazole 40 MG Vial IVPUSH ONE (05:57)
[2017-12-09] MEDS ORDERED: Ondansetron 4 MG/2 ML SDV IVPUSH ONE (05:57)
[2017-12-09] MEDS ORDERED: Sodium Chloride 0.9% 1,000 ML IV ONE (06:00)
[2017-12-09 06:46] LABS: CHLORIDE,CL 106 mmol/L (98-110); SODIUM,NA 137 mmol/L (136-146)
--- NOTE | 2017-12-09 07:57 | EDM.PDOC ---
ED HPI GENERAL MEDICAL PROBLEM - General Chief Complaint: Abdominal Pain Stated Complaint: THROWING UP BLOOD Time Seen by Provider: 12/09/17 07:57 Source of Information: Reports: Patient - History of Present Illness INITIAL COMMENTS - FREE TEXT/NARRATIVE: HISTORY AND PHYSICAL: History of present illness: [Patient presents with right lower quadrant pain which began last night as well as some episodic vomiting, is concerned as there appeared to be blood in his vomitus as well as his urine He rates pain 3 out of 10 at current this had some morphine 2 mg which is controlled pain He does continue to complain of some mild nausea but has not vomited here in the emergency room no fever chills sweats no chest pain shortness breath headache dizziness or palpitation no bowel symptoms ] Review of systems: As per history of present illness and below otherwise all systems reviewed and negative. Past medical history: As per history of present illness and as reviewed below otherwise noncontributory. Surgical history: As per history of present illness and as reviewed below otherwise noncontributory. Social history: No reported history of drug or alcohol abuse. Family history: As per history of present illness and as reviewed below otherwise noncontributory. Physical exam: HEENT: Atraumatic, normocephalic, pupils reactive, negative for conjunctival pallor or scleral icterus, mucous membranes moist, throat clear, neck supple, nontender, trachea midline. Lungs: Clear to auscultation, breath sounds equal bilaterally, chest nontender. Heart: S1S2, regular, negative for clicks, rubs, or JVD. Abdomen: Soft, nondistended, tender in the right lower quadrant no guarding or rebound. Negative for masses or hepatosplenomegaly. Negative for costovertebral tenderness. Pelvis: Stable nontender. Genitourinary: Deferred. Rectal: Deferred. Extremities: Atraumatic, negative for cords or calf pain. Neurovascular unremarkable. Neuro: Awake, alert, oriented. Cranial nerves II through XII unremarkable. Cerebellum unremarkable. Motor and sensory unremarkable throughout. Exam nonfocal. Diagnostics: [CBC CMP UA with culture blood cultures 2 CT abdomen pelvis Chest 1 view ] Therapeutics: [Tobramycin [address] Morgan Morphine 2 mg IV Zofran 8 mg IV Normal saline bolus Normal saline to run at 125 Flomax Solu-Medrol ] Impression: [3 mm stone right UVJ UTI Chronic history of baseline] Definitive disposition and diagnosis as appropriate pending reevaluation and review of above. Abdomen Pain Score (Numeric/FACES): 5 - Related Data Allergies Allergy/AdvReac Type Severity Reaction Status Date / Time No Known Allergies Allergy Verified 12/09/17 05:52 Home Meds: Home Meds Losartan Potassium 100 mg PO DAILY 03/28/16 [History] metFORMIN HCl [Metformin HCl] 1 tab PO BID 03/28/16 [History] Aspirin [Halfprin] 81 mg PO DAILY #30 tab.ec 11/01/17 [Rx] Metoprolol Succinate 50 mg PO DAILY #30 tab.er.24h 11/01/17 [Rx] Nitroglycerin [IJP: Nitroglycerin] 0.4 mg SL Q5M PRN #6 tablet, sublingual 11/01 [Rx] Pravastatin [Pravachol] 20 mg PO BEDTIME #30 tablet 11/01/17 [Rx] Carvedilol [Coreg] 6.25 mg PO BID 12/09/17 [History] Diltiazem HCl [Cartia Xt] 120 mg PO DAILY 12/09/17 [History] LORazepam 1 mg PO Q6HR PRN 12/09/17 [History] Ticagrelor [Brilinta] 90 mg PO BID 12/09/17 [History] Past Medical History - Past Health History Medical/Surgical History: Denies Medical/Surgical History HEENT History: Reports: Impaired Vision Cardiovascular History: Reports: Hypertension, Stents Respiratory History: Reports: None Gastrointestinal History: Reports: None Genitourinary History: Reports: Prostate Disorder Musculoskeletal History: Reports: None Neurological History: Reports: None Psychiatric History: Reports: Anxiety Endocrine/Metabolic History: Reports: Diabetes, Type II Hematologic History: Reports: None Immunologic History: Reports: None Oncologic (Cancer) History: Reports: Prostate Dermatologic History: Reports: None - Infectious Disease History Infectious Disease History: Reports: Chicken Pox, Measles, Mumps - Past Surgical History Cardiovascular Surgical History: Reports: None Male Surgical History: Reports: Prostatectomy Social & Family History - Family History Family Medical History: Noncontributory Cardiac: Reports: Hypertension Endocrine/Metabolic: Reports: Diabetes, type II - Tobacco Use Smoking Status *Q: Never Smoker Second Hand Smoke Exposure: No - Caffeine Use Caffeine Use: Reports: None Caffeine Use Comment: 2 cups daily - Alcohol Use Days Per Week of Alcohol Use: 0 - Recreational Drug Use Recreational Drug Use: No ED ROS GENERAL - Review of Systems Review Of Systems: ROS reveals no pertinent complaints other than HPI. ED EXAM, GENERAL - Physical Exam Exam: See Below Course - Vital Signs Last Recorded V/S: Last Vital Signs Temp 96.8 F 12/09/17 05:52 Pulse 53 L 12/09/17 05:52 Resp 18 12/09/17 05:52 BP 138/51 L 12/09/17 05:52 Pulse Ox 96 12/09/17 05:52 - Orders/Labs/Meds Orders: Active Orders 24 hr Category Date Time Status EKG Documentation Completion [RC] STAT Care 12/09/17 05:57 Active Abdomen Pelvis wo Cont [CT] Stat Exams 12/09/17 05:57 Taken Chest 1V Frontal [CR] Stat Exams 12/09/17 05:57 Taken CULTURE BLOOD [BC] Stat Lab 12/09/17 07:51 Ordered CULTURE BLOOD [BC] Stat Lab 12/09/17 07:51 Ordered CULTURE URINE [RM] Stat Lab 12/09/17 07:55 Uncollected Sodium Chloride 0.9% [Normal Saline] 1,000 ml Med 12/09/17 06:00 Active IV STAT Tobramycin [Nebcin] 120 mg Med 12/09/17 07:55 Ordered Sodium Chloride 0.9% [Normal Saline] 100 ml IV NOW Blood Culture x2 Reflex Set [OM.PC] Stat Oth 12/09/17 07:51 Ordered Medication Orders Sodium Chloride (Normal Saline) 1,000 mls @ 125 mls/hr IV STAT ONE Stop: 12/09/17 13:59 Last Admin: 12/09/17 06:16 Dose: 125 mls/hr Tobramycin 120 mg/ Sodium (Chloride) 103 mls @ 103 mls/hr IV NOW STA Stop: 12/09/17 07:56 Labs: Laboratory Tests 12/09/17 12/09/17 12/09/17 Range/Units 06:00 06:18 06:18 WBC 16.69 H (4.0-11.0) K/uL RBC 4.61 (4.50-5.90) M/uL Hgb 13.5 (13.0-17.0) g/dL Hct 40.3 (38.0-50.0) % MCV 87.4 (80.0-98.0) fL MCH 29.3 (27.0-32.0) pg MCHC 33.5 (31.0-37.0) g/dL RDW Std Deviation 43.9 (28.0-62.0) fl RDW Coeff of Isael 14 (11.0-15.0) % Plt Count 351 (150-400) K/uL MPV 9.50 (7.40-12.00) fL Neut % (Auto) 89.2 H (48.0-80.0) % Lymph % (Auto) 5.3 L (16.0-40.0) % [place] % (Auto) 4.6 (0.0-15.0) % Eos % (Auto) 0.7 (0.0-7.0) % Baso % (Auto) 0.2 (0.0-1.5) % Neut # (Auto) 14.9 H (1.4-5.7) K/uL Lymph # (Auto) 0.9 (0.6-2.4) K/uL [facility] # (Auto) 0.8 (0.0-0.8) K/uL Eos # (Auto) 0.1 (0.0-0.7) K/uL Baso # (Auto) 0.0 (0.0-0.1) K/uL Nucleated RBC % 0.0 /100WBC Nucleated RBCs # 0 K/uL INR (0.86-1.11) Sodium 137 (136-146) mmol/L Potassium 4.3 (3.5-5.1) mmol/L Chloride 106 (98-110) mmol/L Carbon Dioxide 20 L (21-31) mmol/L BUN 18 (6.0-23.0) mg/dL Creatinine 1.1 (0.6-1.5) mg/dL Est Cr Clr Drug Dosing 65.60 mL/min Estimated GFR (MDRD) > 60.0 ml/min Glucose 149 H (60-110) mg/dL Calcium 10.0 (8.8-10.8) mg/dL Total Bilirubin 0.4 (0.1-1.5) mg/dL AST 18 (5-40) IU/L ALT 20 (8-54) IU/L Alkaline Phosphatase 44 (40-150) CK-MB (CK-2) 1.9 (0-6.6) ng/ml Troponin I < 0.10 (0.0-0.29) NG/ML Total Protein 6.9 (6.0-8.0) g/dL Albumin 4.1 (3.4-4.8) g/dL Globulin 2.8 (2.0-3.5) g/dL Albumin/Globulin Ratio 1.5 (1.3-2.8) Urine Color YELLOW Urine Appearance SLT CLOUDY Urine pH 6.0 (5.0-8.0) Ur Specific [place] >= 1.030 (1.001-1.035) Urine Protein 100 (NEGATIVE) mg/dL Urine Glucose (UA) NEGATIVE (NEGATIVE) mg/dL Urine Ketones NEGATIVE (NEGATIVE) mg/dL Urine Occult Blood LARGE H (NEGATIVE) Urine Nitrite POSITIVE H (NEGATIVE) Urine Bilirubin NEGATIVE (NEGATIVE) Urine Urobilinogen 0.2 (<2.0) EU/dL Ur Leukocyte Esterase SMALL (NEGATIVE) Urine RBC 20-35 (0-2/HPF) Urine WBC 50-80 (0-5/HPF) Ur Epithelial Cells NOT SEEN (NONE-FEW) Amorphous Sediment FEW (NEGATIVE) Urine Bacteria 3+ H (NEGATIVE) Urine Mucus RARE (NONE-MOD) Blood Type Antibody Screen 12/09/17 12/09/17 Range/Units 06:29 06:29 WBC (4.0-11.0) K/uL RBC (4.50-5.90) M/uL Hgb (13.0-17.0) g/dL Hct (38.0-50.0) % MCV (80.0-98.0) fL MCH (27.0-32.0) pg MCHC (31.0-37.0) g/dL RDW Std Deviation (28.0-62.0) fl RDW Coeff of Isael (11.0-15.0) % Plt Count (150-400) K/uL MPV (7.40-12.00) fL Neut % (Auto) (48.0-80.0) % Lymph % (Auto) (16.0-40.0) % [place] % (Auto) (0.0-15.0) % Eos % (Auto) (0.0-7.0) % Baso % (Auto) (0.0-1.5) % Neut # (Auto) (1.4-5.7) K/uL Lymph # (Auto) (0.6-2.4) K/uL [facility] # (Auto) (0.0-0.8) K/uL Eos # (Auto) (0.0-0.7) K/uL Baso # (Auto) (0.0-0.1) K/uL Nucleated RBC % /100WBC Nucleated RBCs # K/uL INR 0.99 (0.86-1.11) Sodium (136-146) mmol/L Potassium (3.5-5.1) mmol/L Chloride (98-110) mmol/L Carbon Dioxide (21-31) mmol/L BUN (6.0-23.0) mg/dL Creatinine (0.6-1.5) mg/dL Est Cr Clr Drug Dosing mL/min Estimated GFR (MDRD) ml/min Glucose (60-110) mg/dL Calcium (8.8-10.8) mg/dL Total Bilirubin (0.1-1.5) mg/dL AST (5-40) IU/L ALT (8-54) IU/L Alkaline Phosphatase (40-150) CK-MB (CK-2) (0-6.6) ng/ml Troponin I (0.0-0.29) NG/ML Total Protein (6.0-8.0) g/dL Albumin (3.4-4.8) g/dL Globulin (2.0-3.5) g/dL Albumin/Globulin Ratio (1.3-2.8) Urine Color Urine Appearance Urine pH (5.0-8.0) Ur Specific [place] (1.001-1.035) Urine Protein (NEGATIVE) mg/dL Urine Glucose (UA) (NEGATIVE) mg/dL Urine Ketones (NEGATIVE) mg/dL Urine Occult Blood (NEGATIVE) Urine Nitrite (NEGATIVE) Urine Bilirubin (NEGATIVE) Urine Urobilinogen (<2.0) EU/dL Ur Leukocyte Esterase (NEGATIVE) Urine RBC (0-2/HPF) Urine WBC (0-5/HPF) Ur Epithelial Cells (NONE-FEW) Amorphous Sediment (NEGATIVE) Urine Bacteria (NEGATIVE) Urine Mucus (NONE-MOD) Blood Type A POSITIVE Antibody Screen NEGATIVE Meds: Medications Generic Name Dose Route Start Last Admin Trade Name Jono PRN Reason Stop Dose Admin Sodium Chloride 1,000 mls @ 125 mls/hr 12/09/17 06:00 12/09/17 06:16 Normal Saline IV 12/09/17 13:59 125 mls/hr STAT ONE Administration Tobramycin 120 mg/ Sodium 103 mls @ 103 mls/hr 12/09/17 07:55 Chloride IV 12/09/17 07:56 NOW STA Discontinued Medications Generic Name Dose Route Start Last Admin Trade Name Jono PRN Reason Stop Dose Admin Morphine Sulfate 2 mg 12/09/17 05:57 12/09/17 06:27 Morphine IVPUSH 12/09/17 05:58 2 mg ONETIME ONE Administration Ondansetron HCl 4 mg 12/09/17 05:57 12/09/17 06:25 Zofran IVPUSH 12/09/17 05:58 4 mg ONETIME ONE Administration Pantoprazole Sodium 80 mg 12/09/17 05:57 12/09/17 06:29 Protonix Iv IVPUSH 12/09/17 05:58 80 mg NOW ONE Administration Departure - Departure Time of Disposition: 08:01 Disposition: Refer to Observation Condition: Fair Clinical Impression: Ureteral stone, UTI (urinary tract infection) - Discharge Information Referrals: Haim Ramirez MD [Primary Care Provider] - Forms: ED Department Discharge - My Orders Last 24 Hours: My Active Orders 12/09/17 07:51 CULTURE BLOOD [BC] Stat CULTURE BLOOD [BC] Stat Blood Culture x2 Reflex Set [OM.PC] Stat 12/09/17 07:55 CULTURE URINE [RM] Stat Tobramycin [Nebcin] 120 mg Sodium Chloride 0.9% [Normal Saline] 100 ml IV NOW - Assessment/Plan Last 24 Hours: My Active Orders 12/09/17 07:51 CULTURE BLOOD [BC] Stat CULTURE BLOOD [BC] Stat Blood Culture x2 Reflex Set [OM.PC] Stat 12/09/17 07:55 CULTURE URINE [RM] Stat Tobramycin [Nebcin] 120 mg Sodium Chloride 0.9% [Normal Saline] 100 ml IV NOW
[2017-12-09] MEDS ORDERED: methylPREDNISolone Sodium Succinate 125 MG/2 ML SDV IVPUSH ONE (08:09)
[2017-12-09] MEDS ORDERED: Tamsulosin 0.4 MG Cap.ER PO SCH (08:30)
--- NOTE | 2017-12-09 10:50 | HP ---
DATE OF : 1945 PRIMARY CARE PHYSICIAN: WESLEY SALDIVAR MD HISTORY OF PRESENT ILLNESS: A 72-year-old presented to the emergency room earlier today with sudden onset of right flank pain yesterday. He was also having blood in his urine. Denies any fever or chills. He had a UA that was strongly suggestive of UTI. His white blood count was 16,000. His KUB was not helpful because of his size. His CT scan showed an obstructed right kidney and right ureter all the way down to the bladder. The clips from a previous prostate surgery were helpful as they scatter from the os, but in the way of being able to visualize the UVJ, but the radiologist believes there are 2 to 3 mm stones at the right UVJ. PAST MEDICAL HISTORY: Significant the patient had a cardiac stent placed 30 days ago. He is currently on Brilinta, which he took his last dose last night. He also complained that he did pass blood in his urine last night and he thought he also vomited blood. PAST SURGICAL HISTORY: Significant for having had radical prostatectomy 20 some years ago. PHYSICAL EXAMINATION: GENERAL: He is alert. He is oriented. He does not appear to be in pain. He had morphine earlier in the ER approximately 3 or 3-1/2 hours ago. HEART: Normal sinus rhythm. LUNGS: Clear. ABDOMEN: Obese. Lower midline incision. PLAN: Since he is not having any pain now and along with that the added base of information is that he thought he might have passed something earlier today when he passed his urine, even though the urine was not collected or strained. I am going to get another CT scan and a KUB to see if I can see the stones. That way, we can avoid operating on him. If he still has the obstruction, then I have a choice between treating his infection and see if he can pass the stones provided that he does not get septic or taken to the operating room to take the stones out. I will wait for the results of the CT scan to decide what my next step is. That was all explained to the patient. I am not sure how much of it he retained. AZAM / CHRIS /[id number] GLENDA
[2017-12-09] MEDS ORDERED: cefTRIAXone 2 GM in Premix Bag 1 BAG IV SCH (11:30)
[2017-12-09] MEDS ORDERED: ceFAZolin 1 GM in Premix Bag 1 BAG IV SCH (11:30)
[2017-12-09] MEDS ORDERED: Lactated Ringers 1,000 ML IV SCH (11:30)
[2017-12-09] MEDS ORDERED: Nitroglycerin 0.4 MG Tab.SL SL PRN (11:33)
[2017-12-09] MEDS ORDERED: LORazepam 1 MG Tab PO PRN (11:33)
[2017-12-09] MEDS ORDERED: Losartan 50 MG Tab PO SCH (11:45)
[2017-12-09] MEDS ORDERED: Carvedilol 6.25 MG Tab PO SCH (11:45)
[2017-12-09] MEDS ORDERED: Metoprolol Succinate 50 MG Tab.ER PO SCH (11:45)
[2017-12-09] MEDS ORDERED: Diltiazem 120 MG Cap.CD PO SCH (11:45)
[2017-12-09] MEDS ORDERED: Aspirin 81 MG Tab.EC PO SCH (11:45)
[2017-12-09 14:04] VITALS: BP 149/75
[2017-12-09] MEDS ORDERED: Lidocaine 1% 50 ML MDV ONE (15:04)
[2017-12-09] MEDS ORDERED: Bupivacaine 0.5% 30 ML SDV ONE (15:04)
[2017-12-09] MEDS ORDERED: Midazolam 1 MG/ML 2 ML SDV ONE (15:08)
[2017-12-09] MEDS ORDERED: metFORMIN 500 MG Tab PO SCH (17:00)
[2017-12-09] MEDS ORDERED: Pravastatin 40 MG Tab PO SCH (21:00)
--- NOTE | 2017-12-09 22:11 | OR ---
SURGEON: Abdulkadir Jones M.D. DATE OF PROCEDURE: 12/09/2017 PREOPERATIVE DIAGNOSIS: Right lower ureteral stone with obstruction. POSTOPERATIVE DIAGNOSIS: Right lower ureteral stone with obstruction. HISTORY: A 72-year-old, he came to the emergency room this morning with right flank pain, was found to have a UA that was strongly suggestive of UTI. A white blood count was 16,000 and an obstructive 3 mm stone in the right lower ureter with hydroureter and hydronephrosis. His complicating factors are many, one is he is on anticoagulation for a recent cardiac stent that was put in approximately a month ago. He is on Brilinta. He is on 90 mg twice a day. He is diabetic. He is hypertensive. He has a history of cardiac problems. He had a previous radical prostatectomy and he has a penile implant. Because of the anticoagulation and the recent stent, Anesthesia has determined that it would not be safe to give him general anesthesia, so I decided because of the risk of infection and the potential risk of sepsis to take him to the operating room after he was given both Rocephin and tobramycin and put a double-J stent in under local anesthesia, i.e., without actually any anesthesia or IV sedation. DESCRIPTION OF PROCEDURE: The patient was placed in dorsal lithotomy position. His vital signs were normal. He was alert. Ureteroscopy was done using the 26-[place] cystoscope, but I was not able to get the guidewire inside and up using the rigid ureteroscope to get closer to the ureteral orifice, I was able to advance a curved tip laser guide over which a 6-[place] 26 centimeter double-J stent was placed. The position was confirmed on fluoroscopy on both the proximal and the distal ends. He tolerated that well and was moved back to his room in good and stable condition. AZAM / CHRIS /[id number]
--- NOTE | 2017-12-09 23:35 | DISCH ---
DATE OF DISCHARGE: 12/09/2017 PRIMARY CARE PHYSICIAN: WESLEY SALDIVAR MD ADMISSION DIAGNOSES: He was admitted to the hospital earlier today with 1. Right flank pain. 2. Urinary tract infection. 3. Obstructive stone. HOSPITAL COURSE: He was started on tobramycin and Rocephin. He was taken to the operating room. Under local anesthesia, I placed a double-J stent in the right ureter. Upper end was in the renal pelvis and the lower end was in the bladder. Details of the operative report are separate. The patient tolerated that well. DISCHARGE MEDICATIONS: He was sent home on Cipro 500 twice a day for ten days. FOLLOWUP: I will see him again in my office in two weeks. AZAM / CHRIS /[id number]
[2017-12-10] MEDS ORDERED: BRILINTA 90 MG PO SCH (09:00)
--- NOTE | 2017-12-11 09:39 | CR ---
EXAMINATION: Pelvis HISTORY: Surgery COMPARISON: 12/09/2017 TECHNIQUE: Single view FINDINGS/IMPRESSION: There is an partially visualized right collecting system stent noted. Clips proj ect over the right aspect of the pelvis.
--- NOTE | 2017-12-11 17:01 | CR ---
EXAM DATE: 12/09/17 PATIENT'S AGE: 72 Patient: MISHA MAHAN Facility: [place], [place] Site . Site : 1945 Study: XRay Chest [id number]/20/2018 7:03:21 AM Ordering Physician: Doctor Hill Final Report: INDICATION: Cough. Hemoptysis. TECHNIQUE: Chest 1 view. COMPARISON: None FINDINGS: Cardiovascular and mediastinum: Heart size and vasculature are normal in caliber and appearance. Mediastinum is within normal limits. Lungs and pleural space: Minimal bibasilar atelectasis. No consolidation. No edema. No lung mass. No pleural effusion. No pneumothorax. Bones and soft tissues: No acute findings. IMPRESSION: Minimal bibasilar atelectasis. Dictated by Dima Demarco MD @ 12/09/2017 7:37:37 AM Dictated by: Dima Demarco MD @ 12/09/2017 07:37:43 (Electronic Signature) Report Signed by Proxy. GLENDA
--- NOTE | 2017-12-11 17:02 | CT ---
EXAM DATE: 12/09/17 PATIENT'S AGE: 72 Patient: MISHA MAHAN Facility: [place], [place] Site . Site : 1945 Study: CT Abdomen/Pelvis [id number]/20/2018 7:04:02 AM Ordering Physician: Doctor Hill Final Report: INDICATION: Generalized abdominal pain. TECHNIQUE: CT abdomen and pelvis without contrast. COMPARISON: None FINDINGS: Lower chest: No significant abnormality. Liver: Unremarkable. Spleen: Unremarkable. Pancreas: Unremarkable. Gallbladder and bile ducts: Unremarkable. Kidneys: No left renal lesion. No left hydronephrosis. No left-sided calculus. No focal right renal lesion. 5 mm calculus in the midpole of the right kidney. There are approximately 3 adjacent 2 mm calculi in the lower pole. There is moderate right hydroureter and mild right hydronephrosis. Evaluation of the distal right ureter is limited by streak artifact from prostatectomy clips. However there do appear to be 2 adjacent 3 mm calculi at the right ureterovesical junction. Adrenal glands: Bilateral adrenal thickening without suspicious lesion. GI tract: Tiny hiatal hernia. Appendix is normal. There is colonic diverticulosis without evidence of diverticulitis. Small bowel appears normal. Vascular structures: No abdominal aortic aneurysm. Lymph nodes: Unremarkable. Miscellaneous: No free air or ascites. Pelvic Organs: Sequelae of prostatectomy noted. No bladder wall thickening. Penile prosthesis noted with reservoir in the left lateral lower abdominal wall. Bones: No acute abnormality. No suspicious bone lesion. There are degenerative changes in the visualized spine. IMPRESSION: 1. Mild right hydronephrosis and moderate right hydroureter. Evaluation of the distal right ureter is limited by streak artifact from prostatectomy clips. However, there do appear to be 2 adjacent 3 mm calculi at the right uterovesical junction. 2. Right nephrolithiasis. 3. Colonic diverticulosis. Dictated by Dima Demarco MD @ 12/09/2017 7:48:08 AM Dictated by: Dima Demarco MD @ 12/09/2017 07:48:20 (Electronic Signature) Report Signed by Proxy. GLENDA
--- NOTE | 2017-12-11 17:13 | CT ---
EXAM DATE: 12/09/17 PATIENT'S AGE: 72 Patient: MISHA MAHAN Facility: [place], [place] Site . Site : 1945 Study: CT Abdomen/Pelvis [id number]/20/2018 10:48:37 AM Ordering Physician: Robert Panchal Final Report: INDICATION: Follow up renal calculus. Presumed passage of a renal calculus. TECHNIQUE: CT scan of the abdomen and pelvis without contrast. COMPARISON: Same date. Previous CT scan performed at 6:51 a.m.. FINDINGS: Again noted is hydronephrosis of the right kidney and a right hydroureter. The hydronephrosis has definitely decreased. It is difficult to visualize the distal segment of the pelvic ureter, due to extensive metallic streak artifact. The left kidney and ureter show no change. Stable appearance of the remaining abdomen and pelvis. A reservoir for an artificial penile prosthesis is noted in the left lower quadrant. Prostatectomy with multiple metallic clips pelvic sidewall. IMPRESSION: There has been interval decompression of previous right hydronephrosis suggesting relief of an obstruction. A discrete stone however it is difficult to visualize but it may be difficult to have noted a distal right ureteral stone due to the extensive amount of streak artifact present in the pelvis. There has also been a subtle decrease in the degree of perinephric edema. Stable nonobstructing stones at the lower pole and mid right kidney with no other significant change. Please note that all CT scans at this facility use dose modulation, iterative reconstruction, and/or weight-based dosing when appropriate to reduce radiation dose to as low as reasonably achievable. Dictated by Emerson Salgado MD @ Dec 09 2017 11:24AM (Electronic Signature) Report Signed by Proxy. [facility]
--- NOTE | 2017-12-11 17:14 | CR ---
EXAM DATE: 12/09/17 PATIENT'S AGE: 72 Patient: MISHA MAHAN Facility: [place], [place] Site . Site : 1945 Study: XRay Abdomen/Pelvis [id number]/20/2018 10:58:56 AM Ordering Physician: Robert Panchal Final Report: INDICATION: Kidney stone. Technique. KUB. COMPARISON: CT scan same day. IMPRESSION: No definite ureteral calculus is seen. Multiple surgical clips in the pelvis from prostatectomy as well as a penile prosthesis/penile appliance. The bowel gas pattern is nonobstructive. Small calcifications are present in the lower pole of the right kidney. Dictated by Emerson Salgado MD @ Dec 09 2017 11:12AM (Electronic Signature) Report Signed by Proxy. GLENDA
== END 2017-12-09 17:28 | disposition home or self-care (01) ==
LOC: MW.ED 05:39 → MW.MS 08:13
PROVIDERS: ADMIT Urology; ATTEND Urology
DX: N13.6 Pyonephrosis (principal); E11.9 Type 2 diabetes mellitus without complications; I10 Essential (primary) hypertension; F41.9 Anxiety disorder, unspecified; Z90.79 Acquired absence of other genital organ(s); Z96.89 Presence of other specified functional implants; Z79.899 Other long term (current) drug therapy; Z79.84 Long term (current) use of oral hypoglycemic drugs; Z79.82 Long term (current) use of aspirin; Z95.5 Presence of coronary angioplasty implant and graft
CPT/HCPCS: 36415; 52332; 71045; 74018; 74176; 76000; 80053; 81001; 82553; 82962; 84484; 85025; 85610; 86850; 86900; 86901; 87040; 87086; 87804; 93005; 96361; 96365; 96375; 99285; A9270; C1769; C2625; C9113; J0696; J2270; J2405; J2930; J3260; J7030; J7040; J7050; J7120; 87088; 87186; 99284; J2250

== ENCOUNTER 2017-12-25 17:38 | Emergency (ER) | payer MEDICARE, OTHER ==
--- NOTE | 2017-12-25 17:54 | EDM.PDOC ---
ED HPI GENERAL MEDICAL PROBLEM - General Stated Complaint: UNABLE TO URINE Time Seen by Provider: 12/25/17 17:44 - History of Present Illness INITIAL COMMENTS - FREE TEXT/NARRATIVE: HISTORY AND PHYSICAL: History of present illness: The patient is a 72-year-old male with a history of a ureteral stone on the right and a stent placed on December 09 and he was recently seen at Dr. Jones's office earlier today to have the stent removed. The patient tells me that he passed urine prior to having the stent removed at 2:30 PM and since that time he feels the urge to urinate but he cannot get much urine out. He has only some dribbles. Patient says he has had some bleeding from his penis and a scant amount which she was told by Dr. Jones will be normal and he has had no testicular pain or swelling. The patient has a history of a penile implant and has had no fever chills nausea vomiting or flank pain. The patient is most concerned because he says if he drinks water he usually has to go and urinate frequently and he has not passed any urine since 2:30p. The patient has a history of a prostatectomy. The patient was given a prescription for Cipro after he was seen in the doctor's office today which he has filled and has not started yet Patient is currently on Brillenta for anticoagulation therapy. The patient does tell me that when Dr. Morgan removed the stent he did have to use a special forceps ankle up into the penis through the urethra. He was told that he might pass some blood Review of systems: As per history of present illness and below otherwise all systems reviewed and negative. Past medical history: As per history of present illness and as reviewed below otherwise noncontributory. Surgical history: As per history of present illness and as reviewed below otherwise noncontributory. Social history: No reported history of drug or alcohol abuse. Family history: As per history of present illness and as reviewed below otherwise noncontributory. Physical exam: Gen.: Well-developed well-nourished overweight male who is nontoxic and in good that the ED without distress. HEENT: Atraumatic, normocephalic, negative for conjunctival pallor or scleral icterus, mucous membranes moist, throat clear, neck supple, nontender, trachea midline. Lungs: Clear to auscultation, breath sounds equal bilaterally, chest nontender. Heart: S1S2, regular rate and rhythm no overt murmurs. Abdomen: Soft, nondistended, nontender. There is a well-healed infra-abdominal midline scar seen Negative for masses or hepatosplenomegaly. Negative for costovertebral tenderness. Pelvis: Stable nontender. Genitourinary: Testicles are descended bilaterally and there is no overt swelling or masses in the perineal area. There is a penile implant stated and there is scant blood seen at the underwear but no chela bleeding from the urethral meatus Rectal: Deferred. Extremities: Atraumatic, negative for cords or calf pain. Neurovascular unremarkable. Neuro: Awake, alert, oriented. Cranial nerves II through XII unremarkable. Cerebellum unremarkable. Motor and sensory unremarkable throughout. Exam nonfocal. Diagnostics: ,bladder scan Therapeutics: [] Bladder scan revealed only 127 mL of urine. I reassured the patient that he does not need a Phelps catheter and that he can continue to monitor his urine and follow-up with Dr. Morgan or return here if there are problems. I've notified Dr. Morgan of this evaluation and test results at 6:17 PM. He agrees with no further workup at this time and he can see the patient in his clinic Impression: Feeling of urinary retention status post stent removal stable/bladder evaluation Definitive disposition and diagnosis as appropriate pending reevaluation and review of above. - Related Data Allergies Allergy/AdvReac Type Severity Reaction Status Date / Time No Known Allergies Allergy Verified 12/25/17 18:16 Home Meds: Home Meds Losartan Potassium 100 mg PO DAILY 03/28/16 [History] metFORMIN HCl [Metformin HCl] 1,000 mg PO BIDMEALS 03/28/16 [History] Aspirin [Halfprin] 81 mg PO DAILY #30 tab.ec 11/01/17 [Rx] Metoprolol Succinate 50 mg PO DAILY #30 tab.er.24h 11/01/17 [Rx] Nitroglycerin [IJP: Nitroglycerin] 0.4 mg SL Q5M PRN #6 tablet, sublingual 11/01 [Rx] Pravastatin [Pravachol] 20 mg PO BEDTIME #30 tablet 11/01/17 [Rx] Carvedilol [Coreg] 6.25 mg PO BID 12/09/17 [History] Diltiazem HCl [Cartia Xt] 120 mg PO DAILY 12/09/17 [History] LORazepam 1 mg PO Q6HR PRN 12/09/17 [History] Ticagrelor [Brilinta] 90 mg PO BID 12/09/17 [History] Past Medical History - Past Health History Medical/Surgical History: Denies Medical/Surgical History HEENT History: Reports: Impaired Vision Cardiovascular History: Reports: Hypertension, Stents Respiratory History: Reports: None Gastrointestinal History: Reports: None Genitourinary History: Reports: Prostate Disorder Musculoskeletal History: Reports: None Neurological History: Reports: None Psychiatric History: Reports: Anxiety Endocrine/Metabolic History: Reports: Diabetes, Type II Hematologic History: Reports: None Immunologic History: Reports: None Oncologic (Cancer) History: Reports: Prostate Dermatologic History: Reports: None - Infectious Disease History Infectious Disease History: Reports: Chicken Pox, Measles, Mumps - Past Surgical History Cardiovascular Surgical History: Reports: None Male Surgical History: Reports: Prostatectomy Social & Family History - Family History Family Medical History: Noncontributory Cardiac: Reports: Hypertension Endocrine/Metabolic: Reports: Diabetes, type II - Tobacco Use Smoking Status *Q: Never Smoker Second Hand Smoke Exposure: No - Caffeine Use Caffeine Use: Reports: None Caffeine Use Comment: 2 cups daily - Alcohol Use Days Per Week of Alcohol Use: 0 - Recreational Drug Use Recreational Drug Use: No ED ROS GENERAL - Review of Systems Review Of Systems: ROS reveals no pertinent complaints other than HPI. ED EXAM, GENERAL - Physical Exam Exam: See Below (See dictation) Course - Vital Signs Last Recorded V/S: Last Vital Signs Temp 36.9 C 12/25/17 18:02 Pulse 96 12/25/17 18:02 Resp 18 12/25/17 18:02 BP 155/79 H 12/25/17 18:02 Pulse Ox 96 12/25/17 18:02 - Orders/Labs/Meds Orders: Active Orders 24 hr Category Date Time Status Bladder Scan [RC] ONETIME Care 12/25/17 17:51 Active Departure - Departure Time of Disposition: 18:21 Disposition: Home, Self-Care 01 Condition: Good Clinical Impression: Bladder pain - Discharge Information Referrals: Abdulkadir Jones MD [Primary Care Provider] - Additional Instructions: The following information is given to patients seen in the emergency department who are being discharged to home. This information is to outline your options for follow-up care. We provide all patients seen in our emergency department with a follow-up referral. The need for follow-up, as well as the timing and circumstances, are variable depending upon the specifics of your emergency department visit. If you don't have a primary care physician on staff, we will provide you with a referral. We always advise you to contact your personal physician following an emergency department visit to inform them of the circumstance of the visit and for follow-up with them and/or the need for any referrals to a consulting specialist. The emergency department will also refer you to a specialist when appropriate. This referral assures that you have the opportunity for followup care with a specialist. All of these measure are taken in an effort to provide you with optimal care, which includes your followup. Under all circumstances we always encourage you to contact your private physician who remains a resource for coordinating your care. When calling for followup care, please make the office aware that this follow-up is from your recent emergency room visit. If for any reason you are refused follow-up, please contact the [facility] emergency department at and ask to speak to the emergency department charge nurse. [facility] [address] [place] [id number] Please monitor your urine output and your fluid intake and contact Dr. Morgan with any problems. Return to ER as needed and as discussed. Expect some bleeding after the stent removal. - My Orders Last 24 Hours: My Active Orders 12/25/17 17:51 Bladder Scan [RC] ONETIME - Assessment/Plan Last 24 Hours: My Active Orders 12/25/17 17:51 Bladder Scan [RC] ONETIME
[2017-12-25 18:15] VITALS: BP 155/79
== END 2017-12-25 18:40 | disposition home or self-care (01) ==
LOC: MW.ED 17:38
DX: R39.89 Other symptoms and signs involving the genitourinary system (principal); N13.30 Unspecified hydronephrosis; N20.1 Calculus of ureter; E11.9 Type 2 diabetes mellitus without complications; I10 Essential (primary) hypertension; Z79.899 Other long term (current) drug therapy; Z79.82 Long term (current) use of aspirin
CPT/HCPCS: 51798; 52000; 99283; 99284

== ENCOUNTER 2018-04-14 02:22 | Emergency (ER) | payer MEDICARE, OTHER ==
[2018-04-14] MEDS ORDERED: Sodium Chloride 0.9% 1,000 ML IV ONE (03:02)
[2018-04-14] MEDS ORDERED: Ketorolac 30 MG/ML SDV IVPUSH ONE (03:02)
[2018-04-14] MEDS ORDERED: Ondansetron 4 MG/2 ML SDV IVPUSH ONE (03:03)
--- NOTE | 2018-04-14 03:03 | EDM.PDOC ---
ED HPI GENERAL MEDICAL PROBLEM - General Chief Complaint: Abdominal Pain Stated Complaint: PAIN ON RIGHT SIDE Time Seen by Provider: 04/14/18 03:03 Source of Information: Reports: Patient - History of Present Illness INITIAL COMMENTS - FREE TEXT/NARRATIVE: HISTORY AND PHYSICAL: History of present illness: [Patient presents with right-sided abdominal pain that awoke him from sleep. 8 out of 10 nonradiating no fever intermittent nausea no vomiting chills sweats ] Review of systems: As per history of present illness and below otherwise all systems reviewed and negative. Past medical history: As per history of present illness and as reviewed below otherwise noncontributory. Surgical history: As per history of present illness and as reviewed below otherwise noncontributory. Social history: No reported history of drug or alcohol abuse. Family history: As per history of present illness and as reviewed below otherwise noncontributory. Physical exam: HEENT: Atraumatic, normocephalic, pupils reactive, negative for conjunctival pallor or scleral icterus, mucous membranes moist, throat clear, neck supple, nontender, trachea midline. Lungs: Clear to auscultation, breath sounds equal bilaterally, chest nontender. Heart: S1S2, regular, negative for clicks, rubs, or JVD. Abdomen: Soft, nondistended, tender on deep palpation on the right no guarding or rebound Negative for masses or hepatosplenomegaly. Negative for costovertebral tenderness. Pelvis: Stable nontender. Genitourinary: Deferred. Rectal: Deferred. Extremities: Atraumatic, negative for cords or calf pain. Neurovascular unremarkable. Neuro: Awake, alert, oriented. Cranial nerves II through XII unremarkable. Cerebellum unremarkable. Motor and sensory unremarkable throughout. Exam nonfocal. Diagnostics: [CBC CMP UA with culture troponin lipase with and without contrast abdomen pelvis CT] Therapeutics: [1 L normal saline bolus Zofran 8 mg IV Toradol 30 mg IV Flomax 0.8 mg by mouth now Solu-Medrol 125 mg IV ] filtering collection equipment provided Return stone to urology for pathology testing Follow-up with Dr. Eddie Alfonso Impression: [ 3 mm right ureteral stone ]-pain 0 out of 10 at discharge Definitive disposition and diagnosis as appropriate pending reevaluation and review of above. Right Lower Abdomen Pain Score (Numeric/FACES): 7 - Related Data Allergies Allergy/AdvReac Type Severity Reaction Status Date / Time No Known Allergies Allergy Verified 04/14/18 02:56 Home Meds: Home Meds Losartan Potassium 100 mg PO DAILY 03/28/16 [History] metFORMIN HCl [Metformin HCl] 1,000 mg PO BIDMEALS 03/28/16 [History] Aspirin [Halfprin] 81 mg PO DAILY #30 tab.ec 11/01/17 [Rx] Metoprolol Succinate 50 mg PO DAILY #30 tab.er.24h 11/01/17 [Rx] Nitroglycerin [IJP: Nitroglycerin] 0.4 mg SL Q5M PRN #6 tablet, sublingual 11/01 [Rx] Carvedilol [Coreg] 6.25 mg PO BID 12/09/17 [History] Diltiazem HCl [Cartia Xt] 120 mg PO DAILY 12/09/17 [History] LORazepam 1 mg PO Q6HR PRN 12/09/17 [History] Ticagrelor [Brilinta] 90 mg PO BID 12/09/17 [History] Past Medical History - Past Health History Medical/Surgical History: Denies Medical/Surgical History HEENT History: Reports: Impaired Vision Cardiovascular History: Reports: Hypertension, Stents Respiratory History: Reports: None Gastrointestinal History: Reports: None Genitourinary History: Reports: Prostate Disorder Musculoskeletal History: Reports: None Neurological History: Reports: None Psychiatric History: Reports: Anxiety Endocrine/Metabolic History: Reports: Diabetes, Type II Hematologic History: Reports: None Immunologic History: Reports: None Oncologic (Cancer) History: Reports: Prostate Dermatologic History: Reports: None - Infectious Disease History Infectious Disease History: Reports: Chicken Pox, Measles, Mumps - Past Surgical History Cardiovascular Surgical History: Reports: None Male Surgical History: Reports: Prostatectomy Social & Family History - Family History Family Medical History: Noncontributory Cardiac: Reports: Hypertension Endocrine/Metabolic: Reports: Diabetes, type II - Caffeine Use Caffeine Use: Reports: None Caffeine Use Comment: 2 cups daily ED ROS GENERAL - Review of Systems Review Of Systems: See Below ED EXAM, GENERAL - Physical Exam Exam: See Below Course - Vital Signs Last Recorded V/S: Last Vital Signs Temp 97.2 F 04/14/18 02:59 Pulse 64 04/14/18 02:59 Resp 20 04/14/18 02:59 BP 161/70 H 04/14/18 02:59 Pulse Ox 95 04/14/18 02:59 - Orders/Labs/Meds Orders: Active Orders 24 hr Category Date Time Status Abdomen Pelvis w Cont [CT] Stat Exams 04/14/18 03:02 Stop Req Abdomen Pelvis w wo Cont [CT] Stat Exams 04/14/18 03:03 Taken CULTURE URINE [RM] Stat Lab 04/14/18 05:34 Ordered UA W/MICROSCOPIC [URIN] Stat Lab 04/14/18 02:40 Ordered Labs: Laboratory Tests 04/14/18 04/14/18 04/14/18 Range/Units 02:40 03:25 03:25 WBC 15.10 H (4.0-11.0) K/uL RBC 4.57 (4.50-5.90) M/uL Hgb 13.2 (13.0-17.0) g/dL Hct 40.0 (38.0-50.0) % MCV 87.5 (80.0-98.0) fL MCH 28.9 (27.0-32.0) pg MCHC 33.0 (31.0-37.0) g/dL RDW Std Deviation 45.8 (28.0-62.0) fl RDW Coeff of Isael 14 (11.0-15.0) % Plt Count 347 (150-400) K/uL MPV 9.20 (7.40-12.00) fL Neut % (Auto) 84.1 H (48.0-80.0) % Lymph % (Auto) 9.3 L (16.0-40.0) % Sevier % (Auto) 4.9 (0.0-15.0) % Eos % (Auto) 1.4 (0.0-7.0) % Baso % (Auto) 0.3 (0.0-1.5) % Neut # (Auto) 12.7 H (1.4-5.7) K/uL Lymph # (Auto) 1.4 (0.6-2.4) K/uL Sevier # (Auto) 0.7 (0.0-0.8) K/uL Eos # (Auto) 0.2 (0.0-0.7) K/uL Baso # (Auto) 0.0 (0.0-0.1) K/uL Nucleated RBC % 0.0 /100WBC Nucleated RBCs # 0 K/uL Sodium 140 (136-148) mmol/L Potassium 4.0 (3.5-5.1) mmol/L Chloride 105 (98-107) mmol/L Carbon Dioxide 26.3 (21.0-32.0) mmol/L BUN 20 H (7.0-18.0) mg/dL Creatinine 1.3 (0.8-1.3) mg/dL Est Cr Clr Drug Dosing 54.71 mL/min Estimated GFR (MDRD) 54.3 ml/min Glucose 171 H (74-106) mg/dL Calcium 8.8 (8.5-10.1) mg/dL Total Bilirubin 0.2 (0.2-1.0) mg/dL AST 17 (15-37) IU/L ALT 24 (14-63) IU/L Alkaline Phosphatase 44 L (46-116) U/L Troponin I < 0.050 (0.000-0.056) ng/mL Total Protein 7.3 (6.4-8.2) g/dL Albumin 3.5 (3.4-5.0) g/dL Globulin 3.8 H (2.0-3.5) g/dL Albumin/Globulin Ratio 0.9 L (1.3-2.8) Lipase 111 (73-393) U/L Urine Color YELLOW Urine Appearance HAZY Urine pH 5.5 (5.0-8.0) Ur Specific Ivins >= 1.030 (1.001-1.035) Urine Protein 100 (NEGATIVE) mg/dL Urine Glucose (UA) NEGATIVE (NEGATIVE) mg/dL Urine Ketones NEGATIVE (NEGATIVE) mg/dL Urine Occult Blood SMALL H (NEGATIVE) Urine Nitrite NEGATIVE (NEGATIVE) Urine Bilirubin NEGATIVE (NEGATIVE) Urine Urobilinogen 0.2 (<2.0) EU/dL Ur Leukocyte Esterase NEGATIVE (NEGATIVE) Urine RBC 4-6 (0-2/HPF) Urine WBC 0-2 (0-5/HPF) Ur Epithelial Cells RARE (NONE-FEW) Urine Bacteria FEW (NEGATIVE) Meds: Medications Discontinued Medications Generic Name Dose Route Start Last Admin Trade Name Freq PRN Reason Stop Dose Admin Sodium Chloride 1,000 mls @ 999 mls/hr 04/14/18 03:02 04/14/18 03:33 Normal Saline IV 04/14/18 04:02 999 mls/hr STAT ONE Administration Ketorolac Tromethamine 30 mg 04/14/18 03:02 04/14/18 03:34 Toradol IVPUSH 04/14/18 03:03 30 mg ONETIME ONE Administration Methylprednisolone Sodium Succinate 125 mg 04/14/18 05:22 04/14/18 05:31 Solu-Medrol IVPUSH 04/14/18 05:23 125 mg ONETIME ONE Administration Ondansetron HCl 8 mg 04/14/18 03:03 04/14/18 03:33 Zofran IVPUSH 04/14/18 03:04 8 mg ONETIME ONE Administration Tamsulosin HCl 0.8 mg 04/14/18 05:21 04/14/18 05:30 Flomax PO 04/14/18 05:22 0.8 mg NOW STA Administration Departure - Departure Time of Disposition: 05:39 Disposition: Home, Self-Care 01 Condition: Good Clinical Impression: Ureteral stone - Discharge Information Referrals: PCP,None [Primary Care Provider] - Forms: ED Department Discharge Additional Instructions: Medication as prescribed Filter urine collection equipment provided Return stone to urology or primary care Return if symptoms persist or worsen or new concerning symptoms develop [facility] - Primary Care [address] [place] [address] [facility] - Urology [address] [place] [address] The following information is given to patients seen in the emergency department who are being discharged to home. This information is to outline your options for follow-up care. We provide all patients seen in our emergency department with a follow-up referral. The need for follow-up, as well as the timing and circumstances, are variable depending upon the specifics of your emergency department visit. If you don't have a primary care physician on staff, we will provide you with a referral. We always advise you to contact your personal physician following an emergency department visit to inform them of the circumstance of the visit and for follow-up with them and/or the need for any referrals to a consulting specialist. The emergency department will also refer you to a specialist when appropriate. This referral assures that you have the opportunity for follow-up care with a specialist. All of these measure are taken in an effort to provide you with optimal care, which includes your follow-up. Under all circumstances we always encourage you to contact your private physician who remains a resource for coordinating your care. When calling for follow-up care, please make the office aware that this follow-up is from your recent emergency room visit. If for any reason you are refused follow-up, please contact the [facility] emergency department at and asked to speak to the emergency department charge nurse. - My Orders Last 24 Hours: My Active Orders 04/14/18 02:40 UA W/MICROSCOPIC [URIN] Stat 04/14/18 03:02 Abdomen Pelvis w Cont [CT] Stat 04/14/18 03:03 Abdomen Pelvis w wo Cont [CT] Stat 04/14/18 05:34 CULTURE URINE [RM] Stat - Assessment/Plan Last 24 Hours: My Active Orders 04/14/18 02:40 UA W/MICROSCOPIC [URIN] Stat 04/14/18 03:02 Abdomen Pelvis w Cont [CT] Stat 04/14/18 03:03 Abdomen Pelvis w wo Cont [CT] Stat 04/14/18 05:34 CULTURE URINE [RM] Stat
[2018-04-14 04:00] LABS: CHLORIDE,CL 105 mmol/L (98-107); SODIUM,NA 140 mmol/L (136-148)
[2018-04-14] MEDS ORDERED: Tamsulosin 0.4 MG Cap.ER PO STA (05:21)
[2018-04-14] MEDS ORDERED: methylPREDNISolone Sodium Succinate 125 MG/2 ML SDV IVPUSH ONE (05:22)
[2018-04-14 05:45] VITALS: BP 205/83
--- NOTE | 2018-04-16 11:50 | CT ---
EXAM DATE: 04/14/18 PATIENT'S AGE: 73 Patient: MISHA MAHAN Facility: [place], [place] Site . Site : 1945 Study: CT Abdomen/Pelvis W/ and W/O Cont [id number]/26/2018 4:47:50 AM Ordering Physician: Ayad Mccarthy Final Report: INDICATION: Generalized abdominal pain; nausea. COMPARISON: CT abdomen and pelvis December 09, 2017. TECHNIQUE: CT abdomen and pelvis without and then with intravenous contrast; coronal and sagittal reformats. FINDINGS: No abnormal intra pulmonary nodular densities through the lung bases. No evidence of pleural effusion. Normal size cardiac silhouette without any evidence of pericardial effusion. Minimal thickening of the distal esophagus with small hiatus hernia. No focal hepatic or splenic pathology. No pancreatic pathology. Gallbladder is unremarkable. Stable nodular enlargement of both adrenal glands .no retroperitoneal lymphadenopathy. No kidneys stones or obstructive uropathy on the left side. Nonobstructing renal calculi right kidney. Hydronephrosis and hydroureter on the right with 3 mm stone at the right ureterovesical junction. No retroperitoneal lymphadenopathy. Normal appendix. No evidence of abdominal or pelvic ascites. Status post prostatectomy. Penile implant present. IMPRESSION: 1. 3 mm stone at the right ureterovesical junction causing moderate right-sided hydronephrosis and hydroureter. 2. Nonobstructing renal calculi right kidney. 3. Nodular enlargement of both adrenal glands; stable since December 09, 2017. 4. Status post prostatectomy. 5. Penile implant in place. 6. Thickening of the wall of distal esophagus with small hiatus hernia. Please note that all CT scans at this facility use dose modulation, iterative reconstruction, and/or weight-based dosing when appropriate to reduce radiation dose to as low as reasonably achievable. Dictated by Moise Huntley MD @ Apr 15 2018 9:08AM (Electronic Signature) Report Signed by Proxy. GLENDA
== END 2018-04-14 05:55 | disposition home or self-care (01) ==
LOC: MW.ED 02:22
DX: N13.2 Hydronephrosis with renal and ureteral calculous obstruction (principal); I10 Essential (primary) hypertension; E11.9 Type 2 diabetes mellitus without complications; Z79.84 Long term (current) use of oral hypoglycemic drugs; Z79.82 Long term (current) use of aspirin; Z79.899 Other long term (current) drug therapy; F41.9 Anxiety disorder, unspecified; Z95.5 Presence of coronary angioplasty implant and graft
CPT/HCPCS: 36415; 74178; 80053; 81001; 83690; 84484; 85025; 87086; 96361; 96374; 96375; 99284; A9270; J1885; J2405; J2930; J7040

== ENCOUNTER 2018-05-25 07:22 | Emergency (ER) | payer MEDICARE, OTHER ==
--- NOTE | 2018-05-25 07:35 | EDM.PDOC ---
ED HPI GENERAL MEDICAL PROBLEM - General Chief Complaint: Genitourinary Problem Stated Complaint: BLADDER PAIN Time Seen by Provider: 05/25/18 07:34 Source of Information: Reports: Patient - History of Present Illness INITIAL COMMENTS - FREE TEXT/NARRATIVE: HISTORY AND PHYSICAL: History of present illness: [Patient with history of renal stones and recently seen about a month prior with a stone the ureter, he was discharged and did pass the previous stone pirate today presents again with some right-sided discomfort 5 out of 10 nonradiating pain No fever vomiting chills sweats mild nausea ] Review of systems: As per history of present illness and below otherwise all systems reviewed and negative. Past medical history: As per history of present illness and as reviewed below otherwise noncontributory. Surgical history: As per history of present illness and as reviewed below otherwise noncontributory. Social history: No reported history of drug or alcohol abuse. Family history: As per history of present illness and as reviewed below otherwise noncontributory. Physical exam: HEENT: Atraumatic, normocephalic, pupils reactive, negative for conjunctival pallor or scleral icterus, mucous membranes moist, throat clear, neck supple, nontender, trachea midline. Lungs: Clear to auscultation, breath sounds equal bilaterally, chest nontender. Heart: S1S2, regular, negative for clicks, rubs, or JVD. Abdomen: Soft, nondistended, nontender. Negative for masses or hepatosplenomegaly. Negative for costovertebral tenderness. Pelvis: Stable nontender. Genitourinary: Deferred. Rectal: Deferred. Extremities: Atraumatic, negative for cords or calf pain. Neurovascular unremarkable. Neuro: Awake, alert, oriented. Cranial nerves II through XII unremarkable. Cerebellum unremarkable. Motor and sensory unremarkable throughout. Exam nonfocal. Diagnostics: [UA] with culture CBC CMP CT abdomen pelvis no contrast Therapeutics: [] 1 L normal saline bolus Toradol 30 mg IV Zofran 8 mg IV Flomax Solu-Medrol [place] Zofran Flomax Keflex Impression: [ 3 mm ureteral stone right UVJ] Definitive disposition and diagnosis as appropriate pending reevaluation and review of above. Lower Abdomen Pain Score (Numeric/FACES): 10 - Related Data Allergies Allergy/AdvReac Type Severity Reaction Status Date / Time No Known Allergies Allergy Verified 05/25/18 07:35 Home Meds: Home Meds Losartan Potassium 100 mg PO DAILY 03/28/16 [History] metFORMIN HCl [Metformin HCl] 1,000 mg PO BIDMEALS 03/28/16 [History] Aspirin [Halfprin] 81 mg PO DAILY #30 tab.ec 11/01/17 [Rx] Metoprolol Succinate 50 mg PO DAILY #30 tab.er.24h 11/01/17 [Rx] Nitroglycerin [IJP: Nitroglycerin] 0.4 mg SL Q5M PRN #6 tablet, sublingual 11/01 [Rx] Carvedilol [Coreg] 6.25 mg PO BID 12/09/17 [History] Diltiazem HCl [Cartia Xt] 120 mg PO DAILY 12/09/17 [History] LORazepam 1 mg PO Q6HR PRN 12/09/17 [History] Ticagrelor [Brilinta] 90 mg PO BID 12/09/17 [History] Past Medical History - Past Health History Medical/Surgical History: Denies Medical/Surgical History HEENT History: Reports: Impaired Vision Cardiovascular History: Reports: Hypertension, Stents Respiratory History: Reports: None Gastrointestinal History: Reports: None Genitourinary History: Reports: Prostate Disorder Musculoskeletal History: Reports: None Neurological History: Reports: None Psychiatric History: Reports: Anxiety Endocrine/Metabolic History: Reports: Diabetes, Type II Hematologic History: Reports: None Immunologic History: Reports: None Oncologic (Cancer) History: Reports: Prostate Dermatologic History: Reports: None - Infectious Disease History Infectious Disease History: Reports: Chicken Pox, Measles, Mumps - Past Surgical History Cardiovascular Surgical History: Reports: None Male Surgical History: Reports: Prostatectomy Social & Family History - Family History Family Medical History: Noncontributory Cardiac: Reports: Hypertension Endocrine/Metabolic: Reports: Diabetes, type II - Caffeine Use Caffeine Use: Reports: None Caffeine Use Comment: 2 cups daily ED ROS GENERAL - Review of Systems Review Of Systems: See Below ED EXAM, GENERAL - Physical Exam Exam: See Below Course - Vital Signs Last Recorded V/S: Last Vital Signs Temp 94.8 F L 05/25/18 07:36 Pulse 60 05/25/18 09:35 Resp 16 05/25/18 09:35 BP 184/81 H 05/25/18 09:35 Pulse Ox 96 05/25/18 09:35 - Orders/Labs/Meds Orders: Active Orders 24 hr Category Date Time Status Abdomen Pelvis wo Cont [CT] Stat Exams 05/25/18 08:09 Taken CULTURE URINE [RM] Stat Lab 05/25/18 07:54 Received UA W/MICROSCOPIC [URIN] Stat Lab 05/25/18 07:54 Ordered Labs: Laboratory Tests 05/25/18 05/25/18 05/25/18 Range/Units 07:54 08:22 08:42 WBC 11.71 H (4.0-11.0) K/uL RBC 4.60 (4.50-5.90) M/uL Hgb 13.1 (13.0-17.0) g/dL Hct 39.6 (38.0-50.0) % MCV 86.1 (80.0-98.0) fL MCH 28.5 (27.0-32.0) pg MCHC 33.1 (31.0-37.0) g/dL RDW Std Deviation 45.0 (28.0-62.0) fl RDW Coeff of Isael 14 (11.0-15.0) % Plt Count 311 (150-400) K/uL MPV 9.20 (7.40-12.00) fL Neut % (Auto) 87.2 H (48.0-80.0) % Lymph % (Auto) 7.8 L (16.0-40.0) % [place] % (Auto) 4.0 (0.0-15.0) % Eos % (Auto) 0.7 (0.0-7.0) % Baso % (Auto) 0.3 (0.0-1.5) % Neut # (Auto) 10.2 H (1.4-5.7) K/uL Lymph # (Auto) 0.9 (0.6-2.4) K/uL [place] # (Auto) 0.5 (0.0-0.8) K/uL Eos # (Auto) 0.1 (0.0-0.7) K/uL Baso # (Auto) 0.0 (0.0-0.1) K/uL Nucleated RBC % 0.0 /100WBC Nucleated RBCs # 0 K/uL Sodium 141 (136-148) mmol/L Potassium 3.6 (3.5-5.1) mmol/L Chloride 105 (98-107) mmol/L Carbon Dioxide 24.4 (21.0-32.0) mmol/L BUN 19 H (7.0-18.0) mg/dL Creatinine 1.2 (0.8-1.3) mg/dL Est Cr Clr Drug Dosing 59.26 mL/min Estimated GFR (MDRD) 59.5 ml/min Glucose 152 H (74-106) mg/dL Calcium 8.5 (8.5-10.1) mg/dL Total Bilirubin 0.3 (0.2-1.0) mg/dL AST 19 (15-37) IU/L ALT 28 (14-63) IU/L Alkaline Phosphatase 39 L (46-116) U/L Total Protein 6.9 (6.4-8.2) g/dL Albumin 3.3 L (3.4-5.0) g/dL Globulin 3.6 H (2.0-3.5) g/dL Albumin/Globulin Ratio 0.9 L (1.3-2.8) Urine Color YELLOW Urine Appearance CLEAR Urine pH 5.5 (5.0-8.0) Ur Specific [place] >= 1.030 (1.001-1.035) Urine Protein 100 (NEGATIVE) mg/dL Urine Glucose (UA) NEGATIVE (NEGATIVE) mg/dL Urine Ketones NEGATIVE (NEGATIVE) mg/dL Urine Occult Blood MODERATE (NEGATIVE) Urine Nitrite NEGATIVE (NEGATIVE) Urine Bilirubin NEGATIVE (NEGATIVE) Urine Urobilinogen 0.2 (<2.0) EU/dL Ur Leukocyte Esterase NEGATIVE (NEGATIVE) Urine RBC 2-5 (0-2/HPF) Urine WBC 0-1 (0-5/HPF) Ur Epithelial Cells OCCASIONAL (NONE-FEW) Urine Bacteria RARE (NEGATIVE) Urine Mucus LIGHT (NONE-MOD) Meds: Medications Discontinued Medications Generic Name Dose Route Start Last Admin Trade Name Freq PRN Reason Stop Dose Admin Sodium Chloride 1,000 mls @ 999 mls/hr 05/25/18 08:08 05/25/18 08:42 Normal Saline IV 05/25/18 09:08 500 mls/hr STAT ONE Administration Ketorolac Tromethamine 30 mg 05/25/18 08:08 05/25/18 08:45 Toradol IVPUSH 05/25/18 08:09 30 mg ONETIME ONE Administration Ondansetron HCl 8 mg 05/25/18 08:11 05/25/18 08:42 Zofran IVPUSH 05/25/18 08:12 8 mg ONETIME ONE Administration Departure - Departure Time of Disposition: 10:59 Disposition: Home, Self-Care 01 Condition: Good Clinical Impression: Ureteral stone - Discharge Information Referrals: PCP,None [Primary Care Provider] - Forms: ED Department Discharge Additional Instructions: Medication as prescribed Return if symptoms persist or worsen Follow-up with Dr. Morgan urology, call phone number below to schedule appropriate follow-up Provide collection equipment for stone recovery, and pathology [facility] - Urology [address] [place] [id number] The following information is given to patients seen in the emergency department who are being discharged to home. This information is to outline your options for follow-up care. We provide all patients seen in our emergency department with a follow-up referral. The need for follow-up, as well as the timing and circumstances, are variable depending upon the specifics of your emergency department visit. If you don't have a primary care physician on staff, we will provide you with a referral. We always advise you to contact your personal physician following an emergency department visit to inform them of the circumstance of the visit and for follow-up with them and/or the need for any referrals to a consulting specialist. The emergency department will also refer you to a specialist when appropriate. This referral assures that you have the opportunity for follow-up care with a specialist. All of these measure are taken in an effort to provide you with optimal care, which includes your follow-up. Under all circumstances we always encourage you to contact your private physician who remains a resource for coordinating your care. When calling for follow-up care, please make the office aware that this follow-up is from your recent emergency room visit. If for any reason you are refused follow-up, please contact the [facility] emergency department at and asked to speak to the emergency department charge nurse. - My Orders Last 24 Hours: My Active Orders 05/25/18 07:54 CULTURE URINE [RM] Stat UA W/MICROSCOPIC [URIN] Stat 05/25/18 08:09 Abdomen Pelvis wo Cont [CT] Stat - Assessment/Plan Last 24 Hours: My Active Orders 05/25/18 07:54 CULTURE URINE [RM] Stat UA W/MICROSCOPIC [URIN] Stat 05/25/18 08:09 Abdomen Pelvis wo Cont [CT] Stat
[2018-05-25] MEDS ORDERED: Sodium Chloride 0.9% 1,000 ML IV ONE (08:08)
[2018-05-25] MEDS ORDERED: Ketorolac 30 MG/ML SDV IVPUSH ONE (08:08)
[2018-05-25] MEDS ORDERED: Ondansetron 4 MG/2 ML SDV IVPUSH ONE (08:11)
[2018-05-25 11:19] VITALS: BP 173/77
--- NOTE | 2018-05-25 16:53 | CT ---
EXAM DATE: 05/25/18 PATIENT'S AGE: 73 Patient: MISHA MAHAN Facility: [place], [place] Site . Site : 1945 Study: CT Abdomen/Pelvis [id number] 10:11:00 AM Ordering Physician: Ayad Mccarhty Final Report: INDICATION: Abdomen or pelvic pain. History of renal stones. TECHNIQUE: CT abdomen and pelvis without contrast. COMPARISON: 04/14/2018. FINDINGS: Lower chest: Unremarkable. Liver: Normal in size and attenuation. No masses. Gallbladder and bile ducts: No stones or inflammation. No biliary dilatation. Pancreas: Unremarkable. No mass or inflammation. Spleen: Normal in size. No masses. Adrenal glands: Stable bilateral adrenal enlargement. Kidneys: Again demonstrated is moderate right-sided hydroureteronephrosis, similar to the prior exam. Suspected 3 mm stone is at the right ureterovesical junction on series 201, image 128. There are 2 small stones remaining in the right kidney. No left-sided stones. GI tract: There is severe diffuse colonic diverticulosis. GI tract and appendix are otherwise normal. Vasculature: Unremarkable. Lymph nodes: No lymphadenopathy. Abdominal wall/Omentum/Peritoneum: Unremarkable. No sign of mass or infiltration. No free air or significant free fluid. Pelvis: Status post prostatectomy. Urinary bladder is unremarkable. Stable penile implant. Bones: Unremarkable for age. IMPRESSION: Suspected recurrent or persistent 3 mm stone at the right UVJ with moderate hydroureteronephrosis, similar to the prior exam. However, assessment for stone near the base of the bladder is limited by artifact from surgical clips from a prostatectomy. There are 2 tiny stones remaining in the right kidney. No other acute findings or changes from the prior exam. No other finding to explain abdominal pain. Please note that all CT scans at this facility use dose modulation, iterative reconstruction, and/or weight-based dosing when appropriate to reduce radiation dose to as low as reasonably achievable. Dictated by Mason Granados MD @ May 25 2018 10:27AM (Electronic Signature) Report Signed by Proxy. [facility]
== END 2018-05-25 11:17 | disposition home or self-care (01) ==
LOC: MW.ED 07:22
DX: N13.2 Hydronephrosis with renal and ureteral calculous obstruction (principal); E11.9 Type 2 diabetes mellitus without complications; I10 Essential (primary) hypertension; Z79.84 Long term (current) use of oral hypoglycemic drugs; Z79.899 Other long term (current) drug therapy; F41.9 Anxiety disorder, unspecified
CPT/HCPCS: 36415; 74176; 80053; 81001; 85025; 87086; 96361; 96374; 96375; 99284; J1885; J2405; J7040

== ENCOUNTER 2018-08-14 07:51 | Emergency (ER) | payer MEDICARE, OTHER ==
[2018-08-14] MEDS ORDERED: Aspirin 81 MG Tab.Chew PO ONE (07:53)
--- NOTE | 2018-08-14 07:55 | EDM.PDOC ---
ED HPI GENERAL MEDICAL PROBLEM - General Stated Complaint: CHEST PAINS Time Seen by Provider: 08/14/18 07:54 Source of Information: Reports: Patient - History of Present Illness INITIAL COMMENTS - FREE TEXT/NARRATIVE: HISTORY AND PHYSICAL: History of present illness: [Patient presents with complaint of intermittent chest pains, no exertional component no diaphoresis he points to his epigastric area rates pain 3 out of 10 intermittently no fever nausea vomiting chills sweats no chest pain shortness breath headache dizziness palpitation no bowel or urine symptoms] Patient is known to have high triglycerides, he is not an alcohol drinker He was able to eat breakfast this morning with minimal discomfort Review of systems: As per history of present illness and below otherwise all systems reviewed and negative. Past medical history: As per history of present illness and as reviewed below otherwise noncontributory. Surgical history: As per history of present illness and as reviewed below otherwise noncontributory. Social history: No reported history of drug or alcohol abuse. Family history: As per history of present illness and as reviewed below otherwise noncontributory. Physical exam: HEENT: Atraumatic, normocephalic, pupils reactive, negative for conjunctival pallor or scleral icterus, mucous membranes moist, throat clear, neck supple, nontender, trachea midline. Lungs: Clear to auscultation, breath sounds equal bilaterally, chest nontender. Heart: S1S2, regular, negative for clicks, rubs, or JVD. Abdomen: Soft, nondistended, nontender. Negative for masses or hepatosplenomegaly. Negative for costovertebral tenderness. Pelvis: Stable nontender. Genitourinary: Deferred. Rectal: Deferred. Extremities: Atraumatic, negative for cords or calf pain. Neurovascular unremarkable. Neuro: Awake, alert, oriented. Cranial nerves II through XII unremarkable. Cerebellum unremarkable. Motor and sensory unremarkable throughout. Exam nonfocal. Diagnostics: []CBC CMP troponin lipase UA EKG Chest 1 view Therapeutics: Aspirin 324 mg chewable Normal saline 500 mL bolus Currently or we are on diversion patient is offered transferred to [facility] Dr. Alexander refuses stating you wishes to return home and return if symptoms persist or worsen In lieu of not being transferred or admitted patient counseled on pushing fluids and strongly encouraged follow-up with primary care Impression: Pancreatitis Chronic history baseline Definitive disposition and diagnosis as appropriate pending reevaluation and review of above. lungs, chest Pain Score (Numeric/FACES): 5 - Related Data Allergies Allergy/AdvReac Type Severity Reaction Status Date / Time No Known Allergies Allergy Verified 08/14/18 08:06 Home Meds: Home Meds Losartan Potassium 100 mg PO DAILY 03/28/16 [History] metFORMIN HCl [Metformin HCl] 1,000 mg PO BIDMEALS 03/28/16 [History] Metoprolol Succinate 50 mg PO DAILY #30 tab.er.24h 11/01/17 [Rx] Nitroglycerin [IJP: Nitroglycerin] 0.4 mg SL Q5M PRN #6 tablet, sublingual 11/01 [Rx] Carvedilol [Coreg] 6.25 mg PO BID 12/09/17 [History] Diltiazem HCl [Cartia Xt] 120 mg PO DAILY 12/09/17 [History] LORazepam 1 mg PO Q6HR PRN 12/09/17 [History] Ticagrelor [Brilinta] 90 mg PO BID 12/09/17 [History] Aspirin [Halfprin] 81 mg PO BID 08/14/18 [History] Gabapentin [Neurontin] 1 tab PO BID 08/14/18 [History] Past Medical History - Past Health History Medical/Surgical History: Denies Medical/Surgical History HEENT History: Reports: Impaired Vision Cardiovascular History: Reports: Hypertension, Stents Respiratory History: Reports: None Gastrointestinal History: Reports: None Genitourinary History: Reports: Prostate Disorder Musculoskeletal History: Reports: None Neurological History: Reports: None Psychiatric History: Reports: Anxiety Endocrine/Metabolic History: Reports: Diabetes, Type II Hematologic History: Reports: None Immunologic History: Reports: None Oncologic (Cancer) History: Reports: Prostate Dermatologic History: Reports: None - Infectious Disease History Infectious Disease History: Reports: Chicken Pox, Measles, Mumps - Past Surgical History Cardiovascular Surgical History: Reports: None Male Surgical History: Reports: Prostatectomy Social & Family History - Family History Family Medical History: Noncontributory Cardiac: Reports: Hypertension Endocrine/Metabolic: Reports: Diabetes, type II - Caffeine Use Caffeine Use: Reports: None Caffeine Use Comment: 2 cups daily ED ROS GENERAL - Review of Systems Review Of Systems: See Below ED EXAM, GENERAL - Physical Exam Exam: See Below Course - Vital Signs Last Recorded V/S: Last Vital Signs Temp 97.4 F 08/14/18 07:55 Pulse 95 08/14/18 08:10 Resp 18 08/14/18 08:10 BP 164/78 H 08/14/18 08:10 Pulse Ox 95 08/14/18 09:10 - Orders/Labs/Meds Orders: Active Orders 24 hr Category Date Time Status EKG Documentation Completion [RC] STAT Care 08/14/18 07:53 Active RT Aerosol Therapy [RC] ASDIRECTED Care 08/14/18 08:32 Active Sodium Chloride 0.9% [Normal Saline] 500 ml Med 08/14/18 08:00 Active IV STAT Medication Orders Sodium Chloride (Normal Saline) 500 mls @ 999 mls/hr IV STAT CANDICE Last Admin: 08/14/18 08:22 Dose: 999 mls/hr Labs: Laboratory Tests 08/14/18 08/14/18 08/14/18 Range/Units 08:00 08:00 08:00 WBC 16.80 H (4.0-11.0) K/uL RBC 4.55 (4.50-5.90) M/uL Hgb 13.0 (13.0-17.0) g/dL Hct 39.1 (38.0-50.0) % MCV 85.9 (80.0-98.0) fL MCH 28.6 (27.0-32.0) pg MCHC 33.2 (31.0-37.0) g/dL RDW Std Deviation 47.2 (28.0-62.0) fl RDW Coeff of Isael 15 (11.0-15.0) % Plt Count 331 (150-400) K/uL MPV 9.30 (7.40-12.00) fL Neut % (Auto) 86.0 H (48.0-80.0) % Lymph % (Auto) 5.2 L (16.0-40.0) % [place] % (Auto) 7.9 (0.0-15.0) % Eos % (Auto) 0.7 (0.0-7.0) % Baso % (Auto) 0.2 (0.0-1.5) % Neut # (Auto) 14.5 H (1.4-5.7) K/uL Lymph # (Auto) 0.9 (0.6-2.4) K/uL [place] # (Auto) 1.3 H (0.0-0.8) K/uL Eos # (Auto) 0.1 (0.0-0.7) K/uL Baso # (Auto) 0.0 (0.0-0.1) K/uL Nucleated RBC % 0.0 /100WBC Nucleated RBCs # 0 K/uL Sodium 138 (136-148) mmol/L Potassium 4.1 (3.5-5.1) mmol/L Chloride 104 (98-107) mmol/L Carbon Dioxide 24.1 (21.0-32.0) mmol/L BUN 17 (7.0-18.0) mg/dL Creatinine 1.1 (0.8-1.3) mg/dL Est Cr Clr Drug Dosing 64.65 mL/min Estimated GFR (MDRD) > 60.0 ml/min Glucose 146 H (74-106) mg/dL Calcium 8.9 (8.5-10.1) mg/dL Total Bilirubin 0.4 (0.2-1.0) mg/dL AST 14 L (15-37) IU/L ALT 25 (14-63) IU/L Alkaline Phosphatase 50 (46-116) U/L Lactate Dehydrogenase (81-234) U/L Troponin I < 0.050 (0.000-0.056) ng/mL Total Protein 7.6 (6.4-8.2) g/dL Albumin 3.5 (3.4-5.0) g/dL Globulin 4.1 H (2.0-3.5) g/dL Albumin/Globulin Ratio 0.9 L (1.3-2.8) Lipase 633 H (73-393) U/L Urine Color Urine Appearance Urine pH (5.0-8.0) Ur Specific [place] (1.001-1.035) Urine Protein (NEGATIVE) mg/dL Urine Glucose (UA) (NEGATIVE) mg/dL Urine Ketones (NEGATIVE) mg/dL Urine Occult Blood (NEGATIVE) Urine Nitrite (NEGATIVE) Urine Bilirubin (NEGATIVE) Urine Urobilinogen (<2.0) EU/dL Ur Leukocyte Esterase (NEGATIVE) Urine RBC (0-2/HPF) Urine WBC (0-5/HPF) Ur Epithelial Cells (NONE-FEW) Urine Bacteria (NEGATIVE) Ethyl Alcohol <3 mg/dL 08/14/18 08/14/18 Range/Units 08:00 08:48 WBC (4.0-11.0) K/uL RBC (4.50-5.90) M/uL Hgb (13.0-17.0) g/dL Hct (38.0-50.0) % MCV (80.0-98.0) fL MCH (27.0-32.0) pg MCHC (31.0-37.0) g/dL RDW Std Deviation (28.0-62.0) fl RDW Coeff of Isael (11.0-15.0) % Plt Count (150-400) K/uL MPV (7.40-12.00) fL Neut % (Auto) (48.0-80.0) % Lymph % (Auto) (16.0-40.0) % [place] % (Auto) (0.0-15.0) % Eos % (Auto) (0.0-7.0) % Baso % (Auto) (0.0-1.5) % Neut # (Auto) (1.4-5.7) K/uL Lymph # (Auto) (0.6-2.4) K/uL [place] # (Auto) (0.0-0.8) K/uL Eos # (Auto) (0.0-0.7) K/uL Baso # (Auto) (0.0-0.1) K/uL Nucleated RBC % /100WBC Nucleated RBCs # K/uL Sodium (136-148) mmol/L Potassium (3.5-5.1) mmol/L Chloride (98-107) mmol/L Carbon Dioxide (21.0-32.0) mmol/L BUN (7.0-18.0) mg/dL Creatinine (0.8-1.3) mg/dL Est Cr Clr Drug Dosing mL/min Estimated GFR (MDRD) ml/min Glucose (74-106) mg/dL Calcium (8.5-10.1) mg/dL Total Bilirubin (0.2-1.0) mg/dL AST (15-37) IU/L ALT (14-63) IU/L Alkaline Phosphatase (46-116) U/L Lactate Dehydrogenase 272 H (81-234) U/L Troponin I (0.000-0.056) ng/mL Total Protein (6.4-8.2) g/dL Albumin (3.4-5.0) g/dL Globulin (2.0-3.5) g/dL Albumin/Globulin Ratio (1.3-2.8) Lipase (73-393) U/L Urine Color YELLOW Urine Appearance CLEAR Urine pH 6.0 (5.0-8.0) Ur Specific [place] 1.015 (1.001-1.035) Urine Protein 30 (NEGATIVE) mg/dL Urine Glucose (UA) NEGATIVE (NEGATIVE) mg/dL Urine Ketones NEGATIVE (NEGATIVE) mg/dL Urine Occult Blood SMALL H (NEGATIVE) Urine Nitrite NEGATIVE (NEGATIVE) Urine Bilirubin NEGATIVE (NEGATIVE) Urine Urobilinogen 0.2 (<2.0) EU/dL Ur Leukocyte Esterase NEGATIVE (NEGATIVE) Urine RBC 1-2 (0-2/HPF) Urine WBC 0-1 (0-5/HPF) Ur Epithelial Cells RARE (NONE-FEW) Urine Bacteria RARE (NEGATIVE) Ethyl Alcohol mg/dL Meds: Medications Generic Name Dose Route Start Last Admin Trade Name Freq PRN Reason Stop Dose Admin Sodium Chloride 500 mls @ 999 mls/hr 08/14/18 08:00 08/14/18 08:22 Normal Saline IV 999 mls/hr STAT CANDICE Administration Discontinued Medications Generic Name Dose Route Start Last Admin Trade Name Mikalq PRN Reason Stop Dose Admin Albuterol/Ipratropium 3 ml 08/14/18 08:32 08/14/18 09:09 Duoneb 3.0-0.5 Mg/3 Ml NEB 08/14/18 08:33 3 ml ONETIME ONE Administration Aspirin 324 mg 08/14/18 07:53 08/14/18 08:10 Aspirin PO 08/14/18 07:54 324 mg ONETIME ONE Administration Iopamidol 100 ml 08/14/18 10:11 08/14/18 10:12 Isovue Multipack-370 (76%) IVPUSH 08/14/18 10:12 100 ml ONETIME ONE Administration Departure - Departure Time of Disposition: 11:39 Disposition: Home, Self-Care 01 Condition: Fair Clinical Impression: Pancreatitis - Discharge Information Additional Instructions: The following information is given to patients seen in the emergency department who are being discharged to home. This information is to outline your options for follow-up care. We provide all patients seen in our emergency department with a follow-up referral. The need for follow-up, as well as the timing and circumstances, are variable depending upon the specifics of your emergency department visit. If you don't have a primary care physician on staff, we will provide you with a referral. We always advise you to contact your personal physician following an emergency department visit to inform them of the circumstance of the visit and for follow-up with them and/or the need for any referrals to a consulting specialist. The emergency department will also refer you to a specialist when appropriate. This referral assures that you have the opportunity for follow-up care with a specialist. All of these measure are taken in an effort to provide you with optimal care, which includes your follow-up. Under all circumstances we always encourage you to contact your private physician who remains a resource for coordinating your care. When calling for follow-up care, please make the office aware that this follow-up is from your recent emergency room visit. If for any reason you are refused follow-up, please contact the [facility] emergency department at and asked to speak to the emergency department charge nurse. - My Orders Last 24 Hours: My Active Orders 08/14/18 07:53 EKG Documentation Completion [RC] STAT 08/14/18 08:00 Sodium Chloride 0.9% [Normal Saline] 500 ml IV STAT 08/14/18 08:32 RT Aerosol Therapy [RC] ASDIRECTED - Assessment/Plan Last 24 Hours: My Active Orders 08/14/18 07:53 EKG Documentation Completion [RC] STAT 08/14/18 08:00 Sodium Chloride 0.9% [Normal Saline] 500 ml IV STAT 08/14/18 08:32 RT Aerosol Therapy [RC] ASDIRECTED
[2018-08-14] MEDS ORDERED: Sodium Chloride 0.9% 500 ML IV SCH (08:00)
[2018-08-14] MEDS ORDERED: Albuterol/Ipratropium 3.0-0.5 MG/3 ML Neb Soln NEB ONE (08:32)
[2018-08-14 08:41] LABS: CHLORIDE,CL 104 mmol/L (98-107); SODIUM,NA 138 mmol/L (136-148)
--- NOTE | 2018-08-14 08:46 | CR ---
EXAMINATION: Portable chest radiograph. HISTORY: Pain. FINDINGS: The trachea is midline. The cardiomediastinal silhouette is within normal limits. No focal consolidat ion. Trace pleural effusions not excluded. Osseous structures appear unremarkable. IMPRESSION: 1. Trace bilateral pleural effusions not excluded. Otherwise no acute cardiopulmonary finding.
[2018-08-14] MEDS ORDERED: Iopamidol 755 MG/ML 500 ML Multipack Bottle IVPUSH ONE (10:11)
--- NOTE | 2018-08-14 10:29 | CT ---
CT of the abdomen and pelvis with contrast. HISTORY: Pain TECHNIQUE: Axial CT images were obtained of the abdomen and pelvis following administration of 100 mL of Isovue-370 in the left and without complication. Coronal and sagittal reconstructions obtained. FINDINGS: The lung bases are clear, no pleural effusion. Mild dependent atelectasis. Coronary artery calcificat ions/coronary stents noted. The liver, gallbladder, and spleen appear normal. Stable nodular thickening of the adrenal glands. Th e pancreas is grossly unremarkable. No bulky retroperitoneal lymphadenopathy or abdominal ascites. The kidneys enhance and function symmetrically without evidence of obstructive uropathy. Mildly promi nent ureters bilaterally, significantly changed. The large and small bowel are normal in caliber without evidence of obstruction. Moderate colonic div erticulosis without evidence of diverticulitis. The appendix is normal. No pelvic lymphadenopathy or free pelvic fluid. The urinary bladder is normal. Penile implant reservoir noted within the left ingu inal region. Multiple clips noted within the pelvic region. No suspicious osseous abnormalities identified. Mild degenerative changes within the lumbar spine. IMPRESSION: 1. No acute findings noted within the abdomen or pelvis. 2. Moderate diverticulosis without evidence of diverticulitis. 3. No definitive evidence of pancreatitis.
[2018-08-14 12:27] VITALS: BP 140/79
== END 2018-08-14 11:54 | disposition home or self-care (01) ==
LOC: MW.ED 07:51
DX: K85.90 Acute pancreatitis without necrosis or infection, unspecified (principal); I10 Essential (primary) hypertension; E11.9 Type 2 diabetes mellitus without complications; Z79.84 Long term (current) use of oral hypoglycemic drugs; Z79.82 Long term (current) use of aspirin; Z79.899 Other long term (current) drug therapy
CPT/HCPCS: 71045; 74177; 80053; 81001; 83615; 83690; 84484; 85025; 93005; 94640; 96360; 99285; A9270; G0480; J7040; Q9967; J7620-GY

== ENCOUNTER 2019-04-01 15:35 | Emergency (ER) | payer MEDICARE, OTHER ==
--- NOTE | 2019-04-01 16:09 | EDM.PDOC ---
ED HPI GENERAL MEDICAL PROBLEM - General Chief Complaint: Lower Extremity Injury/Pain Stated Complaint: SWELLING IN FEET Time Seen by Provider: 04/01/19 15:46 Source of Information: Reports: Group Home Records History Limitations: Reports: No Limitations - History of Present Illness INITIAL COMMENTS - FREE TEXT/NARRATIVE: History of present illness: []Patient noticed red dots on both his legs today. He has chronic leg swelling and recently traveled from [place] by air to [place] and arriving back home to [place] by train on March 21. Denies any shortness of breath, chest pain, fevers, chills, nausea, vomiting or diarrhea. Review of systems: As per history of present illness and below otherwise all systems reviewed and negative. Past medical history: As per history of present illness and as reviewed below otherwise noncontributory. Surgical history: As per history of present illness and as reviewed below otherwise noncontributory. Social history: No reported history of drug or alcohol abuse. Family history: As per history of present illness and as reviewed below otherwise noncontributory. Physical exam: General: Well developed, well nourished in NAD HEENT: Atraumatic, normocephalic, pupils reactive, negative for conjunctival pallor or scleral icterus, mucous membranes moist, throat clear, neck supple, nontender, trachea midline. Lungs: Clear to auscultation, breath sounds equal bilaterally, chest nontender. Heart: S1S2, regular, negative for clicks, rubs, or JVD. Abdomen: NABS, Soft, nondistended, nontender. Negative for masses or hepatosplenomegaly. Negative for costovertebral tenderness. Pelvis: Stable nontender. Genitourinary: Deferred. Rectal: Deferred. Extremities: Bilateral edema with erythematous blanching lesions, negative for cords or calf pain. Neurovascular unremarkable. Neuro: Awake, alert, oriented. Cranial nerves II through XII unremarkable. Cerebellum unremarkable. Motor and sensory unremarkable throughout. Exam nonfocal. Skin:warm and dry Diagnostics: Doppler ultrasound negative for DVT bilaterally EDC elevated white count, chemistry, BNP Therapeutics: Ceftriaxone IV ED Course: Stable Impression: Bilateral lower leg cellulitis, uncontrolled HTN-asymptomatic Prescriptions: Bactrim Plan: Continue regular meds, follow up with primary care return if symptoms worsen or change Definitive disposition and diagnosis as appropriate pending reevaluation and review of above. bilaeral lower leg Pain Score (Numeric/FACES): 2 - Related Data Allergies Allergy/AdvReac Type Severity Reaction Status Date / Time No Known Allergies Allergy Verified 04/01/19 15:51 Home Meds: Home Meds Losartan Potassium 100 mg PO DAILY 03/28/16 [History] metFORMIN HCl [Metformin HCl] 1,000 mg PO BIDMEALS 03/28/16 [History] Nitroglycerin [IJP: Nitroglycerin] 0.4 mg SL Q5M PRN #6 tablet, sublingual 11/01 [Rx] Carvedilol [Coreg] 6.25 mg PO BID 12/09/17 [History] Diltiazem HCl [Cartia Xt] 120 mg PO DAILY 12/09/17 [History] LORazepam 1 mg PO Q6HR PRN 12/09/17 [History] Aspirin [Halfprin] 81 mg PO BID 08/14/18 [History] Gabapentin [Neurontin] 1 tab PO BID 08/14/18 [History] Rivaroxaban [Xarelto] 20 mg PO BID 04/01/19 [History] Sulfamethoxazole/Trimethoprim [Bactrim Ds Tablet] 1 each PO BID #20 tablet 04/01 [Rx] Past Medical History - Past Health History Medical/Surgical History: Denies Medical/Surgical History HEENT History: Reports: Impaired Vision Cardiovascular History: Reports: Afib, Arrhythmia, Hypertension, Stents Respiratory History: Reports: Pneumonia, Recurrent Gastrointestinal History: Reports: Diverticulosis Genitourinary History: Reports: Prostate Disorder Musculoskeletal History: Reports: None Neurological History: Reports: None Psychiatric History: Reports: Anxiety Endocrine/Metabolic History: Reports: Diabetes, Type II Hematologic History: Reports: None Immunologic History: Reports: None Oncologic (Cancer) History: Reports: Prostate Dermatologic History: Reports: None - Infectious Disease History Infectious Disease History: Reports: Chicken Pox, Measles - Past Surgical History HEENT Surgical History: Reports: None Cardiovascular Surgical History: Reports: None Respiratory Surgical History: Reports: None GI Surgical History: Reports: None Male Surgical History: Reports: Prostatectomy Endocrine Surgical History: Reports: None Neurological Surgical History: Reports: None Musculoskeletal Surgical History: Reports: None Oncologic Surgical History: Reports: None Dermatological Surgical History: Reports: None Social & Family History - Family History Family Medical History: Noncontributory Cardiac: Reports: Hypertension Endocrine/Metabolic: Reports: Diabetes, type II - Tobacco Use Smoking Status *Q: Never Smoker Second Hand Smoke Exposure: No - Caffeine Use Caffeine Use: Reports: Coffee Caffeine Use Comment: 2 cups daily - Recreational Drug Use Recreational Drug Use: No Review of Systems - Review of Systems Review Of Systems: ROS reveals no pertinent complaints other than HPI. ED EXAM, GENERAL - Physical Exam Exam: See Below (History of present illness) Course - Vital Signs Last Recorded V/S: Last Vital Signs Temp 97.4 F 04/01/19 15:48 Pulse 71 04/01/19 18:09 Resp 15 04/01/19 18:09 BP 207/90 H 04/01/19 18:09 Pulse Ox 95 04/01/19 18:09 - Orders/Labs/Meds Orders: Active Orders 24 hr Category Date Time Status EKG 12 Lead [EKG Documentation Completion] [RC] STAT Care 04/01/19 16:06 Active Sodium Chloride 0.9% [Saline Flush] Med 04/01/19 16:10 Active 10 ml FLUSH ASDIRECTED PRN Sodium Chloride 0.9% [Saline Flush] Med 04/01/19 16:10 Active 2.5 ml FLUSH ASDIRECTED PRN Saline Lock Insert [OM.PC] Stat Oth 04/01/19 16:10 Ordered Medication Orders Sodium Chloride (Saline Flush) 10 ml FLUSH ASDIRECTED PRN PRN Reason: Keep Vein Open Sodium Chloride (Saline Flush) 2.5 ml FLUSH ASDIRECTED PRN PRN Reason: Keep Vein Open Labs: Laboratory Tests 04/01/19 04/01/19 04/01/19 Range/Units 16:48 16:48 16:48 WBC 14.40 H (4.0-11.0) K/uL RBC 4.61 (4.50-5.90) M/uL Hgb 12.9 L (13.0-17.0) g/dL Hct 40.5 (38.0-50.0) % MCV 87.9 (80.0-98.0) fL MCH 28.0 (27.0-32.0) pg MCHC 31.9 (31.0-37.0) g/dL RDW Std Deviation 49.2 (28.0-62.0) fl RDW Coeff of Isael 15 (11.0-15.0) % Plt Count 340 (150-400) K/uL MPV 9.30 (7.40-12.00) fL Neut % (Auto) 80.0 (48.0-80.0) % Lymph % (Auto) 10.8 L (16.0-40.0) % Craig % (Auto) 7.2 (0.0-15.0) % Eos % (Auto) 1.8 (0.0-7.0) % Baso % (Auto) 0.2 (0.0-1.5) % Neut # (Auto) 11.5 H (1.4-5.7) K/uL Lymph # (Auto) 1.6 (0.6-2.4) K/uL Craig # (Auto) 1.0 H (0.0-0.8) K/uL Eos # (Auto) 0.3 (0.0-0.7) K/uL Baso # (Auto) 0.0 (0.0-0.1) K/uL Nucleated RBC % 0.0 /100WBC Nucleated RBCs # 0 K/uL Sodium 143 (136-148) mmol/L Potassium 3.3 L (3.5-5.1) mmol/L Chloride 105 (98-107) mmol/L Carbon Dioxide 26.6 (21.0-32.0) mmol/L BUN 17 (7.0-18.0) mg/dL Creatinine 1.3 (0.8-1.3) mg/dL Est Cr Clr Drug Dosing 53.90 mL/min Estimated GFR (MDRD) 54.1 ml/min Glucose 93 (74-106) mg/dL Calcium 8.9 (8.5-10.1) mg/dL Total Bilirubin 0.5 (0.2-1.0) mg/dL AST 17 (15-37) IU/L ALT 18 (14-63) IU/L Alkaline Phosphatase 43 L (46-116) U/L B-Natriuretic Peptide 154 H (<100) PG/ML Total Protein 7.3 (6.4-8.2) g/dL Albumin 3.6 (3.4-5.0) g/dL Globulin 3.7 (2.6-4.0) g/dL Albumin/Globulin Ratio 1.0 (0.9-1.6) Meds: Medications Generic Name Dose Route Start Last Admin Trade Name Freq PRN Reason Stop Dose Admin Sodium Chloride 10 ml 04/01/19 16:10 Saline Flush FLUSH ASDIRECTED PRN Keep Vein Open Sodium Chloride 2.5 ml 04/01/19 16:10 Saline Flush FLUSH ASDIRECTED PRN Keep Vein Open Discontinued Medications Generic Name Dose Route Start Last Admin Trade Name Freq PRN Reason Stop Dose Admin Ceftriaxone Sodium/Dextrose 1 50 mls @ 100 mls/hr 04/01/19 17:52 04/01/19 18: 03 gm/ Premix IV 04/01/19 18:21 100 mls/hr ONETIME ONE Administration Departure - Departure Time of Disposition: 18:40 Disposition: Home, Self-Care 01 Condition: Good Clinical Impression: Bilateral lower leg cellulitis - Discharge Information *PRESCRIPTION DRUG MONITORING PROGRAM REVIEWED*: No *COPY OF PRESCRIPTION DRUG MONITORING REPORT IN PATIENT BRIGIDO: No Prescriptions: Sulfamethoxazole/Trimethoprim [Bactrim Ds Tablet] 1 each PO BID #20 tablet Referrals: PCP,Unknown [Primary Care Provider] - Forms: ED Department Discharge Additional Instructions: The following information is given to patients seen in the emergency department who are being discharged to home. This information is to outline your options for follow-up care. We provide all patients seen in our emergency department with a follow-up referral. The need for follow-up, as well as the timing and circumstances, are variable depending upon the specifics of your emergency department visit. If you don't have a primary care physician on staff, we will provide you with a referral. We always advise you to contact your personal physician following an emergency department visit to inform them of the circumstance of the visit and for follow-up with them and/or the need for any referrals to a consulting specialist. The emergency department will also refer you to a specialist when appropriate. This referral assures that you have the opportunity for follow-up care with a specialist. All of these measure are taken in an effort to provide you with optimal care, which includes your follow-up. Under all circumstances we always encourage you to contact your private physician who remains a resource for coordinating your care. When calling for follow-up care, please make the office aware that this follow-up is from your recent emergency room visit. If for any reason you are refused follow-up, please contact the [facility] at and asked to speak to the emergency department charge nurse. Take meds as directed, follow up with your primary care physician, return to ER if symptoms worsen or change. [facility] Pending sale to [facility] [place] [id number] - My Orders Last 24 Hours: My Active Orders 04/01/19 16:06 EKG 12 Lead [EKG Documentation Completion] [RC] STAT 04/01/19 16:10 Sodium Chloride 0.9% [Saline Flush] 10 ml FLUSH ASDIRECTED PRN Sodium Chloride 0.9% [Saline Flush] 2.5 ml FLUSH ASDIRECTED PRN Saline Lock Insert [OM.PC] Stat - Assessment/Plan Last 24 Hours: My Active Orders 04/01/19 16:06 EKG 12 Lead [EKG Documentation Completion] [RC] STAT 04/01/19 16:10 Sodium Chloride 0.9% [Saline Flush] 10 ml FLUSH ASDIRECTED PRN Sodium Chloride 0.9% [Saline Flush] 2.5 ml FLUSH ASDIRECTED PRN Saline Lock Insert [OM.PC] Stat
[2019-04-01] MEDS ORDERED: Sodium Chloride 0.9% 2.5 ML Syringe FLUSH PRN (16:10)
[2019-04-01] MEDS ORDERED: Sodium Chloride 0.9% 10 ML Syringe FLUSH PRN (16:10)
--- NOTE | 2019-04-01 17:13 | US ---
INDICATION: Bilateral leg swelling x 2 months TECHNIQUE: Ultrasound venous duplex lower extremity bilateral. Compression venous exam was performed using diego scale, color Doppler, and spectral Doppler imaging. COMPARISON: None. FINDINGS: Sonographic imaging demonstrates the common femoral, deep femoral, superficial femoral, popliteal, posterior tibial and greater saphenous veins to be fully compressible with normal color Doppler blood flow in both lower extremities. IMPRESSION: Normal bilateral lower extremity venous ultrasound, no sign of deep venous thrombosis. Dictated by: Andrez Padgett MD @ 04/01/2019 17:12:14 (Electronically Signed)
[2019-04-01] MEDS ORDERED: cefTRIAXone 1 GM in Premix Bag 1 BAG IV ONE (17:52)
[2019-04-01 18:09] VITALS: BP 207/90
== END 2019-04-01 18:50 | disposition home or self-care (01) ==
LOC: MW.ED 15:35
DX: L03.116 Cellulitis of left lower limb (principal); L03.115 Cellulitis of right lower limb; I10 Essential (primary) hypertension; E11.9 Type 2 diabetes mellitus without complications; F41.9 Anxiety disorder, unspecified; Z79.82 Long term (current) use of aspirin; Z79.84 Long term (current) use of oral hypoglycemic drugs; Z79.899 Other long term (current) drug therapy; Z95.5 Presence of coronary angioplasty implant and graft
CPT/HCPCS: 36415; 80053; 83880; 85025; 93005; 93970; 96365; 99284; A4217; J0696

== ENCOUNTER 2019-10-09 07:59 | Day surgery (SDC) | payer MEDICARE, OTHER ==
[~2019-10-09 07:59] MED LIST: Lactated Ringers 1,000 ML IV SCH
--- NOTE | 2019-10-09 09:09 | PCM.PREANE ---
Preanesthetic Assessment - Anesthesia/Transfusion/Family Hx Anesthesia History: Prior Anesthesia Without Reaction Other Type of Anesthesia Reaction Comment: "hard to wake up after prostate surgery" Family History of Anesthesia Reaction: No Transfusion History: Prior Transfusion Without Reaction Intubation History: Unknown - Review of Systems General: No Symptoms Pulmonary: No Symptoms Cardiovascular: No Symptoms Gastrointestinal: No Symptoms, Other (h/o colon polyp 7 years ago) Neurological: No Symptoms Other: Reports: None - Physical Assessment NPO Status Date: 10/08/19 NPO Status Time: 20:00 Vital Signs: Last Vital Signs Temp 36.1 C 10/09/19 08:30 Pulse 86 10/09/19 08:30 Resp 20 10/09/19 08:30 BP 189/101 H 10/09/19 08:30 Pulse Ox 96 10/09/19 08:30 Height: 5 ft 11 in Weight: 133.356 kg ASA Class: 3 Mental Status: Alert & Oriented x3 Airway Class: Mallampati = 2 Dentition: Reports: Normal Dentition Thyro-Mental Finger Breadths: 3 Mouth Opening Finger Breadths: 3 ROM/Head Extension: Limited/Partial Lungs: Clear to Auscultation, Normal Respiratory Effort Cardiovascular: Regular Rate, Irregular Rhythm - Allergies Allergies/Adverse Reactions: Allergies Allergy/AdvReac Type Severity Reaction Status Date / Time lisinopril Allergy Cannot Verified 10/04/19 08:26 Remember - Blood Blood Available: No - Anesthesia Plan Pre-Op Medication Ordered: None - Acknowledgements Anesthesia Type Planned: MAC Pt an Appropriate Candidate for the Planned Anesthesia: Yes Alternatives and Risks of Anesthesia Discussed w Pt/Guardian: Yes Pt/Guardian Understands and Agrees with Anesthesia Plan: Yes PreAnesthesia Questionnaire - Past Health History Medical/Surgical History: Denies Medical/Surgical History HEENT History: Reports: Impaired Vision Other HEENT History: wears glasses Cardiovascular History: Reports: Afib, Arrhythmia, CAD, High Cholesterol, Hypertension, [place] (NSTEM '17), Stents Other Cardiovascular History: last EF 60% Respiratory History: Reports: Pneumonia, Recurrent, Sleep Apnea Gastrointestinal History: Reports: Colon Polyp, Diverticulosis Genitourinary History: Reports: Prostate Disorder, Other (See Below) (chronic renal insuff.) Musculoskeletal History: Reports: None Neurological History: Reports: Neuropathy, Diabetic Psychiatric History: Reports: Anxiety Endocrine/Metabolic History: Reports: Diabetes, Type II, Obesity/BMI 30+ (BMI 41 ) Hematologic History: Reports: None Other Hematologic History: unsure-thinks he may have had transfusion with prostate surgery Immunologic History: Reports: None Oncologic (Cancer) History: Reports: Prostate (s/p radical prostatectomy) Dermatologic History: Reports: None - Infectious Disease History Infectious Disease History: Reports: Chicken Pox, Measles - Past Surgical History Head Surgeries/Procedures: Reports: None HEENT Surgical History: Reports: None Cardiovascular Surgical History: Reports: Other (See Below) (stent 2017) Respiratory Surgical History: Reports: None GI Surgical History: Reports: Colonoscopy Male Surgical History: Reports: Prostatectomy Other Male Surgeries/Procedures: Ureter stent removal today; has urge to void but only has been able to dribble some blood. Endocrine Surgical History: Reports: None Neurological Surgical History: Reports: None Musculoskeletal Surgical History: Reports: None Oncologic Surgical History: Reports: None Other Oncologic Surgeries/Procedures: Radical Prostatectomy Dermatological Surgical History: Reports: None - SUBSTANCE USE Smoking Status *Q: Never Smoker Recreational Drug Use History: No - HOME MEDS Home Medications: Home Meds Losartan Potassium 100 mg PO DAILY 03/28/16 [History] metFORMIN HCl [Metformin HCl] 1,000 mg PO BIDMEALS 03/28/16 [History] Nitroglycerin [IJP: Nitroglycerin] 0.4 mg SL Q5M PRN #6 tablet, sublingual 11/01 [Rx] Diltiazem HCl [Cartia Xt] 120 mg PO DAILY 12/09/17 [History] Aspirin [Halfprin] 81 mg PO BID 08/14/18 [History] Apixaban [Eliquis] 5 mg PO BID 10/04/19 [History] Cholestyramine/Sucrose [Cholestyramine] 2 packet PO BID 10/04/19 [History] Furosemide 40 mg PO DAILY 10/04/19 [History] [place]-3 Acid Ethyl Esters 2 tab PO BID 10/04/19 [History] Potassium Chloride 10 meq PO DAILY 10/04/19 [History] carvediloL [Carvedilol] 25 mg PO DAILY 10/04/19 [History] - CURRENT (IN HOUSE) MEDS Current Meds: Current Medications Lactated Ringer's (Ringers, Lactated) 1,000 mls @ 125 mls/hr IV ASDIRECTED CANDICE
[2019-10-09] MEDS ORDERED: Midazolam 1 MG/ML 2 ML SDV ONE (09:55)
[2019-10-09] MEDS ORDERED: fentaNYL 100 MCG/2 ML SDV ONE (09:55)
[2019-10-09] MEDS ORDERED: Propofol 200 MG/20 ML SDV ONE (09:56)
--- NOTE | 2019-10-09 11:13 | PCM.OPNOTE ---
- General Post-Op/Procedure Note Date of Surgery/Procedure: 10/09/19 Operative Procedure(s): colonoscopy w snare polypectomy Findings: dict [id number] Pre Op Diagnosis: hx colon polyp Post-Op Diagnosis: Same Anesthesia Technique: Moderate Sedation Primary Surgeon: Ruy Walsh Pathology: polyp at 50cm when scope went, polyp at 30cm when scope went in likely lost Complications: None Condition: Good
--- NOTE | 2019-10-09 11:27 | PCM.POSTAN ---
POST ANESTHESIA ASSESSMENT - MENTAL STATUS Mental Status: Alert, Oriented - VITAL SIGNS Vital Signs: Last Vital Signs Temp 36.1 C 10/09/19 08:30 Pulse 78 10/09/19 11:21 Resp 15 10/09/19 11:21 BP 195/81 H 10/09/19 11:21 Pulse Ox 96 10/09/19 11:21 - RESPIRATORY Respiratory Status: Respiratory Rate WNL, Airway Patent, O2 Saturation Stable - CARDIOVASCULAR CV Status: Pulse Rate WNL, Blood Pressure Stable - GASTROINTESTINAL GI Status: No Symptoms - PAIN Pain Score: 0 - POST OP HYDRATION Hydration Status: Adequate & Stable - OBSERVATIONS Free Text/Narrative:: No anesthesia problems
[2019-10-09 11:47] VITALS: BP 205/96; PULSE 85
--- NOTE | 2019-10-09 11:59 | PCM48HPAN ---
Post Anesthesia Note - EVALUATION WITHIN 48HRS OF ANESTHETIC Vital Signs in Normal Range: Yes Patient Participated in Evaluation: Yes Respiratory Function Stable: Yes Airway Patent: Yes Cardiovascular Function Stable: Yes Hydration Status Stable: Yes Pain Control Satisfactory: Yes Nausea and Vomiting Control Satisfactory: Yes Mental Status Recovered: Yes Vital Signs: Last Vital Signs Temp 36.2 C 10/09/19 11:36 Pulse 85 10/09/19 11:36 Resp 18 10/09/19 11:36 BP 205/96 H 10/09/19 11:36 Pulse Ox 96 10/09/19 11:36 - COMMENTS/OBSERVATIONS Free Text/Narrative:: No anesthesia problems
--- NOTE | 2019-10-09 12:40 | OR ---
SURGEON: Ruy Walsh MD DATE OF PROCEDURE: 10/09/2019 PREOPERATIVE DIAGNOSIS: History of colon polyp. POSTOPERATIVE DIAGNOSES: Colon polyp and diverticulosis. PROCEDURE PERFORMED: Colonoscopy with snare polypectomy. DESCRIPTION OF PROCEDURE: The patient was taken to the endoscopy room. A time out was called, patient identified, and procedure identified. Diprivan was then administrated. Patient went from awake to sleep, hearing doctor talking or door closing is normal. Perineum inspection and digital examination were then performed. A well- lubricated colonoscope was gently inserted through the rectum, advanced past the rectosigmoid junction, the descending colon, splenic flexure, transverse colon, hepatic flexure, ascending colon, arrived to the cecum. Cecum was identified as dictated in the finding. Then the scope was carefully withdrawn while attention was paid to the mucosal surface for any abnormality. Air will be sucked out during the scope withdrawal. At the rectum, retroflexed to examine any rectal diseases, fistula or hemorrhoids. During mucosal examination, abnormality or polyp encountered. Using snare equipment, the abnormality or the polyp was then snared off using electrocautery. The patient tolerated procedure well. There were no intraoperative complications, and Dr. Walsh was present throughout the whole procedure. FINDINGS: 1. The patient is easily sedated with ENCAPSULATOR and Diprivan, the patient is soundly snoring. 2. Bowel prep is average with large amount of liquid stool and requiring large amount of irrigation and some stool ball too. 3. Colon is rather straightforward and cecum indicated by ileocecal fold, one- to-one indentation, appendiceal orifice. Light emittance is not observed and ScopeGuide is pointing south. Mucosa examined upon scope pulling out with constant irrigation. 4. The patient has pretty significant diverticulosis. No signs or symptoms of diverticulitis. Extends from left colon proximally to almost mid transverse colon. 5. The patient has 2 small polyps and first one is at 30 cm when the scope go in, second one is at 50 cm when the scope go in. The first one lost during scope and the second was captured and sent for pathology. Other than that, no other mass, growth, inflammation, stricture, ulceration, AV malformation, bleeding, none of those observed. The patient has mild internal hemorrhoids and mild external hemorrhoids. The patient would benefit from repeat colonoscopy on an as-needed basis. As the patient will turn 77 after 3 years and people at the age of 75 to 80's on a clinical diagnosis only, probably would still benefit to have one done at age 77. SHANTAL / CHRIS /[id number]
== END 2019-10-09 12:00 | disposition home or self-care (01) ==
LOC: MW.SDS 07:59
PROVIDERS: ATTEND Surgery
DX: Z12.11 Encounter for screening for malignant neoplasm of colon (principal); D12.5 Benign neoplasm of sigmoid colon; K57.30 Diverticulosis of large intestine without perforation or abscess without bleeding; K64.8 Other hemorrhoids; K64.4 Residual hemorrhoidal skin tags; I48.19 Other persistent atrial fibrillation; I25.10 Atherosclerotic heart disease of native coronary artery without angina pectoris; I25.2 Old myocardial infarction; I13.0 Hypertensive heart and chronic kidney disease with heart failure and stage 1 through stage 4 chronic kidney disease, or unspecified chronic kidney disease; E11.22 Type 2 diabetes mellitus with diabetic chronic kidney disease; N18.9 Chronic kidney disease, unspecified; I50.9 Heart failure, unspecified; E11.42 Type 2 diabetes mellitus with diabetic polyneuropathy; E78.5 Hyperlipidemia, unspecified; E66.01 Morbid (severe) obesity due to excess calories; K58.9 Irritable bowel syndrome, unspecified; F41.9 Anxiety disorder, unspecified; G47.30 Sleep apnea, unspecified; Z88.8 Allergy status to other drugs, medicaments and biological substances; Z68.41 Body mass index [BMI] 40.0-44.9, adult; Z95.5 Presence of coronary angioplasty implant and graft; Z85.46 Personal history of malignant neoplasm of prostate; Z86.010 Personal history of colon polyps; Z79.84 Long term (current) use of oral hypoglycemic drugs; Z79.82 Long term (current) use of aspirin; Z79.01 Long term (current) use of anticoagulants; Z79.899 Other long term (current) drug therapy
CPT/HCPCS: 45385; 88305; J2250; J2704; J3010; J7120

== ENCOUNTER 2020-03-10 11:45 | Emergency (ER) | payer MEDICARE, OTHER ==
[2020-03-10] MEDS ORDERED: Sodium Chloride 0.9% 1,000 ML IV ONE (12:03)
--- NOTE | 2020-03-10 12:09 | EDM.PDOC ---
ED HPI GENERAL MEDICAL PROBLEM - General Chief Complaint: General Stated Complaint: WEAKNESS,SWEATING Time Seen by Provider: 03/10/20 12:04 Source of Information: Reports: Patient History Limitations: Reports: No Limitations - History of Present Illness INITIAL COMMENTS - FREE TEXT/NARRATIVE: Patient is a 74-year-old male and states about an hour prior to presentation he was looking patient got blurry and he became very weak. Patient states he almost passed out and decided to come to the emergency room. Patient states this lasted about 30 minutes and he still feels weak now. Patient has a history of cardiac disease. And vertigo and A. fib. Denies chest pain. Onset: Today Duration: Hour(s): Location: Reports: Head Severity: Severe Improves with: Reports: None Worsens with: Reports: None Context: Reports: Activity Associated Symptoms: Reports: No Other Symptoms - Related Data Allergies Allergy/AdvReac Type Severity Reaction Status Date / Time lisinopril Allergy Cannot Verified 03/10/20 11:54 Remember Home Meds: Home Meds Losartan Potassium 100 mg PO DAILY 03/28/16 [History] metFORMIN HCl [Metformin HCl] 1,000 mg PO BIDMEALS 03/28/16 [History] Nitroglycerin [IJP: Nitroglycerin] 0.4 mg SL Q5M PRN #6 tablet, sublingual 11/01 [Rx] Diltiazem HCl [Cartia Xt] 120 mg PO DAILY 12/09/17 [History] Aspirin [Halfprin] 81 mg PO BID 08/14/18 [History] Apixaban [Eliquis] 5 mg PO BID 10/04/19 [History] Cholestyramine/Sucrose [Cholestyramine] 2 packet PO BID 10/04/19 [History] Furosemide 40 mg PO DAILY 10/04/19 [History] [place]-3 Acid Ethyl Esters 2 tab PO BID 10/04/19 [History] Potassium Chloride 10 meq PO DAILY 10/04/19 [History] carvediloL [Carvedilol] 25 mg PO DAILY 10/04/19 [History] Past Medical History - Past Health History Medical/Surgical History: Denies Medical/Surgical History HEENT History: Reports: Impaired Vision Other HEENT History: wears glasses Cardiovascular History: Reports: Afib, Arrhythmia, CAD, High Cholesterol, Hypertension, [place], Stents Other Cardiovascular History: last EF 60% Respiratory History: Reports: Pneumonia, Recurrent, Sleep Apnea Gastrointestinal History: Reports: Colon Polyp, Diverticulosis Genitourinary History: Reports: Prostate Disorder, Other (See Below) Musculoskeletal History: Reports: None Neurological History: Reports: Neuropathy, Diabetic Psychiatric History: Reports: Anxiety Endocrine/Metabolic History: Reports: Diabetes, Type II Hematologic History: Reports: None Other Hematologic History: unsure-thinks he may have had transfusion with prostate surgery Immunologic History: Reports: None Oncologic (Cancer) History: Reports: Prostate Dermatologic History: Reports: None - Infectious Disease History Infectious Disease History: Reports: Chicken Pox, Measles, Mumps - Past Surgical History Head Surgeries/Procedures: Reports: None HEENT Surgical History: Reports: None Cardiovascular Surgical History: Reports: Other (See Below) Respiratory Surgical History: Reports: None GI Surgical History: Reports: None Male Surgical History: Reports: Prostatectomy Neurological Surgical History: Reports: None Musculoskeletal Surgical History: Reports: None Oncologic Surgical History: Reports: None Other Oncologic Surgeries/Procedures: Radical Prostatectomy Dermatological Surgical History: Reports: None Social & Family History - Family History Family Medical History: Noncontributory Cardiac: Reports: Hypertension Endocrine/Metabolic: Reports: Diabetes, type II - Tobacco Use Smoking Status *Q: Never Smoker - Caffeine Use Caffeine Use: Reports: Coffee Caffeine Use Comment: 2 cups daily - Recreational Drug Use Recreational Drug Use: No ED ROS GENERAL - Review of Systems Review Of Systems: See Below Constitutional: Reports: No Symptoms HEENT: Reports: No Symptoms Respiratory: Reports: No Symptoms Cardiovascular: Reports: No Symptoms, Lightheadedness Endocrine: Reports: No Symptoms GI/Abdominal: Reports: No Symptoms : Reports: No Symptoms Musculoskeletal: Reports: No Symptoms Skin: Reports: No Symptoms Neurological: Reports: Dizziness Psychiatric: Reports: No Symptoms Hematologic/Lymphatic: Reports: No Symptoms Immunologic: Reports: No Symptoms ED EXAM, GENERAL - Physical Exam Exam: See Below Exam Limited By: No Limitations General Appearance: Alert, WD/WN, No Apparent Distress Eye Exam: Bilateral Eye: Normal Fundi, Normal Inspection Ears: Normal External Exam, Normal Canal, Hearing Grossly Normal, Normal TMs Ear Exam: Bilateral Ear: Auricle Normal, Canal Normal Nose: Normal Inspection, Normal Mucosa, No Blood Throat/Mouth: Normal Inspection, Normal Lips, Normal Teeth, Normal Oropharynx, Normal Voice Head: Atraumatic, Normocephalic Neck: Normal Inspection, Supple Respiratory/Chest: No Respiratory Distress, Lungs Clear, Normal Breath Sounds, No Accessory Muscle Use, Chest Non-Tender Cardiovascular: Normal Peripheral Pulses, Regular Rate, Rhythm, No JVD, No Murmur GI/Abdominal: Normal Bowel Sounds, Soft, Non-Tender, No Distention, No Abnormal Bruit (Male) Exam: Deferred Rectal (Males) Exam: Deferred Back Exam: Normal Inspection, Full Range of Motion Extremities: Normal Inspection, Normal Range of Motion Neurological: Alert, Oriented, CN II-XII Intact, Normal Reflexes, No Motor/ Sensory Deficits Psychiatric: Normal Affect, Normal Mood Skin Exam: Warm, Dry, Intact, Normal Color, No Rash EKG INTERPRETATION Rhythm: A-Fib [place]: Normal QRS: Normal ST-T: Normal Course - Vital Signs Text/Narrative:: This 74-year-old gentleman presents to the emergency room with about 30 minutes of diaphoresis difficulty with his vision and near syncope prior to prep presented to the hospital. Patient status post stent placement anywhere he had [place]. Patient also has hypertension and is on lisinopril. Patient denies chest pain or shortness of breath but feels very weak. Will go to [place] for continuation of care. Patient has positive cardiac enzymes troponin 0.16. Patient's EKG shows A. fib. Patient exam is completely normal Assesment : None acute ST segment elevation [place] with elevated cardiac enzymes Plan patient needs to follow-up/be transferred to [place] for continuation of care Discussed the case with the data examination clerk at [facility] who has accepted the patient. I have discussed the case with Dr. Sesay the emergency room patient will be going by ground at this time patient is very stable for transfer. Last Recorded V/S: Last Vital Signs Temp 96.7 F L 03/10/20 11:54 Pulse 74 03/10/20 11:54 Resp 18 03/10/20 11:54 BP 133/77 03/10/20 11:54 Pulse Ox 97 03/10/20 11:54 - Orders/Labs/Meds Orders: Active Orders 24 hr Category Date Time Status EKG 12 Lead [EKG Documentation Completion] [RC] ROUTINE Care 03/10/20 11:56 Active INR,PT,PROTHROMBIN TIME [COAG] Stat Lab 03/10/20 13:17 Ordered Labs: Laboratory Tests 03/10/20 03/10/20 Range/Units 12:15 12:15 WBC 12.13 H (4.0-11.0) K/uL RBC 4.83 (4.50-5.90) M/uL Hgb 14.0 (13.0-17.0) g/dL Hct 43.3 (38.0-50.0) % MCV 89.6 (80.0-98.0) fL MCH 29.0 (27.0-32.0) pg MCHC 32.3 (31.0-37.0) g/dL RDW Std Deviation 47.4 (28.0-62.0) fl RDW Coeff of Isael 15 (11.0-15.0) % Plt Count 359 (150-400) K/uL MPV 9.50 (7.40-12.00) fL Neut % (Auto) 79.0 (48.0-80.0) % Lymph % (Auto) 11.8 L (16.0-40.0) % [place] % (Auto) 5.9 (0.0-15.0) % Eos % (Auto) 3.1 (0.0-7.0) % Baso % (Auto) 0.2 (0.0-1.5) % Neut # (Auto) 9.6 H (1.4-5.7) K/uL Lymph # (Auto) 1.4 (0.6-2.4) K/uL [place] # (Auto) 0.7 (0.0-0.8) K/uL Eos # (Auto) 0.4 (0.0-0.7) K/uL Baso # (Auto) 0.0 (0.0-0.1) K/uL Nucleated RBC % 0.0 /100WBC Nucleated RBCs # 0 K/uL Sodium 143 (136-148) mmol/L Potassium 3.6 (3.5-5.1) mmol/L Chloride 104 (98-107) mmol/L Carbon Dioxide 25.5 (21.0-32.0) mmol/L BUN 25 H (7.0-18.0) mg/dL Creatinine 1.7 H (0.8-1.3) mg/dL Est Cr Clr Drug Dosing 41.22 mL/min Estimated GFR (MDRD) 39.7 ml/min Glucose 141 H (74-106) mg/dL Calcium 9.0 (8.5-10.1) mg/dL Total Bilirubin 0.5 (0.2-1.0) mg/dL AST 25 (15-37) IU/L ALT 31 (14-63) IU/L Alkaline Phosphatase 46 (46-116) U/L Troponin I 0.160 H* (0.000-0.056) ng/mL Total Protein 7.4 (6.4-8.2) g/dL Albumin 3.6 (3.4-5.0) g/dL Globulin 3.8 (2.6-4.0) g/dL Albumin/Globulin Ratio 0.9 (0.9-1.6) Meds: Medications Discontinued Medications Generic Name Dose Route Start Last Admin Trade Name Freq PRN Reason Stop Dose Admin Aspirin 324 mg 03/10/20 13:13 03/10/20 13:24 Aspirin PO 03/10/20 13:14 Not Given ONETIME ONE Aspirin 324 mg 03/11/20 09:00 Aspirin PO DAILY CANDICE Aspirin 324 mg 03/10/20 13:24 Aspirin PO 03/10/20 13:25 ONETIME ONE Sodium Chloride 1,000 mls @ 1,000 mls/hr 03/10/20 12:03 03/10/20 12:19 Normal Saline IV 03/10/20 13:02 1,000 mls/hr .Bolus ONE Administration Departure - Departure Time of Disposition: 13:29 Disposition: DC/Tfer to Acute Hospital 02 Condition: Good Clinical Impression: Acute non-ST segment elevation myocardial infarction (NSTEMI) following previous myocardial infarction - Discharge Information Referrals: PCP,None [Primary Care Provider] - Forms: ED Department Discharge Sepsis Event Note - Evaluation Sepsis Screening Result: No Definite Risk - Focused Exam Vital Signs: Vital Signs Temp Pulse Resp BP Pulse Ox 03/10/20 11:54 96.7 F L 74 18 133/77 97 Date Exam was Performed: 03/10/20 Time Exam was Performed: 13:28 - My Orders Last 24 Hours: My Active Orders 03/10/20 11:56 EKG 12 Lead [EKG Documentation Completion] [RC] ROUTINE 03/10/20 13:17 INR,PT,PROTHROMBIN TIME [COAG] Stat - Assessment/Plan Last 24 Hours: My Active Orders 03/10/20 11:56 EKG 12 Lead [EKG Documentation Completion] [RC] ROUTINE 03/10/20 13:17 INR,PT,PROTHROMBIN TIME [COAG] Stat
--- NOTE | 2020-03-10 12:42 | CR ---
Chest: PA view of the chest was obtained. Comparison: Prior chest x-ray of 08/14/18. Heart size and mediastinum are normal. Lungs are clear with no acute parenchymal change. Bony structures are grossly intact. Impression: 1. Nothing acute is seen on PA chest x-ray. Diagnostic code #1 This report was dictated in MDT
--- NOTE | 2020-03-10 12:42 | CT ---
Head CT Technique: Multiple axial sections through the brain were obtained. Intravenous contrast was not utilized. Comparison: Prior head CT study of 09/02/17. Findings: Ventricles along with basal cisterns and sulci over the convexities are mildly prominent. Sulci over the cerebellum are also mildly prominent. Findings are compatible with mild generalized atrophy. 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 No other abnormal parenchymal densities are seen. No evidence of intracranial hemorrhage. No midline shift or mass-effect is seen. Bone window settings were reviewed. There is moderate mucosal thickening within the left maxillary sinus. Other visualized sinuses show nothing acute. Mastoid sinuses show nothing acute. No acute calvarial finding is appreciated. Impression: 1. Mucosal thickening within the left maxillary sinus. This is an interval change from prior exam and please exclude any symptoms of acute sinusitis. 2. No acute intracranial abnormality is seen. 3. Mild atrophy is seen which is stable from prior head CT exam. Diagnostic code #3 This report was dictated in MDT
[2020-03-10 13:02] LABS: CARBON DIOXIDE,CO2 25.5 mmol/L (21.0-32.0); POTASSIUM,K 3.6 mmol/L (3.5-5.1)
[2020-03-10] MEDS ORDERED: Aspirin 325 MG Tab PO ONE (13:13)
[2020-03-10] MEDS ORDERED: Aspirin 81 MG Tab.Chew PO ONE (13:24)
[2020-03-10] MEDS ORDERED: Aspirin 81 MG Tab.Chew ONE (13:25)
[2020-03-10 14:35] VITALS: BP 138/95; PULSE 76
[2020-03-11] MEDS ORDERED: Aspirin 81 MG Tab.Chew PO SCH (09:00)
== END 2020-03-10 14:34 ==
LOC: MW.ED 11:45
DX: I21.4 Non-ST elevation (NSTEMI) myocardial infarction (principal); R74.8 Abnormal levels of other serum enzymes; I48.91 Unspecified atrial fibrillation; I25.10 Atherosclerotic heart disease of native coronary artery without angina pectoris; E78.00 Pure hypercholesterolemia, unspecified; I10 Essential (primary) hypertension; E11.40 Type 2 diabetes mellitus with diabetic neuropathy, unspecified; F41.9 Anxiety disorder, unspecified; Z79.82 Long term (current) use of aspirin; Z88.8 Allergy status to other drugs, medicaments and biological substances; Z79.01 Long term (current) use of anticoagulants; Z79.899 Other long term (current) drug therapy; Z79.84 Long term (current) use of oral hypoglycemic drugs
CPT/HCPCS: 36415; 70450; 71045; 80053; 84484; 85025; 85610; 93005; 96360; 99285; A9270; J7030; 99284

== ENCOUNTER 2020-07-23 11:27 | Observation (INO) | payer MEDICARE, OTHER ==
[2020-07-23] MEDS ORDERED: Aspirin 81 MG Tab.Chew PO ONE (11:55)
--- NOTE | 2020-07-23 11:58 | EDM.PDOC ---
ED HPI GENERAL MEDICAL PROBLEM - General Chief Complaint: Chest Pain Stated Complaint: CHEST PAIN Time Seen by Provider: 07/23/20 11:28 Source of Information: Reports: Patient History Limitations: Reports: No Limitations - History of Present Illness INITIAL COMMENTS - FREE TEXT/NARRATIVE: HISTORY AND PHYSICAL: History of present illness: Patient is a 75-year-old male who presents to the ED today with concern of episodes of chest pain over the past 2 days. Patient states he has been having [facility] chest pain that comes and goes. Patient states his last episode was 3 hours prior to arrival to the ED. Patient states he did take 3 baby aspirin when symptoms started and this helped alleviate his chest discomfort. Patient states he is not currently having any chest discomfort. Patient states he has a history of coronary artery disease and had a stent placed 3 years ago in [place]. Patient states that he has also had a history of high cholesterol and high blood pressure and chronic A. fib on anticoagulation. Patient states at this time he is not having any symptoms and is unsure if the chest pain is exertional as he has not tried. Patient denies any other symptoms or concerns. Patient denies fever, chills, shortness of breath, or cough. Denies headache, neck stiff ness, change in vision, syncope, or near syncope. Denies nausea, vomiting, abdominal pain, diarrhea, constipation, or dysuria. Has not noted any blood in urine or stool. Patient has been eating and drinking appropriately. Review of systems: As per history of present illness and below otherwise all systems reviewed and negative. Past medical history: As per history of present illness and as reviewed below otherwise noncontributory. Surgical history: As per history of present illness and as reviewed below otherwise noncontributory. Social history: See social history for further information Family history: As per history of present illness and as reviewed below otherwise n oncontributory. Physical exam: General: Patient is alert, oriented, and in no acute distress. Patient laying comfortably on exam table. HEENT: Atraumatic, normocephalic, pupils equal and reactive bilaterally, negative for conjunctival pallor or scleral icterus, mucous membranes moist, TMs normal bilaterally, throat clear, neck supple, nontender, trachea midline. No drooling or trismus noted. No meningeal signs. No hot potato voice noted. Lungs: Clear to auscultation, breath sounds equal bilaterally, chest nontender. Heart: S1S2, regular rate and rhythm without overt murmur Abdomen: Soft, nondistended, nontender. Negative for masses or hepatosplenomegaly. Negative for costovertebral tenderness. Pelvis: Stable nontender. Genitourinary: Deferred. Rectal: Deferred. Skin: Intact, warm, dry. No lesions or rashes noted. Extremities: Atraumatic, negative for cords or calf pain. Neurovascular unremarkable. Neuro: Awake, alert, oriented. Cranial nerves II through XII unremarkable. Cerebellum unremarkable. Motor and sensory unremarkable throughout. Exam nonfocal. Notes: HEART score 5. Moderate risk. Discussed patient with Dr. Guevara and accepting of admission for observation on telemetry Voices understanding and is agreeable to plan of care. Denies any further questions or concerns at this time. Diagnostics: EKG, CBC, CMP, UA, Trop, CXR, blood ketone, VBG, serum osmolality Therapeutics: ASA 81mg Impression: Chest pain r/o ACS Hyperglycemia Plan: Admission to Dr. Guevara on telemetry Definitive disposition and diagnosis as appropriate pending reevaluation and review of above. - Related Data Allergies Allergy/AdvReac Type Severity Reaction Status Date / Time lisinopril Allergy Cannot Verified 07/23/20 11:35 Remember Home Meds: Home Meds metFORMIN HCl [Metformin HCl] 1,000 mg PO BIDMEALS 03/28/16 [History] Nitroglycerin [IJP: Nitroglycerin] 0.4 mg SL Q5M PRN #6 tablet, sublingual 11/01/17 [Rx] dilTIAZem HCL [Cartia Xt] 120 mg PO DAILY 12/09/17 [History] Aspirin [Halfprin] 81 mg PO DAILY 08/14/18 [History] Apixaban [Eliquis] 5 mg PO BID 10/04/19 [History] Cholestyramine/Sucrose [Cholestyramine] 2 packet PO BID 10/04/19 [History] [place]-3 Acid Ethyl Esters 1 tab PO BID 10/04/19 [History] carvediloL [Carvedilol] 25 mg PO BID 10/04/19 [History] Chlorthalidone 1 tab PO DAILY 07/23/20 [History] Isosorbide Mononitrate [Imdur] 1 tab PO DAILY 07/23/20 [History] Past Medical History - Past Health History Medical/Surgical History: Denies Medical/Surgical History HEENT History: Reports: Impaired Vision Other HEENT History: wears glasses Cardiovascular History: Reports: Afib, Arrhythmia, CAD, High Cholesterol, Hypertension, [place], Stents Other Cardiovascular History: last EF 60% Respiratory History: Reports: Pneumonia, Recurrent Gastrointestinal History: Reports: Colon Polyp, Diverticulosis Genitourinary History: Reports: Prostate Disorder, Other (See Below) Musculoskeletal History: Reports: None Neurological History: Reports: Neuropathy, Diabetic Psychiatric History: Reports: Anxiety Endocrine/Metabolic History: Reports: Diabetes, Type II Hematologic History: Reports: None Other Hematologic History: unsure-thinks he may have had transfusion with prostate surgery Immunologic History: Reports: None Oncologic (Cancer) History: Reports: Prostate Dermatologic History: Reports: None - Infectious Disease History Infectious Disease History: Reports: Chicken Pox, Measles - Past Surgical History Head Surgeries/Procedures: Reports: None HEENT Surgical History: Reports: None Cardiovascular Surgical History: Reports: Other (See Below) Respiratory Surgical History: Reports: None GI Surgical History: Reports: None Male Surgical History: Reports: Prostatectomy Neurological Surgical History: Reports: None Musculoskeletal Surgical History: Reports: None Oncologic Surgical History: Reports: None Other Oncologic Surgeries/Procedures: Radical Prostatectomy Dermatological Surgical History: Reports: None Social & Family History - Family History Family Medical History: Noncontributory Cardiac: Reports: Hypertension Endocrine/Metabolic: Reports: Diabetes, type II - Tobacco Use Smoking Status *Q: Never Smoker - Caffeine Use Caffeine Use: Reports: Coffee Caffeine Use Comment: 2 cups daily - Recreational Drug Use Recreational Drug Use: No ED ROS GENERAL - Review of Systems Review Of Systems: Comprehensive ROS is negative, except as noted in HPI. ED EXAM, GENERAL - Physical Exam Exam: See Below (see dictation) Course - Vital Signs Last Recorded V/S: Last Vital Signs Temp 96.2 F L 07/23/20 11:32 Pulse 73 07/23/20 11:32 Resp 14 07/23/20 11:32 BP 158/80 H 07/23/20 11:32 Pulse Ox 96 07/23/20 11:32 - Orders/Labs/Meds Orders: Active Orders 24 hr Category Date Time Status Admission Status [Patient Status] [ADT] Stat ADT 07/23/20 13:41 Active Cardiac Monitoring [RC] . DIRECTED Care 07/23/20 11:32 Active EKG Documentation Completion [RC] STAT Care 07/23/20 11:32 Active CORONAVIRUS COVID-19 PCR PHL Stat Lab 07/23/20 13:38 Ordered OSMOLALITY - SERUM [REF] Stat Lab 07/23/20 12:01 Received UA RFX LUZ AND CULT IF INDIC [URIN] Stat Lab 07/23/20 11:32 Ordered Labs: Laboratory Tests 07/23/20 07/23/20 07/23/20 Range/Units 12:01 12:01 12:01 WBC 11.77 H (4.0-11.0) K/uL RBC 4.52 (4.50-5.90) M/uL Hgb 13.5 (13.0-17.0) g/dL Hct 41.0 (38.0-50.0) % MCV 90.7 (80.0-98.0) fL MCH 29.9 (27.0-32.0) pg MCHC 32.9 (31.0-37.0) g/dL RDW Std Deviation 46.1 (28.0-62.0) fl RDW Coeff of Isael 14 (11.0-15.0) % Plt Count 328 (150-400) K/uL MPV 9.50 (7.40-12.00) fL Neut % (Auto) 77.4 (48.0-80.0) % Lymph % (Auto) 15.0 L (16.0-40.0) % [place] % (Auto) 5.5 (0.0-15.0) % Eos % (Auto) 1.7 (0.0-7.0) % Baso % (Auto) 0.4 (0.0-1.5) % Neut # (Auto) 9.1 H (1.4-5.7) K/uL Lymph # (Auto) 1.8 (0.6-2.4) K/uL [place] # (Auto) 0.7 (0.0-0.8) K/uL Eos # (Auto) 0.2 (0.0-0.7) K/uL Baso # (Auto) 0.1 (0.0-0.1) K/uL Nucleated RBC % 0.0 /100WBC Nucleated RBCs # 0 K/uL VBG pH 7.43 H (7.31-7.41) VBG pCO2 38 (35-45) mmHG VBG pO2 43 H (30-40) mmHG VBG HCO3 25 (22-30) mEq/L VBG Total CO2 22 L (41-51) mmol/L VBG Base Excess 0.5 (-3.0-3.0) Sodium 138 (136-148) mmol/L Potassium 3.9 (3.5-5.1) mmol/L Chloride 101 (98-107) mmol/L Carbon Dioxide 25.3 (21.0-32.0) mmol/L BUN 20 H (7.0-18.0) mg/dL Creatinine 1.5 H (0.8-1.3) mg/dL Est Cr Clr Drug Dosing 46.02 mL/min Estimated GFR (MDRD) 45.7 ml/min Glucose 235 H (74-106) mg/dL Calcium 8.9 (8.5-10.1) mg/dL Total Bilirubin 0.4 (0.2-1.0) mg/dL AST 16 (15-37) IU/L ALT 21 (14-63) IU/L Alkaline Phosphatase 39 L (46-116) U/L Troponin I < 0.050 (0.000-0.056) ng/mL Total Protein 7.0 (6.4-8.2) g/dL Albumin 3.4 (3.4-5.0) g/dL Globulin 3.6 (2.6-4.0) g/dL Albumin/Globulin Ratio 0.9 (0.9-1.6) Ketones (NEG) 07/23/20 Range/Units 12:01 WBC (4.0-11.0) K/uL RBC (4.50-5.90) M/uL Hgb (13.0-17.0) g/dL Hct (38.0-50.0) % MCV (80.0-98.0) fL MCH (27.0-32.0) pg MCHC (31.0-37.0) g/dL RDW Std Deviation (28.0-62.0) fl RDW Coeff of Isael (11.0-15.0) % Plt Count (150-400) K/uL MPV (7.40-12.00) fL Neut % (Auto) (48.0-80.0) % Lymph % (Auto) (16.0-40.0) % [place] % (Auto) (0.0-15.0) % Eos % (Auto) (0.0-7.0) % Baso % (Auto) (0.0-1.5) % Neut # (Auto) (1.4-5.7) K/uL Lymph # (Auto) (0.6-2.4) K/uL [place] # (Auto) (0.0-0.8) K/uL Eos # (Auto) (0.0-0.7) K/uL Baso # (Auto) (0.0-0.1) K/uL Nucleated RBC % /100WBC Nucleated RBCs # K/uL VBG pH (7.31-7.41) VBG pCO2 (35-45) mmHG VBG pO2 (30-40) mmHG VBG HCO3 (22-30) mEq/L VBG Total CO2 (41-51) mmol/L VBG Base Excess (-3.0-3.0) Sodium (136-148) mmol/L Potassium (3.5-5.1) mmol/L Chloride (98-107) mmol/L Carbon Dioxide (21.0-32.0) mmol/L BUN (7.0-18.0) mg/dL Creatinine (0.8-1.3) mg/dL Est Cr Clr Drug Dosing mL/min Estimated GFR (MDRD) ml/min Glucose (74-106) mg/dL Calcium (8.5-10.1) mg/dL Total Bilirubin (0.2-1.0) mg/dL AST (15-37) IU/L ALT (14-63) IU/L Alkaline Phosphatase (46-116) U/L Troponin I (0.000-0.056) ng/mL Total Protein (6.4-8.2) g/dL Albumin (3.4-5.0) g/dL Globulin (2.6-4.0) g/dL Albumin/Globulin Ratio (0.9-1.6) Ketones NEGATIVE (NEG) Meds: Medications Discontinued Medications Generic Name Dose Route Start Last Admin Trade Name Freq PRN Reason Stop Dose Admin Aspirin 81 mg 07/23/20 11:55 07/23/20 12:06 Aspirin PO 07/23/20 11:56 81 mg ONETIME ONE Administration Departure - Departure Time of Disposition: 14:00 Disposition: Refer to Observation Clinical Impression: Chest pain, rule out acute myocardial infarction, Hyperglycemia - Discharge Information Referrals: PCP,None [Primary Care Provider] - Forms: ED Department Discharge Sepsis Event Note (ED) - Evaluation Sepsis Screening Result: No Definite Risk - Focused Exam Vital Signs: Vital Signs Temp Pulse Resp BP Pulse Ox 07/23/20 11:32 96.2 F L 73 14 158/80 H 96 - My Orders Last 24 Hours: My Active Orders 07/23/20 11:32 Cardiac Monitoring [RC] . DIRECTED EKG Documentation Completion [RC] STAT UA RFX LUZ AND CULT IF INDIC [URIN] Stat 07/23/20 12:01 OSMOLALITY - SERUM [REF] Stat 07/23/20 13:38 CORONAVIRUS COVID-19 PCR PHL Stat 07/23/20 13:41 Admission Status [Patient Status] [ADT] Stat - Assessment/Plan Last 24 Hours: My Active Orders 07/23/20 11:32 Cardiac Monitoring [RC] . DIRECTED EKG Documentation Completion [RC] STAT UA RFX LUZ AND CULT IF INDIC [URIN] Stat 07/23/20 12:01 OSMOLALITY - SERUM [REF] Stat 07/23/20 13:38 CORONAVIRUS COVID-19 PCR PHL Stat 07/23/20 13:41 Admission Status [Patient Status] [ADT] Stat
--- NOTE | 2020-07-23 12:23 | CR ---
Chest: Portable view of the chest was obtained. Comparison: Prior chest x-ray of 03/10/20 . Heart size and mediastinum are normal. Lungs are clear with no acute parenchymal change. Bony structures are grossly intact. Impression: 1. Nothing acute is appreciated on portable chest x-ray. Diagnostic code #1 This report was dictated in MDT
[2020-07-23 12:36] LABS: BLOOD UREA NITROGEN,BUN 20 mg/dL (7.0-18.0); CARBON DIOXIDE,CO2 25.3 mmol/L (21.0-32.0); CHLORIDE,CL 101 mmol/L (98-107); GLUCOSE RANDOM 235 mg/dL (74-106); POTASSIUM,K 3.9 mmol/L (3.5-5.1); SODIUM,NA 138 mmol/L (136-148)
[2020-07-23] MEDS ORDERED: Docusate Sodium 100 MG Cap PO PRN (14:36)
[2020-07-23] MEDS ORDERED: Morphine 10 MG/ML Syringe IVPUSH PRN (14:36)
[2020-07-23] MEDS ORDERED: Acetaminophen 325 MG Tab PO PRN (14:36)
[2020-07-23] MEDS ORDERED: Ondansetron 4 MG/2 ML SDV IVPUSH PRN (14:36)
[2020-07-23] MEDS ORDERED: Sodium Chloride 0.9% 2.5 ML Syringe FLUSH PRN (14:36)
[2020-07-23 15:11] LABS: HEMOGLOBIN A1C 6.5 % (4.5-6.2)
[2020-07-23] MEDS ORDERED: Nitroglycerin 0.4 MG Tab.SL SL PRN (15:26)
--- NOTE | 2020-07-23 16:05 | PCM.HP.2 ---
H&P History of Present Illness - General Date of Service: 07/23/20 Admit Problem/Dx: Admission Diagnosis/Problem Admission Diagnosis/Problem Chest pain Source of Information: Patient History Limitations: Reports: No Limitations - History of Present Illness Initial Comments - Free Text/Narative: This 75-year-old male with past medical history of diabetes type 2, hypertension, HLD, chronic persistent A. fib, morbid obesity, and CAD with PCI to LAD October 2017 presented to the ER today with complaints of chest pain x2 days. He reports the chest pain started 2 days ago after eating breakfast that has been intermittent since then. It is sharp and sudden in nature and quickly resolves by itself. No associated symptoms such as nausea vomiting diaphoresis or shortness of breath. No radiation of the pain. He reports he took 3 aspirin prior to arrival to the ER which helped the pain. Reported the pain came back this morning which prompted him to come to the ER for evaluation. He denies any fevers chills sinus congestion or headaches. No shortness of breath or cough. No abdominal pain or constipation or diarrhea no black or bloody stools. He denies tobacco use no alcohol use and no recreational drug use. He does have a family history of CVA with his paternal grandfather no known CAD risk factors in his family. He reports he is been noticing his heart rate at home dipping to the 40s and 50s. Denies any lightheadedness or dizziness with this. In the ED slight leukocytosis noted at 11,770 BMP stable. Glucose noted to be 235. Troponin negative. EKG noted to be atrial fibrillation rate controlled no acute ischemic changes. Chest x-ray negative. He will be admitted observation for chest pain rule out ACS. In may he had labwork done, TSH 3.93, A1c 6.5, and lipid panel revealed triglycerides 224, Total cholesterol 208, LDL 123, HDL 40. He declines statins due to myalgias. PCP, ADRIANA Basilio - Related Data Allergies/Adverse Reactions: Allergies Allergy/AdvReac Type Severity Reaction Status Date / Time lisinopril Allergy Cannot Verified 07/23/20 15:52 Remember Home Medications: Home Meds metFORMIN HCl [Metformin HCl] 1,000 mg PO BIDMEALS 03/28/16 [History] Nitroglycerin [IJP: Nitroglycerin] 0.4 mg SL Q5M PRN #6 tablet, sublingual 11/01/17 [Rx] dilTIAZem HCL [Cartia Xt] 120 mg PO DAILY 12/09/17 [History] Aspirin [Halfprin] 81 mg PO DAILY 08/14/18 [History] Apixaban [Eliquis] 5 mg PO BID 10/04/19 [History] Cholestyramine/Sucrose [Cholestyramine] 2 packet PO BID 10/04/19 [History] Nova-3 Acid Ethyl Esters 1 gm PO BID 10/04/19 [History] carvediloL [Carvedilol] 25 mg PO BID 10/04/19 [History] Chlorthalidone 25 mg PO DAILY 07/23/20 [History] Isosorbide Mononitrate [Imdur] 30 mg PO DAILY 07/23/20 [History] Past Medical History - Past Health History Medical/Surgical History: Denies Medical/Surgical History HEENT History: Reports: Impaired Vision Other HEENT History: wears glasses Cardiovascular History: Reports: Afib, Arrhythmia, CAD, High Cholesterol, Hypertension, [place], Stents Other Cardiovascular History: last EF 60% Respiratory History: Reports: Pneumonia, Recurrent Gastrointestinal History: Reports: Colon Polyp, Diverticulosis Genitourinary History: Reports: Prostate Disorder, Other (See Below) Musculoskeletal History: Reports: None Neurological History: Reports: Neuropathy, Diabetic Psychiatric History: Reports: Anxiety Endocrine/Metabolic History: Reports: Diabetes, Type II Hematologic History: Reports: None Other Hematologic History: unsure-thinks he may have had transfusion with prostate surgery Immunologic History: Reports: None Oncologic (Cancer) History: Reports: Prostate Dermatologic History: Reports: None - Infectious Disease History Infectious Disease History: Reports: Chicken Pox, Measles - Past Surgical History Head Surgeries/Procedures: Reports: None HEENT Surgical History: Reports: None Cardiovascular Surgical History: Reports: Other (See Below) Respiratory Surgical History: Reports: None GI Surgical History: Reports: None Male Surgical History: Reports: Prostatectomy Neurological Surgical History: Reports: None Musculoskeletal Surgical History: Reports: None Oncologic Surgical History: Reports: None Other Oncologic Surgeries/Procedures: Radical Prostatectomy Dermatological Surgical History: Reports: None Social & Family History - Family History Family Medical History: Noncontributory Cardiac: Reports: Hypertension Endocrine/Metabolic: Reports: Diabetes, type II - Tobacco Use Smoking Status *Q: Never Smoker - Caffeine Use Caffeine Use: Reports: Coffee Caffeine Use Comment: 2 cups daily - Recreational Drug Use Recreational Drug Use: No H&P Review of Systems - Review of Systems: Review Of Systems: See Below General: Reports: No Symptoms. Denies: Fever, Chills, Malaise, Weakness HEENT: Reports: No Symptoms. Denies: Headaches, Sinus Congestion, Sore Throat, Vertigo Pulmonary: Reports: No Symptoms. Denies: Shortness of Breath Cardiovascular: Reports: Chest Pain. Denies: Edema, Lightheadedness, Syncope, Claudication Gastrointestinal: Reports: No Symptoms. Denies: Abdominal Pain, Black Stool, Bloody Stool, Nausea, Vomiting Genitourinary: Reports: No Symptoms. Denies: Dysuria, Frequency, Burning Musculoskeletal: Reports: No Symptoms. Denies: Neck Pain Skin: Reports: No Symptoms Psychiatric: Reports: No Symptoms Neurological: Reports: No Symptoms Hematologic/Lymphatic: Reports: No Symptoms Immunologic: Reports: No Symptoms Exam - Exam Exam: See Below - Vital Signs Vital Signs: Last Vital Signs Temp 96.2 F L 07/23/20 15:40 Pulse 60 07/23/20 15:40 Resp 18 07/23/20 15:40 BP 164/88 H 07/23/20 15:40 Pulse Ox 96 07/23/20 15:40 Weight: 129.274 kg - Exam General: Alert, Oriented, Cooperative HEENT: Conjunctiva Clear, Mucosa Moist & [place], Posterior Pharynx Clear Lungs: Clear to Auscultation, Normal Respiratory Effort Cardiovascular: Regular Rate, Normal S1, Normal S2, Irregular Rhythm GI/Abdominal Exam: Normal Bowel Sounds, Soft, Non-Tender Extremities: Normal Inspection, Normal Range of Motion, Non-Tender, No Pedal Edema Neuro Extensive - Mental Status: Alert, Oriented x3, Normal Mood/Affect Neuro Extensive - Motor, Sensory, Reflexes: CN II-XII Intact Psychiatric: Alert, Normal Affect, Normal Mood - Patient Data Lab Results Last 24 hrs: Laboratory Results - last 24 hr 07/23/20 07/23/20 07/23/20 Range/Units 12:01 12:01 12:01 WBC 11.77 H (4.0-11.0) K/uL RBC 4.52 (4.50-5.90) M/uL Hgb 13.5 (13.0-17.0) g/dL Hct 41.0 (38.0-50.0) % MCV 90.7 (80.0-98.0) fL MCH 29.9 (27.0-32.0) pg MCHC 32.9 (31.0-37.0) g/dL RDW Std Deviation 46.1 (28.0-62.0) fl RDW Coeff of Isael 14 (11.0-15.0) % Plt Count 328 (150-400) K/uL MPV 9.50 (7.40-12.00) fL Neut % (Auto) 77.4 (48.0-80.0) % Lymph % (Auto) 15.0 L (16.0-40.0) % Dougherty % (Auto) 5.5 (0.0-15.0) % Eos % (Auto) 1.7 (0.0-7.0) % Baso % (Auto) 0.4 (0.0-1.5) % Neut # (Auto) 9.1 H (1.4-5.7) K/uL Lymph # (Auto) 1.8 (0.6-2.4) K/uL Dougherty # (Auto) 0.7 (0.0-0.8) K/uL Eos # (Auto) 0.2 (0.0-0.7) K/uL Baso # (Auto) 0.1 (0.0-0.1) K/uL Nucleated RBC % 0.0 /100WBC Nucleated RBCs # 0 K/uL VBG pH 7.43 H (7.31-7.41) VBG pCO2 38 (35-45) mmHG VBG pO2 43 H (30-40) mmHG VBG HCO3 25 (22-30) mEq/L VBG Total CO2 22 L (41-51) mmol/L VBG Base Excess 0.5 (-3.0-3.0) Sodium 138 (136-148) mmol/L Potassium 3.9 (3.5-5.1) mmol/L Chloride 101 (98-107) mmol/L Carbon Dioxide 25.3 (21.0-32.0) mmol/L BUN 20 H (7.0-18.0) mg/dL Creatinine 1.5 H (0.8-1.3) mg/dL Est Cr Clr Drug Dosing 46.02 mL/min Estimated GFR (MDRD) 45.7 ml/min Glucose 235 H (74-106) mg/dL Hemoglobin A1c (4.5-6.2) % Calcium 8.9 (8.5-10.1) mg/dL Total Bilirubin 0.4 (0.2-1.0) mg/dL AST 16 (15-37) IU/L ALT 21 (14-63) IU/L Alkaline Phosphatase 39 L (46-116) U/L Troponin I < 0.050 (0.000-0.056) ng/mL Total Protein 7.0 (6.4-8.2) g/dL Albumin 3.4 (3.4-5.0) g/dL Globulin 3.6 (2.6-4.0) g/dL Albumin/Globulin Ratio 0.9 (0.9-1.6) Ketones (NEG) SARS Virus RNA (PCR) (NEGATIVE) 07/23/20 07/23/20 07/23/20 Range/Units 12:01 12:01 13:55 WBC (4.0-11.0) K/uL RBC (4.50-5.90) M/uL Hgb (13.0-17.0) g/dL Hct (38.0-50.0) % MCV (80.0-98.0) fL MCH (27.0-32.0) pg MCHC (31.0-37.0) g/dL RDW Std Deviation (28.0-62.0) fl RDW Coeff of Isael (11.0-15.0) % Plt Count (150-400) K/uL MPV (7.40-12.00) fL Neut % (Auto) (48.0-80.0) % Lymph % (Auto) (16.0-40.0) % [place] % (Auto) (0.0-15.0) % Eos % (Auto) (0.0-7.0) % Baso % (Auto) (0.0-1.5) % Neut # (Auto) (1.4-5.7) K/uL Lymph # (Auto) (0.6-2.4) K/uL [place] # (Auto) (0.0-0.8) K/uL Eos # (Auto) (0.0-0.7) K/uL Baso # (Auto) (0.0-0.1) K/uL Nucleated RBC % /100WBC Nucleated RBCs # K/uL VBG pH (7.31-7.41) VBG pCO2 (35-45) mmHG VBG pO2 (30-40) mmHG VBG HCO3 (22-30) mEq/L VBG Total CO2 (41-51) mmol/L VBG Base Excess (-3.0-3.0) Sodium (136-148) mmol/L Potassium (3.5-5.1) mmol/L Chloride (98-107) mmol/L Carbon Dioxide (21.0-32.0) mmol/L BUN (7.0-18.0) mg/dL Creatinine (0.8-1.3) mg/dL Est Cr Clr Drug Dosing mL/min Estimated GFR (MDRD) ml/min Glucose (74-106) mg/dL Hemoglobin A1c 6.5 H (4.5-6.2) % Calcium (8.5-10.1) mg/dL Total Bilirubin (0.2-1.0) mg/dL AST (15-37) IU/L ALT (14-63) IU/L Alkaline Phosphatase (46-116) U/L Troponin I (0.000-0.056) ng/mL Total Protein (6.4-8.2) g/dL Albumin (3.4-5.0) g/dL Globulin (2.6-4.0) g/dL Albumin/Globulin Ratio (0.9-1.6) Ketones NEGATIVE (NEG) SARS Virus RNA (PCR) NEGATIVE (NEGATIVE) Result Diagrams: 07/23/20 12:01 07/23/20 12:01 Sepsis Event Note - Evaluation Sepsis Screening Result: No Definite Risk - Focused Exam Vital Signs: Vital Signs Temp Pulse Resp BP Pulse Ox 07/23/20 15:40 96.2 F L 60 18 164/88 H 96 07/23/20 11:32 96.2 F L 73 14 158/80 H 96 - Problem List (1) Chest pain, rule out acute myocardial infarction SNOMED Code(s): 21096801 ICD Code: R07.9 - CHEST PAIN, UNSPECIFIED Status: Acute Current Visit: Yes (2) Anticoagulation adequate SNOMED Code(s): 095751120, 194513825 ICD Code: Z79.01 - [employer]NER [employer] (CURRENT) USE OF ANTICOAGULANTS Status: Chronic Current Visit: Yes (3) Afib SNOMED Code(s): 80715270 ICD Code: I48.91 - UNSPECIFIED ATRIAL FIBRILLATION Status: Chronic Curren t Visit: Yes Qualifiers: Atrial fibrillation type: longstanding persistent Qualified Code(s): I48.11 - Longstanding persistent atrial fibrillation (4) Hyperglycemia SNOMED Code(s): 76829499 ICD Code: R73.9 - HYPERGLYCEMIA, UNSPECIFIED Status: Acute Current Visit: Yes (5) Hypertension SNOMED Code(s): 91170591 ICD Code: I10 - ESSENTIAL (PRIMARY) HYPERTENSION Status: Acute Current Visit: No Qualifiers: Hypertension type: unspecified secondary hypertension Qualified Code(s): I15.9 - Secondary hypertension, unspecified (6) DM type 2 (diabetes mellitus, type 2) SNOMED Code(s): 92907452 ICD Code: E11.9 - TYPE 2 DIABETES MELLITUS WITHOUT COMPLICATIONS Status: Chronic Current Visit: Yes Qualifiers: Diabetes mellitus terminal superintendent insulin use: without mcfp use Diabetes mellitus complication status: with hyperglycemia Qualified Code(s): E11.65 - Type 2 diabetes mellitus with hyperglycemia (7) CAD (coronary artery disease) SNOMED Code(s): 35593802 ICD Code: I25.10 - ATHSCL HEART DISEASE OF [place] CORONARY ARTERY W/O ANG PCTRS Status: Chronic Current Visit: Yes Qualifiers: Coronary Disease-Associated Artery/Lesion type: [place] artery [place] vs. transplanted heart: [place] heart Associated angina: without angina Qualified Code(s): I25.10 - Atherosclerotic heart disease of [place] coronary artery without angina pectoris Problem List Initiated/Reviewed/Updated: Yes Orders Last 24hrs: Active Orders 24 hr Category Date Time Status Admission Status [Patient Status] [ADT] Stat ADT 07/23/20 13:41 Active Blood Glucose Check, Bedside [RC] TIDAC Care 07/23/20 14:36 Active Intake and Output [RC] Q12H Care 07/23/20 14:36 Active Oxygen Therapy [RC] PRN Care 07/23/20 14:36 Active Telemetry Monitoring [Cardiac Monitoring] [RC] . Care 07/23/20 14:35 Active DIRECTED Up With Assistance [RC] ASDIRECTED Care 07/23/20 14:36 Active VTE/DVT Education [RC] PER UNIT ROUTINE Care 07/23/20 14:36 Active Vital Signs [RC] Q4H Care 07/23/20 14:36 Active Heart Healthy Diet [DIET] Diet 07/23/20 Lunch Active Echo Comp wo Cont [US] Urgent Exams 07/23/20 14:46 Ordered BASIC METABOLIC PANEL,BMP [CHEM] AM Lab 07/24/20 05:11 Ordered CBC WITH AUTO DIFF [HEME] AM Lab 07/24/20 05:11 Ordered MAGNESIUM [CHEM] AM Lab 07/24/20 05:11 Ordered OSMOLALITY - SERUM [REF] Stat Lab 07/23/20 12:01 Received TROPONIN I [CHEM] Q6H Lab 07/23/20 17:30 Ordered TROPONIN I [CHEM] Q6H Lab 07/23/20 23:30 Ordered UA RFX LUZ AND CULT IF INDIC [URIN] Stat Lab 07/23/20 11:32 Ordered Acetaminophen [TylenoL] Med 07/23/20 14:36 Active 650 mg PO Q4H PRN Apixaban [Eliquis] Med 07/23/20 21:00 Active 5 mg PO BID Aspirin Med 07/24/20 09:00 Active 81 mg PO DAILY Chlorthalidone Med 07/24/20 09:00 Active 25 mg PO DAILY Diltiazem [Cardizem CD] Med 07/24/20 09:00 Active 120 mg PO DAILY Docusate Sodium [Colace] Med 07/23/20 14:36 Active 100 mg PO BID PRN Fish Oil/Nova-3 Fatty Acids [Fish Oil] Med 07/23/20 21:00 Active 1 gm PO BID Insulin Aspart [NovoLOG] Med 07/23/20 17:00 Active See Protocol SUBCUT TIDAC Isosorbide Mononitrate [Imdur] Med 07/24/20 09:00 Active 30 mg PO DAILY Morphine Med 07/23/20 14:36 Active 2 mg IVPUSH Q4H PRN Nitroglycerin [Nitrostat] Med 07/23/20 15:26 Active 0.4 mg SL Q5M PRN Ondansetron [Zofran] Med 07/23/20 14:36 Active 4 mg IVPUSH Q4H PRN Sodium Chloride 0.9% [Saline Flush] Med 07/23/20 14:36 Active 2.5 ml FLUSH ASDIRECTED PRN carvediloL [Coreg] Med 07/23/20 21:00 Active 25 mg PO BID Saline Lock Insert [OM.PC] Routine Oth 07/23/20 14:36 Ordered Resuscitation Status Routine Resus Stat 07/23/20 14:36 Ordered Medication Orders Acetaminophen (Tylenol) 650 mg PO Q4H PRN PRN Reason: Pain (Mild 1-3)/fever Apixaban (Eliquis) 5 mg PO BID CANDICE Aspirin (Aspirin) 81 mg PO DAILY CANDICE Carvedilol (Coreg) 25 mg PO BID CANDICE Chlorthalidone (Chlorthalidone) 25 mg PO DAILY CANDICE Diltiazem HCl (Cardizem Cd) 120 mg PO DAILY CANDICE Docusate Sodium (Colace) 100 mg PO BID PRN PRN Reason: Constipation Fish Oil (Fish Oil) 1 gm PO BID CANDICE Insulin Aspart (Novolog) 0 unit SUBCUT TIDAC CANDICE; Protocol Isosorbide Mononitrate (Imdur) 30 mg PO DAILY CANDICE Morphine Sulfate (Morphine) 2 mg IVPUSH Q4H PRN PRN Reason: Chest Pain Stop: 07/24/20 14:37 Nitroglycerin (Nitrostat) 0.4 mg SL Q5M PRN PRN Reason: Chest Pain Ondansetron HCl (Zofran) 4 mg IVPUSH Q4H PRN PRN Reason: Nausea Sodium Chloride (Saline Flush) 2.5 ml FLUSH ASDIRECTED PRN PRN Reason: Keep Vein Open Assessment/Plan Comment:: This 75 year old male admitted for chest pain rule out ACS 1. 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 - Arrange follow up with Dr Ramirez as outpatient - ASA daily - Declines statins. - Wants new prescription for Welchol as he ran out 2. Afib with anticoagulation - Continue Eliquis - Continue Diltiazem and Coreg 3. Dm Type 2 - Hold Metofrmin - Novolog SSI with meals VTE prophylaxis: Eliquis Dispo: 1 day
[2020-07-23] MEDS ORDERED: Pantoprazole 40 MG in Sodium Chloride 0.9% 10 ML IV ONE (16:08)
[2020-07-23] MEDS ORDERED: Alum Hydrox/Mag Hydrox/Simeth 15 ML, Lidocaine 2% 5 ML PO ONE ×4 (16:08→16:30)
[2020-07-23] MEDS: Insulin Aspart 100 Units/ML 3 ML Pen SUBCUT SCH (17:34)
[2020-07-23] MEDS: Carvedilol 25 MG Tab PO SCH (20:25)
[2020-07-23] MEDS: Apixaban 5 MG Tab PO SCH (20:25)
[2020-07-23] MEDS: Fish Oil/Omega-3 Fatty Acids 1 Gm Cap PO SCH (20:25)
[2020-07-24 07:17] LABS: CARBON DIOXIDE,CO2 27.6 mmol/L (21.0-32.0); POTASSIUM,K 3.9 mmol/L (3.5-5.1)
[2020-07-24] MEDS: Insulin Aspart 100 Units/ML 3 ML Pen SUBCUT SCH ×2 (08:25→13:34)
[2020-07-24] MEDS: Apixaban 5 MG Tab PO SCH (08:26)
[2020-07-24] MEDS: Carvedilol 25 MG Tab PO SCH (08:26)
[2020-07-24] MEDS: Fish Oil/Omega-3 Fatty Acids 1 Gm Cap PO SCH (08:27)
[2020-07-24] MEDS ORDERED: Chlorthalidone 25 MG Tab PO SCH (09:00)
[2020-07-24] MEDS ORDERED: Diltiazem 120 MG Cap.CD PO SCH (09:00)
[2020-07-24] MEDS ORDERED: Isosorbide Mononitrate 30 MG Tab.ER PO SCH (09:00)
[2020-07-24] MEDS ORDERED: Aspirin 81 MG Tab.Chew PO SCH (09:00)
[2020-07-24 09:38] VITALS: BP 136/65; PULSE 66
--- NOTE | 2020-07-24 13:01 | PCM.DCSUM1 ---
<Jose Barlow - Last Filed: 07/24/20 21:12> Discharge Summary - Hospital Course Free Text/Narrative:: Discharge summary 75-year-old male with past medical history of diabetes type 2, hypertension, HLD, chronic persistent A. fib, morbid obesity, and CAD with PCI to LAD October 2017 presented to the ER today with complaints of chest pain x2 days. He reports the chest pain started 2 days ago after eating breakfast that has been intermittent since then. It is sharp and sudden in nature and quickly resolves by itself. No associated symptoms such as nausea vomiting diaphoresis or shortness of breath. No radiation of the pain. He reports he took 3 aspirin prior to arrival to the ER which helped the pain. Reported the pain came back this morning which prompted him to come to the ER for evaluation. He denies any fevers chills sinus congestion or headaches. No shortness of breath or cough. No abdominal pain or constipation or diarrhea no black or bloody stools. He denies tobacco use no alcohol use and no recreational drug use. He does have a family history of CVA with his paternal grandfather no known CAD risk factors in his family. He reports he is been noticing his heart rate at home dipping to the 40s and 50s. Denies any lightheadedness or dizziness with this. In the ED slight leukocytosis noted at 11,770 BMP stable. Glucose noted to be 235. Troponin negative. EKG noted to be atrial fibrillation rate controlled no acute ischemic changes. Chest x-ray negative. He will be admitted observation for chest pain rule out ACS. In may he had labwork done, TSH 3.93, A1c 6.5, and lipid panel revealed triglycerides 224, Total cholesterol 208, LDL 123, HDL 40. He declines statins due to myalgias. Hospital course; troponin x3-. Vitals are stable. Chest x-ray otherwise negative. Repeat echocardiogram ordered however awaiting results. Telemetry suggestive of A. fib however rate controlled. Day of discharge patient requesting to go home and denies any chest pain and discomfort.. Advised to continue aspirin, prescription for nitroglycerin sublingual tablets provided as this episode could possibly be secondary to anginal pains; refill of cholesterol-lowering medication provided (not statin secondary to myalgias); primary and cardiology follow-up provided. Patient requested discharge Patient discharged in stable condition. - Discharge Data Discharge Date: 07/24/20 Discharge Disposition: Home, Self-Care 01 Condition: Stable - Referral to Home Health Primary Care Physician: PCP None - Patient Instructions Diet: No Alcoholic Beverages, Diabetic Diet Notify Provider of: Fever, Increased Pain, Nausea and/or Vomiting - Discharge Plan *PRESCRIPTION DRUG MONITORING PROGRAM REVIEWED*: No *COPY OF PRESCRIPTION DRUG MONITORING REPORT IN PATIENT BRIGIDO: No Prescriptions/Med Rec: Cholestyramine/Sucrose [Cholestyramine] 2 packet PO BID 14 Days #30 packet Nitroglycerin [Nitrostat] 0.3 mg SL ASDIRECTED PRN 10 Days #10 tab.sl PRN Reason: Pain Home Medications: Home Meds metFORMIN HCl [Metformin HCl] 1,000 mg PO BIDMEALS 03/28/16 [History] Nitroglycerin [IJP: Nitroglycerin] 0.4 mg SL Q5M PRN #6 tablet, sublingual 1 01/02/17 [Rx] dilTIAZem HCL [Cartia Xt] 120 mg PO DAILY 12/09/17 [History] Aspirin [Halfprin] 81 mg PO DAILY 08/14/18 [History] Apixaban [Eliquis] 5 mg PO BID 10/04/19 [History] [place]-3 Acid Ethyl Esters 1 gm PO BID 10/04/19 [History] carvediloL [Carvedilol] 25 mg PO BID 10/04/19 [History] Chlorthalidone 25 mg PO DAILY 07/23/20 [History] Isosorbide Mononitrate [Imdur] 30 mg PO DAILY 07/23/20 [History] Acetaminophen [Tylenol] 650 mg PO Q4H PRN tablet 07/24/20 [Rx] Aspirin 81 mg PO DAILY tab.chew 07/24/20 [Rx] Cholestyramine/Sucrose [Cholestyramine] 2 packet PO BID 14 Days #30 packet 07/24/20 [Rx] Docusate Sodium [Colace] 100 mg PO BID PRN cap 07/24/20 [Rx] Nitroglycerin [Nitrostat] 0.3 mg SL ASDIRECTED PRN 10 Days #10 tab.sl 07/24/20 [Rx] Patient Handouts: Nonspecific Chest Pain, Adult, [id number], Nitroglycerin sustained-release tablets or capsules Referrals: Haim Ramirez MD [Physician] - 08/05/20 4:00 pm Keysha Odonnell NP [Nurse Practitioner] - 07/30/20 2:00 pm - Discharge Summary/Plan Comment DC Time >30 min.: No - Patient Data Vitals - Most Recent: Last Vital Signs Temp 97.8 F 07/24/20 07:15 Pulse 66 07/24/20 08:28 Resp 18 07/24/20 07:15 BP 136/65 07/24/20 08:28 Pulse Ox 96 07/24/20 07:15 Weight - Most Recent: 132.63 kg I&O - Last 24 hours: Intake & Output 07/23/20 07/24/20 07/24/20 22:59 06:59 14:59 Intake Total 10 700 Output Total 1500 Balance 10 -800 Lab Results - Last 24 hrs: Laboratory Results - last 24 hr 07/23/20 07/23/20 07/23/20 Range/Units 12:01 12:01 12:01 WBC (4.0-11.0) K/uL RBC (4.50-5.90) M/uL Hgb (13.0-17.0) g/dL Hct (38.0-50.0) % MCV (80.0-98.0) fL MCH (27.0-32.0) pg MCHC (31.0-37.0) g/dL RDW Std Deviation (28.0-62.0) fl RDW Coeff of Isael (11.0-15.0) % Plt Count (150-400) K/uL MPV (7.40-12.00) fL Neut % (Auto) (48.0-80.0) % Lymph % (Auto) (16.0-40.0) % [place] % (Auto) (0.0-15.0) % Eos % (Auto) (0.0-7.0) % Baso % (Auto) (0.0-1.5) % Neut # (Auto) (1.4-5.7) K/uL Lymph # (Auto) (0.6-2.4) K/uL [place] # (Auto) (0.0-0.8) K/uL Eos # (Auto) (0.0-0.7) K/uL Baso # (Auto) (0.0-0.1) K/uL Nucleated RBC % /100WBC Nucleated RBCs # K/uL VBG pH 7.43 H (7.31-7.41) VBG pCO2 38 (35-45) mmHG VBG pO2 43 H (30-40) mmHG VBG HCO3 25 (22-30) mEq/L VBG Total CO2 22 L (41-51) mmol/L VBG Base Excess 0.5 (-3.0-3.0) Sodium (136-148) mmol/L Potassium (3.5-5.1) mmol/L Chloride (98-107) mmol/L Carbon Dioxide (21.0-32.0) mmol/L BUN (7.0-18.0) mg/dL Creatinine (0.8-1.3) mg/dL Est Cr Clr Drug Dosing mL/min Estimated GFR (MDRD) ml/min Glucose (74-106) mg/dL POC Glucose (60-110) mg/dL Hemoglobin A1c (4.5-6.2) % Serum Osmolality 292 (275-295) mosm/kg Calcium (8.5-10.1) mg/dL Magnesium (1.8-2.4) mg/dL Troponin I (0.000-0.056) ng/mL Urine Color Urine Appearance Urine pH (5.0-8.0) Ur Specific [place] (1.001-1.035) Urine Protein (NEGATIVE) mg/dL Urine Glucose (UA) (NEGATIVE) mg/dL Urine Ketones (NEGATIVE) mg/dL Urine Occult Blood (NEGATIVE) Urine Nitrite (NEGATIVE) Urine Bilirubin (NEGATIVE) Urine Urobilinogen (<2.0) EU/dL Ur Leukocyte Esterase (NEGATIVE) Urine RBC (0-2/HPF) Urine WBC (0-5/HPF) Ur Epithelial Cells (NONE-FEW) Urine Bacteria (NEGATIVE) Ketones NEGATIVE (NEG) SARS Virus RNA (PCR) (NEGATIVE) 07/23/20 07/23/20 07/23/20 Range/Units 12:01 13:55 16:59 WBC (4.0-11.0) K/uL RBC (4.50-5.90) M/uL Hgb (13.0-17.0) g/dL Hct (38.0-50.0) % MCV (80.0-98.0) fL MCH (27.0-32.0) pg MCHC (31.0-37.0) g/dL RDW Std Deviation (28.0-62.0) fl RDW Coeff of Isael (11.0-15.0) % Plt Count (150-400) K/uL MPV (7.40-12.00) fL Neut % (Auto) (48.0-80.0) % Lymph % (Auto) (16.0-40.0) % [place] % (Auto) (0.0-15.0) % Eos % (Auto) (0.0-7.0) % Baso % (Auto) (0.0-1.5) % Neut # (Auto) (1.4-5.7) K/uL Lymph # (Auto) (0.6-2.4) K/uL [place] # (Auto) (0.0-0.8) K/uL Eos # (Auto) (0.0-0.7) K/uL Baso # (Auto) (0.0-0.1) K/uL Nucleated RBC % /100WBC Nucleated RBCs # K/uL VBG pH (7.31-7.41) VBG pCO2 (35-45) mmHG VBG pO2 (30-40) mmHG VBG HCO3 (22-30) mEq/L VBG Total CO2 (41-51) mmol/L VBG Base Excess (-3.0-3.0) Sodium (136-148) mmol/L Potassium (3.5-5.1) mmol/L Chloride (98-107) mmol/L Carbon Dioxide (21.0-32.0) mmol/L BUN (7.0-18.0) mg/dL Creatinine (0.8-1.3) mg/dL Est Cr Clr Drug Dosing mL/min Estimated GFR (MDRD) ml/min Glucose (74-106) mg/dL POC Glucose 115 H (60-110) mg/dL Hemoglobin A1c 6.5 H (4.5-6.2) % Serum Osmolality (275-295) mosm/kg Calcium (8.5-10.1) mg/dL Magnesium (1.8-2.4) mg/dL Troponin I (0.000-0.056) ng/mL Urine Color Urine Appearance Urine pH (5.0-8.0) Ur Specific [place] (1.001-1.035) Urine Protein (NEGATIVE) mg/dL Urine Glucose (UA) (NEGATIVE) mg/dL Urine Ketones (NEGATIVE) mg/dL Urine Occult Blood (NEGATIVE) Urine Nitrite (NEGATIVE) Urine Bilirubin (NEGATIVE) Urine Urobilinogen (<2.0) EU/dL Ur Leukocyte Esterase (NEGATIVE) Urine RBC (0-2/HPF) Urine WBC (0-5/HPF) Ur Epithelial Cells (NONE-FEW) Urine Bacteria (NEGATIVE) Ketones (NEG) SARS Virus RNA (PCR) NEGATIVE (NEGATIVE) 07/23/20 07/23/20 07/23/20 Range/Units 17:53 18:00 23:35 WBC (4.0-11.0) K/uL RBC (4.50-5.90) M/uL Hgb (13.0-17.0) g/dL Hct (38.0-50.0) % MCV (80.0-98.0) fL MCH (27.0-32.0) pg MCHC (31.0-37.0) g/dL RDW Std Deviation (28.0-62.0) fl RDW Coeff of Isael (11.0-15.0) % Plt Count (150-400) K/uL MPV (7.40-12.00) fL Neut % (Auto) (48.0-80.0) % Lymph % (Auto) (16.0-40.0) % [place] % (Auto) (0.0-15.0) % Eos % (Auto) (0.0-7.0) % Baso % (Auto) (0.0-1.5) % Neut # (Auto) (1.4-5.7) K/uL Lymph # (Auto) (0.6-2.4) K/uL [place] # (Auto) (0.0-0.8) K/uL Eos # (Auto) (0.0-0.7) K/uL Baso # (Auto) (0.0-0.1) K/uL Nucleated RBC % /100WBC Nucleated RBCs # K/uL VBG pH (7.31-7.41) VBG pCO2 (35-45) mmHG VBG pO2 (30-40) mmHG VBG HCO3 (22-30) mEq/L VBG Total CO2 (41-51) mmol/L VBG Base Excess (-3.0-3.0) Sodium (136-148) mmol/L Potassium (3.5-5.1) mmol/L Chloride (98-107) mmol/L Carbon Dioxide (21.0-32.0) mmol/L BUN (7.0-18.0) mg/dL Creatinine (0.8-1.3) mg/dL Est Cr Clr Drug Dosing mL/min Estimated GFR (MDRD) ml/min Glucose (74-106) mg/dL POC Glucose (60-110) mg/dL Hemoglobin A1c (4.5-6.2) % Serum Osmolality (275-295) mosm/kg Calcium (8.5-10.1) mg/dL Magnesium (1.8-2.4) mg/dL Troponin I < 0.050 < 0.050 (0.000-0.056) ng/mL Urine Color YELLOW Urine Appearance CLEAR Urine pH 6.0 (5.0-8.0) Ur Specific [place] 1.015 (1.001-1.035) Urine Protein 30 H (NEGATIVE) mg/dL Urine Glucose (UA) NEGATIVE (NEGATIVE) mg/dL Urine Ketones NEGATIVE (NEGATIVE) mg/dL Urine Occult Blood NEGATIVE (NEGATIVE) Urine Nitrite NEGATIVE (NEGATIVE) Urine Bilirubin NEGATIVE (NEGATIVE) Urine Urobilinogen 0.2 (<2.0) EU/dL Ur Leukocyte Esterase NEGATIVE (NEGATIVE) Urine RBC 0-1 (0-2/HPF) Urine WBC 0-1 (0-5/HPF) Ur Epithelial Cells RARE (NONE-FEW) Urine Bacteria RARE (NEGATIVE) Ketones (NEG) SARS Virus RNA (PCR) (NEGATIVE) 07/24/20 07/24/20 07/24/20 Range/Units 06:12 06:44 06:44 WBC 10.72 (4.0-11.0) K/uL RBC 4.65 (4.50-5.90) M/uL Hgb 13.7 (13.0-17.0) g/dL Hct 42.0 (38.0-50.0) % MCV 90.3 (80.0-98.0) fL MCH 29.5 (27.0-32.0) pg MCHC 32.6 (31.0-37.0) g/dL RDW Std Deviation 45.8 (28.0-62.0) fl RDW Coeff of Isael 14 (11.0-15.0) % Plt Count 318 (150-400) K/uL MPV 9.30 (7.40-12.00) fL Neut % (Auto) 74.5 (48.0-80.0) % Lymph % (Auto) 15.8 L (16.0-40.0) % [place] % (Auto) 7.3 (0.0-15.0) % Eos % (Auto) 2.1 (0.0-7.0) % Baso % (Auto) 0.3 (0.0-1.5) % Neut # (Auto) 8.0 H (1.4-5.7) K/uL Lymph # (Auto) 1.7 (0.6-2.4) K/uL [place] # (Auto) 0.8 (0.0-0.8) K/uL Eos # (Auto) 0.2 (0.0-0.7) K/uL Baso # (Auto) 0.0 (0.0-0.1) K/uL Nucleated RBC % 0.0 /100WBC Nucleated RBCs # 0 K/uL VBG pH (7.31-7.41) VBG pCO2 (35-45) mmHG VBG pO2 (30-40) mmHG VBG HCO3 (22-30) mEq/L VBG Total CO2 (41-51) mmol/L VBG Base Excess (-3.0-3.0) Sodium 140 (136-148) mmol/L Potassium 3.9 (3.5-5.1) mmol/L Chloride 102 (98-107) mmol/L Carbon Dioxide 27.6 (21.0-32.0) mmol/L BUN 18 (7.0-18.0) mg/dL Creatinine 1.5 H (0.8-1.3) mg/dL Est Cr Clr Drug Dosing 46.02 mL/min Estimated GFR (MDRD) 45.7 ml/min Glucose 139 H (74-106) mg/dL POC Glucose 150 H (60-110) mg/dL Hemoglobin A1c (4.5-6.2) % Serum Osmolality (275-295) mosm/kg Calcium 9.0 (8.5-10.1) mg/dL Magnesium 2.0 (1.8-2.4) mg/dL Troponin I (0.000-0.056) ng/mL Urine Color Urine Appearance Urine pH (5.0-8.0) Ur Specific [place] (1.001-1.035) Urine Protein (NEGATIVE) mg/dL Urine Glucose (UA) (NEGATIVE) mg/dL Urine Ketones (NEGATIVE) mg/dL Urine Occult Blood (NEGATIVE) Urine Nitrite (NEGATIVE) Urine Bilirubin (NEGATIVE) Urine Urobilinogen (<2.0) EU/dL Ur Leukocyte Esterase (NEGATIVE) Urine RBC (0-2/HPF) Urine WBC (0-5/HPF) Ur Epithelial Cells (NONE-FEW) Urine Bacteria (NEGATIVE) Ketones (NEG) SARS Virus RNA (PCR) (NEGATIVE) 07/24/20 Range/Units 12:17 WBC (4.0-11.0) K/uL RBC (4.50-5.90) M/uL Hgb (13.0-17.0) g/dL Hct (38.0-50.0) % MCV (80.0-98.0) fL MCH (27.0-32.0) pg MCHC (31.0-37.0) g/dL RDW Std Deviation (28.0-62.0) fl RDW Coeff of Isael (11.0-15.0) % Plt Count (150-400) K/uL MPV (7.40-12.00) fL Neut % (Auto) (48.0-80.0) % Lymph % (Auto) (16.0-40.0) % [place] % (Auto) (0.0-15.0) % Eos % (Auto) (0.0-7.0) % Baso % (Auto) (0.0-1.5) % Neut # (Auto) (1.4-5.7) K/uL Lymph # (Auto) (0.6-2.4) K/uL [place] # (Auto) (0.0-0.8) K/uL Eos # (Auto) (0.0-0.7) K/uL Baso # (Auto) (0.0-0.1) K/uL Nucleated RBC % /100WBC Nucleated RBCs # K/uL VBG pH (7.31-7.41) VBG pCO2 (35-45) mmHG VBG pO2 (30-40) mmHG VBG HCO3 (22-30) mEq/L VBG Total CO2 (41-51) mmol/L VBG Base Excess (-3.0-3.0) Sodium (136-148) mmol/L Potassium (3.5-5.1) mmol/L Chloride (98-107) mmol/L Carbon Dioxide (21.0-32.0) mmol/L BUN (7.0-18.0) mg/dL Creatinine (0.8-1.3) mg/dL Est Cr Clr Drug Dosing mL/min Estimated GFR (MDRD) ml/min Glucose (74-106) mg/dL POC Glucose 138 H (60-110) mg/dL Hemoglobin A1c (4.5-6.2) % Serum Osmolality (275-295) mosm/kg Calcium (8.5-10.1) mg/dL Magnesium (1.8-2.4) mg/dL Troponin I (0.000-0.056) ng/mL Urine Color Urine Appearance Urine pH (5.0-8.0) Ur Specific [place] (1.001-1.035) Urine Protein (NEGATIVE) mg/dL Urine Glucose (UA) (NEGATIVE) mg/dL Urine Ketones (NEGATIVE) mg/dL Urine Occult Blood (NEGATIVE) Urine Nitrite (NEGATIVE) Urine Bilirubin (NEGATIVE) Urine Urobilinogen (<2.0) EU/dL Ur Leukocyte Esterase (NEGATIVE) Urine RBC (0-2/HPF) Urine WBC (0-5/HPF) Ur Epithelial Cells (NONE-FEW) Urine Bacteria (NEGATIVE) Ketones (NEG) SARS Virus RNA (PCR) (NEGATIVE) Med Orders - Current: Current Medications Acetaminophen (Tylenol) 650 mg PO Q4H PRN PRN Reason: Pain (Mild 1-3)/fever Apixaban (Eliquis) 5 mg PO BID [facility] Last Admin: 07/24/20 08:26 Dose: 5 mg Documented by: Aspirin (Aspirin) 81 mg PO DAILY [facility] Last Admin: 07/24/20 08:26 Dose: 81 mg Documented by: Carvedilol (Coreg) 25 mg PO BID [facility] Last Admin: 07/24/20 08:26 Dose: 25 mg Documented by: Chlorthalidone (Chlorthalidone) 25 mg PO DAILY [facility] Last Admin: 07/24/20 08:27 Dose: 25 mg Documented by: Diltiazem HCl (Cardizem Cd) 120 mg PO DAILY [facility] Last Admin: 07/24/20 08:28 Dose: 120 mg Documented by: Docusate Sodium (Colace) 100 mg PO BID PRN PRN Reason: Constipation Fish Oil (Fish Oil) 1 gm PO BID [facility] Last Admin: 07/24/20 08:27 Dose: 1 gm Documented by: Insulin Aspart (Novolog) 0 unit SUBCUT TIDAC [facility]; Protocol Last Admin: 07/24/20 08:25 Dose: 2 units Documented by: Isosorbide Mononitrate (Imdur) 30 mg PO DAILY [facility] Last Admin: 07/24/20 08:27 Dose: 30 mg Documented by: Morphine Sulfate (Morphine) 2 mg IVPUSH Q4H PRN PRN Reason: Chest Pain Stop: 07/24/20 14:37 Nitroglycerin (Nitrostat) 0.4 mg SL Q5M PRN PRN Reason: Chest Pain Ondansetron HCl (Zofran) 4 mg IVPUSH Q4H PRN PRN Reason: Nausea Sodium Chloride (Saline Flush) 2.5 ml FLUSH ASDIRECTED PRN PRN Reason: Keep Vein Open Discontinued Medications Aspirin (Aspirin) 81 mg PO ONETIME ONE Stop: 07/23/20 11:56 Last Admin: 07/23/20 12:06 Dose: 81 mg Documented by: Al Hydroxide/Mg Hydroxide 15 (ml/ Lidocaine HCl 5 ml) 0 ml PO ONETIME ONE Stop: 07/23/20 16:09 Last Admin: 07/23/20 17:33 Dose: Not Given Documented by: Al Hydroxide/Mg Hydroxide 15 (ml/ Lidocaine HCl 5 ml) 0 ml PO ONETIME ONE Stop: 07/23/20 16:31 Last Admin: 07/23/20 16:29 Dose: 20 each Documented by: Pantoprazole Sodium 40 mg/ (Sodium Chloride) 10 mls @ 300 mls/hr IV NOW ONE Stop: 07/23/20 16:09 Last Admin: 07/23/20 16:33 Dose: 300 mls/hr Documented by: <Schuyler,Hooria - Last Filed: 07/27/20 11:32> Discharge Summary - Hospital Course Free Text/Narrative:: I have seen and evaluated the patient and agree with the residents note unless specified in my note - Referral to Home Health Primary Care Physician: PCP None - Patient Data Vitals - Most Recent: Last Vital Signs Temp 36.6 C 07/24/20 07:15 Pulse 66 07/24/20 08:28 Resp 18 07/24/20 07:15 BP 136/65 07/24/20 08:28 Pulse Ox 96 07/24/20 07:15 Med Orders - Current: Current Medications Discontinued Medications Acetaminophen (Tylenol) 650 mg PO Q4H PRN PRN Reason: Pain (Mild 1-3)/fever Apixaban (Eliquis) 5 mg PO BID [facility] Last Admin: 07/24/20 08:26 Dose: 5 mg Documented by: Aspirin (Aspirin) 81 mg PO ONETIME ONE Stop: 07/23/20 11:56 Last Admin: 07/23/20 12:06 Dose: 81 mg Documented by: Aspirin (Aspirin) 81 mg PO DAILY [facility] Last Admin: 07/24/20 08:26 Dose: 81 mg Documented by: Carvedilol (Coreg) 25 mg PO BID [facility] Last Admin: 07/24/20 08:26 Dose: 25 mg Documented by: Chlorthalidone (Chlorthalidone) 25 mg PO DAILY [facility] Last Admin: 07/24/20 08:27 Dose: 25 mg Documented by: Al Hydroxide/Mg Hydroxide 15 (ml/ Lidocaine HCl 5 ml) 0 ml PO ONETIME ONE Stop: 07/23/20 16:09 Last Admin: 07/23/20 17:33 Dose: Not Given Documented by: Al Hydroxide/Mg Hydroxide 15 (ml/ Lidocaine HCl 5 ml) 0 ml PO ONETIME ONE Stop: 07/23/20 16:31 Last Admin: 07/23/20 16:29 Dose: 20 each Documented by: Diltiazem HCl (Cardizem Cd) 120 mg PO DAILY [facility] Last Admin: 07/24/20 08:28 Dose: 120 mg Documented by: Docusate Sodium (Colace) 100 mg PO BID PRN PRN Reason: Constipation Fish Oil (Fish Oil) 1 gm PO BID [facility] Last Admin: 07/24/20 08:27 Dose: 1 gm Documented by: Pantoprazole Sodium 40 mg/ (Sodium Chloride) 10 mls @ 300 mls/hr IV NOW ONE Stop: 07/23/20 16:09 Last Admin: 07/23/20 16:33 Dose: 300 mls/hr Documented by: Insulin Aspart (Novolog) 0 unit SUBCUT TIDAC [facility]; Protocol Last Admin: 07/24/20 13:34 Dose: Not Given Documented by: Isosorbide Mononitrate (Imdur) 30 mg PO DAILY [facility] Last Admin: 07/24/20 08:27 Dose: 30 mg Documented by: Morphine Sulfate (Morphine) 2 mg IVPUSH Q4H PRN PRN Reason: Chest Pain Stop: 07/24/20 14:37 Nitroglycerin (Nitrostat) 0.4 mg SL Q5M PRN PRN Reason: Chest Pain Ondansetron HCl (Zofran) 4 mg IVPUSH Q4H PRN PRN Reason: Nausea Sodium Chloride (Saline Flush) 2.5 ml FLUSH ASDIRECTED PRN PRN Reason: Keep Vein Open
--- NOTE | 2020-07-30 11:04 | ECHO ---
EXAM DATE: 07/24/20 PATIENT'S AGE: 75 The ECHO report has been scanned into [facility] and can be seen in this patient's EMR (Electronic Medical Record) under the REPORTS section. The report has also been scanned into PACS. [facility]
== END 2020-07-24 13:30 | disposition home or self-care (01) ==
LOC: MW.ED 11:27 → MW.MS 14:26 → OBSVTOIN 07-24 12:55 → INTOOBSV 07-24 12:55 → UNDODISIN 07-24 13:30
PROVIDERS: ADMIT Internal Medicine; ATTEND Internal Medicine
DX: R07.89 Other chest pain (principal); I25.10 Atherosclerotic heart disease of native coronary artery without angina pectoris; E78.00 Pure hypercholesterolemia, unspecified; I10 Essential (primary) hypertension; F41.9 Anxiety disorder, unspecified; E11.40 Type 2 diabetes mellitus with diabetic neuropathy, unspecified; I48.11 Longstanding persistent atrial fibrillation; E11.65 Type 2 diabetes mellitus with hyperglycemia; E66.01 Morbid (severe) obesity due to excess calories; Z79.82 Long term (current) use of aspirin; Z79.899 Other long term (current) drug therapy; Z95.5 Presence of coronary angioplasty implant and graft; Z88.8 Allergy status to other drugs, medicaments and biological substances; Z79.01 Long term (current) use of anticoagulants; Z20.828 Contact with and (suspected) exposure to other viral communicable diseases; Z79.84 Long term (current) use of oral hypoglycemic drugs; Z68.41 Body mass index [BMI] 40.0-44.9, adult
CPT/HCPCS: 36415; 71045; 80048; 80053; 81001; 82009; 82803; 82962; 83036; 83735; 83930; 84484; 85025; 93005; 93306; 99285; A9270; C9113; G0378; J1815; J7050; U0002; 93010; 99283

== ENCOUNTER 2020-12-05 11:56 | Emergency (ER) | payer MEDICARE, OTHER ==
[2020-12-05 12:18] VITALS: BP 130/76; PULSE 74
--- NOTE | 2020-12-05 13:48 | EDM.PDOC ---
ED HPI GENERAL MEDICAL PROBLEM - General Chief Complaint: Lower Extremity Injury/Pain Stated Complaint: LUMP ON LEFT LEG Time Seen by Provider: 12/05/20 11:58 Source of Information: Reports: Patient History Limitations: Reports: No Limitations - History of Present Illness INITIAL COMMENTS - FREE TEXT/NARRATIVE: HISTORY AND PHYSICAL: History of present illness: Patient is a 75-year-old male who presents emergency room today with concern of a lump to the back side of his left calf that he noticed this morning. Patient states that there is bruising around the area of the lump and denies any trauma or injury. Patient states he recently had another similar lump with surrounding bruising on his arm that is nearly gone away last week. States he just received the Covid vaccine yesterday. Patient denies fever, chills, chest pain, shortness of breath, or cough. Denies headache, neck stiff ness, change in vision, syncope, or near syncope. Denies nausea, vomiting, abdominal pain, diarrhea, constipation, or dysuria. Has not noted any blood in urine or stool. Patient has been eating and drinking appropriately. Review of systems: As per history of present illness and below otherwise all systems reviewed and negative. Past medical history: As per history of present illness and as reviewed below otherwise noncontributory. Surgical history: As per history of present illness and as reviewed below otherwise noncontributory. Social history: See social history for further information Family history: As per history of present illness and as reviewed below otherwise noncontributory. Physical exam: General: Patient is alert, oriented, and in no acute distress. Patient sitting comfortably on exam table. HEENT: Atraumatic, normocephalic, pupils equal and reactive bilaterally, negative for conjunctival pallor or scleral icterus, mucous membranes moist, TMs normal bilaterally, throat clear, neck supple, nontender, trachea midline. No drooling or trismus noted. No meningeal signs. No hot potato voice noted. Lungs: Clear to auscultation, breath sounds equal bilaterally, chest nontender. Heart: S1S2, regular rate and rhythm without overt murmur Abdomen: Soft, nondistended, nontender. Negative for masses or hepatosplenomegaly. Negative for costovertebral tenderness. Pelvis: Stable nontender. Genitourinary: Deferred. Rectal: Deferred. Skin: Intact, warm, dry. No lesions or rashes noted. Extremities: There is a subcutaneous nodule, approximately 2cm that is non tender to palpation with surrounding circular bruising overlying the nodule. No erythema or warmth of the area. Patient has full range of motion of the complete left lower extremity without pain or difficulty. Dorsalis pedis and posterior tibial pulses are grossly intact of the left lower extremity with capillary refill less than 2 seconds. Otherwise, atraumatic, negative for cords or calf pain. Neurovascular unremarkable. Neuro: Awake, alert, oriented. Cranial nerves II through XII unremarkable. Cerebellum unremarkable. Motor and sensory unremarkable throughout. Exam nonfocal. Notes: Signs and symptoms that were prompt return to the ED thoroughly discussed with patient. Discussed importance of follow-up with primary care provider. Voices understanding and is agreeable to plan of care. Denies any further questions or concerns at this time. Diagnostics: LE august US Therapeutics: None Prescription: None Impression: Subcutaneous nodule, left lower extremity Ecchymosis Plan: 1. You can use Tylenol as directed for pain and discomfort. Follow up with a primary care provider as discussed. Return to the ED as needed and as discussed. Definitive disposition and diagnosis as appropriate pending reevaluation and review of above. - Related Data Allergies Allergy/AdvReac Type Severity Reaction Status Date / Time lisinopril Allergy Cannot Verified 12/05/20 12:19 Remember Home Meds: Home Meds metFORMIN HCl [Metformin HCl] 1,000 mg PO BIDMEALS 03/28/16 [History] Nitroglycerin [IJP: Nitroglycerin] 0.4 mg SL Q5M PRN #6 tablet, sublingual 11/01/17 [Rx] dilTIAZem HCL [Cartia Xt] 120 mg PO DAILY 12/09/17 [History] Aspirin [Halfprin] 81 mg PO DAILY 08/14/18 [History] Apixaban [Eliquis] 5 mg PO BID 10/04/19 [History] Rosman-3 Acid Ethyl Esters 1 gm PO BID 10/04/19 [History] carvediloL [Carvedilol] 25 mg PO BID 10/04/19 [History] Chlorthalidone 25 mg PO DAILY 07/23/20 [History] Isosorbide Mononitrate [Imdur] 30 mg PO DAILY 07/23/20 [History] Acetaminophen [Tylenol] 650 mg PO Q4H PRN tablet 07/24/20 [Rx] Aspirin 81 mg PO DAILY tab.chew 07/24/20 [Rx] Cholestyramine/Sucrose [Cholestyramine] 2 packet PO BID 14 Days #30 packet 07/24/20 [Rx] Docusate Sodium [Colace] 100 mg PO BID PRN cap 07/24/20 [Rx] Nitroglycerin [Nitrostat] 0.3 mg SL ASDIRECTED PRN 10 Days #10 tab.sl 07/24/20 [Rx] Past Medical History - Past Health History Medical/Surgical History: Denies Medical/Surgical History HEENT History: Reports: Impaired Vision Other HEENT History: wears glasses Cardiovascular History: Reports: Afib, Arrhythmia, CAD, High Cholesterol, Hypertension, [place], Stents Other Cardiovascular History: last EF 60% Respiratory History: Reports: Pneumonia, Recurrent Gastrointestinal History: Reports: Colon Polyp, Diverticulosis Genitourinary History: Reports: Prostate Disorder, Other (See Below) Musculoskeletal History: Reports: None Neurological History: Reports: Neuropathy, Diabetic Psychiatric History: Reports: Anxiety Endocrine/Metabolic History: Reports: Diabetes, Type II Hematologic History: Reports: None Other Hematologic History: unsure-thinks he may have had transfusion with prostate surgery Immunologic History: Reports: None Oncologic (Cancer) History: Reports: Prostate Dermatologic History: Reports: None - Infectious Disease History Infectious Disease History: Reports: Chicken Pox, Measles - Past Surgical History Head Surgeries/Procedures: Reports: None HEENT Surgical History: Reports: None Cardiovascular Surgical History: Reports: Other (See Below) Respiratory Surgical History: Reports: None GI Surgical History: Reports: None Male Surgical History: Reports: Prostatectomy Other Male Surgeries/Procedures: Ureter stent removal Endocrine Surgical History: Reports: None Neurological Surgical History: Reports: None Musculoskeletal Surgical History: Reports: None Oncologic Surgical History: Reports: None Other Oncologic Surgeries/Procedures: Radical Prostatectomy Dermatological Surgical History: Reports: None Social & Family History - Family History Family Medical History: No Pertinent Family History Cardiac: Reports: Hypertension Endocrine/Metabolic: Reports: Diabetes, type II - Tobacco Use Tobacco Use Status *Q: Never Tobacco User - Caffeine Use Caffeine Use: Reports: None Caffeine Use Comment: 2 cups daily - Recreational Drug Use Recreational Drug Use: No Review of Systems - Review of Systems Review Of Systems: Comprehensive ROS is negative, except as noted in HPI. ED EXAM, GENERAL - Physical Exam Exam: See Below (see dictation) Course - Vital Signs Last Recorded V/S: Last Vital Signs Temp 97.7 F 12/05/20 12:16 Pulse 74 12/05/20 12:16 Resp 16 12/05/20 12:16 BP 130/76 12/05/20 12:16 Pulse Ox 93 L 12/05/20 12:16 Departure - Departure Time of Disposition: 14:35 Disposition: Home, Self-Care 01 Clinical Impression: Subcutaneous nodule, Ecchymosis - Discharge Information Referrals: Haim Ramirez MD [Primary Care Provider] - Forms: ED Department Discharge Additional Instructions: The following information is given to patients seen in the emergency department who are being discharged to home. This information is to outline your options for follow-up care. We provide all patients seen in our emergency department with a follow-up referral. The need for follow-up, as well as the timing and circumstances, are variable depending upon the specifics of your emergency department visit. If you don't have a primary care physician on staff, we will provide you with a referral. We always advise you to contact your personal physician following an emergency department visit to inform them of the circumstance of the visit and for follow-up with them and/or the need for any referrals to a consulting specialist. The emergency department will also refer you to a specialist when appropriate. This referral assures that you have the opportunity for follow-up care with a specialist. All of these measure are taken in an effort to provide you with optimal care, which includes your follow-up. Under all circumstances we always encourage you to contact your private physician who remains a resource for coordinating your care. When calling for follow-up care, please make the office aware that this follow-up is from your recent emergency room visit. If for any reason you are refused follow-up, please contact the [facility] Emergency Department at and asked to speak to the emergency department charge nurse. [facility] [address] [place] [id number] [address] [id number] 1. You can use Tylenol as directed for pain discomfort. Follow-up with a primary care provider as discussed. Return to the ED as needed and as discussed . Sepsis Event Note (ED) - Evaluation Sepsis Screening Result: No Definite Risk - Focused Exam Vital Signs: Vital Signs Temp Pulse Resp BP Pulse Ox 12/05/20 12:16 97.7 F 74 16 130/76 93 L
--- NOTE | 2020-12-05 14:30 | US ---
INDICATION: 5 cm purplish bruise left upper calf. Patient on blood thinners. TECHNIQUE: Ultrasound venous duplex lower left extremity. Compression venous exam was performed using diego-scale, color Doppler, and spectral Doppler analysis. COMPARISON: None. FINDINGS: Sonographic imaging demonstrates the left common femoral, deep femoral, superficial femoral, popliteal, posterior tibial, peroneal and greater saphenous and the contralateral right common femoral veins to be fully compressible with normal color Doppler blood flow. 2.2 cm mass in the left medial posterior calf in the region of clinical concern. This mass is centrally cystic and peripherally solid and hyperechoic. I suspect this is a hematoma. Remainder negative. IMPRESSION: No DVT left leg. 2.2 cm peripherally hyperechoic and solid and centrally cystic mass in the left medial posterior calf in the region of clinical concern is nonspecific but would be consistent with a hematoma. Clinical correlation and follow-up to resolution suggested. Dictated by Patel Pulido MD @ Dec 05 2020 2:24PM Signed by Dr. Patel Pulido @ Dec 05 2020 2:28PM
== END 2020-12-05 14:56 | disposition home or self-care (01) ==
LOC: MW.ED 11:56
DX: M79.81 Nontraumatic hematoma of soft tissue (principal); R22.42 Localized swelling, mass and lump, left lower limb; I48.91 Unspecified atrial fibrillation; I25.10 Atherosclerotic heart disease of native coronary artery without angina pectoris; E11.40 Type 2 diabetes mellitus with diabetic neuropathy, unspecified; I10 Essential (primary) hypertension; I25.2 Old myocardial infarction; Z95.5 Presence of coronary angioplasty implant and graft; Z79.01 Long term (current) use of anticoagulants; Z79.82 Long term (current) use of aspirin; Z79.84 Long term (current) use of oral hypoglycemic drugs; Z79.899 Other long term (current) drug therapy; Z88.8 Allergy status to other drugs, medicaments and biological substances
CPT/HCPCS: 93971-26-LT; 93971-LT; 99282; 99283-25

== ENCOUNTER 2022-07-27 08:05 | Emergency (ER) | payer MEDICARE, OTHER ==
[2022-07-27] MEDS ORDERED: Nitroglycerin 0.4 MG Tab.SL SL ONE (08:16)
[2022-07-27] MEDS ORDERED: Aspirin 81 MG Tab.Chew PO ONE (08:17)
[2022-07-27] MEDS ORDERED: fentaNYL 50 MCG/ML SDV IVPUSH ONE (08:36)
[2022-07-27] MEDS ORDERED: Magnesium Sulfate (4.06 MEQ/ML) 5 GM/10 ML SDV IV STA (08:59)
[2022-07-27] MEDS ORDERED: Magnesium Sulfate/Water 2 GM in Premix Bag 1 BAG IV ONE (09:06)
[2022-07-27 09:08] LABS: CARBON DIOXIDE,CO2 24.4 mmol/L (21.0-32.0); POTASSIUM,K 3.8 mmol/L (3.5-5.1)
[2022-07-27] MEDS ORDERED: Iopamidol 755 MG/ML 500 ML Multipack Bottle IVPUSH STA (10:13)
[2022-07-27 10:33] VITALS: BP 171/92; PULSE 58
[2022-07-27] MEDS ORDERED: Heparin Sodium/0.45% NaCl 500 ML IV SCH (13:00)
[2022-07-27] MEDS ORDERED: Heparin Sodium 5,000 Units/ML Vial IVPUSH PRN (13:19)
== END 2022-07-27 14:29 ==
LOC: MW.ED 08:05
DX: I21.4 Non-ST elevation (NSTEMI) myocardial infarction (principal); I48.91 Unspecified atrial fibrillation; I25.10 Atherosclerotic heart disease of native coronary artery without angina pectoris; E78.00 Pure hypercholesterolemia, unspecified; I10 Essential (primary) hypertension; I25.2 Old myocardial infarction; E11.9 Type 2 diabetes mellitus without complications; Z20.822 Contact with and (suspected) exposure to COVID-19; Z79.01 Long term (current) use of anticoagulants; Z79.84 Long term (current) use of oral hypoglycemic drugs; Z88.8 Allergy status to other drugs, medicaments and biological substances
CPT/HCPCS: 36415; 36573; 71045; 71045-26; 71275; 71275-26; 74175; 74175-26; 80053; 83605; 83735; 83880; 84443; 84484; 85025; 85730; 87040; 87154; 93005; 93010; 96365; 96367; 96375; 99285; 99285-25; A9270-GY; J1644; J3010; J3475; Q9967; U0002